=== PATIENT | male | born 1985 | race Caucasian/White ===

== ENCOUNTER 2023-05-25 11:12 | Inpatient (IN) | payer MEDICARE, SELFPAY ==
--- NOTE | 2023-05-25 11:18 | ED_ITS ---
HPI - General Adult General Chief complaint: Psychiatric Symptoms Stated complaint: Crisis Time Seen by Provider: 05/25/23 11:34 Source: patient, RN notes reviewed and old records reviewed Mode of arrival: ambulatory History of Present Illness HPI narrative: 38-year-old male with past medical history of schizophrenia presenting to the ED complaining of ETOH and cocaine abuse with increasing depression, and auditory/visual hallucinations. Reports noncompliance with his medications x few days. Admits has been on ETOH-cocaine longoria, unable to elicit quantity. Does report history of ETOH withdrawal with withdrawal seizures. admits to vague SI/depression, denies HI. Denies fever/chills, abdominal pain, nausea/vomiting Related Data Home Medications Medication Instructions Recorded Confirmed buprenorphine 2 mg-naloxone 0.5 mg 2 mg sublingual DAILY 05/25/23 05/25/23 sublingual film chlorpromazine 50 mg tablet 50 mg PO TID 05/25/23 05/25/23 clonazepam 1 mg tablet 1 mg PO TID 05/25/23 05/25/23 furosemide 20 mg tablet 20 mg PO DAILY 05/25/23 05/25/23 levothyroxine 50 mcg tablet 50 mcg PO DAILY 05/25/23 05/25/23 lithium carbonate 300 mg capsule 900 mg PO DAILY 05/25/23 05/25/23 metformin 500 mg tablet 500 mg PO DAILY 05/25/23 05/25/23 pantoprazole 40 mg tablet,delayed 40 mg PO DAILY 05/25/23 05/25/23 release quetiapine 300 mg tablet 300 mg PO DAILY 05/25/23 05/25/23 rivaroxaban 10 mg tablet (Xarelto) 10 mg PO DAILY 05/25/23 05/25/23 Allergies Allergy/AdvReac Type Severity Reaction Status Date / Time phenytoin [From DILANTIN] Allergy Unknown UNKNOWN Verified 05/25/23 11:18 venlafaxine [From EFFEXOR] Allergy Unknown UNKNOWN Verified 05/25/23 11:18 Dilantin Allergy Unknown Unknown Uncoded 05/25/23 11:18 Effexor Allergy Unknown Unknown Uncoded 05/25/23 11:18 MEDICAL TAPE Allergy Unknown UNKNOWN Uncoded 06/06/20 15:26 Review of Systems 2 Review of Systems: Constitutional: No Fever, No Chills, No Fatigue, No Malaise ENT/Mouth: No Ear Pain, No Nasal Congestion, No sore throat, No Rhinorrhea, No Swallowing Difficulty Eyes: No Eye Pain, No Swelling, No Redness, No Vision Changes Cardiovascular: No Chest Pain, No SOB, No Palpitations Respiratory: No Cough, No Sputum, No Dyspnea Gastrointestinal: No Nausea, No Vomiting, No Abdominal pain Musculoskeletal: No joint pain, No Myalgias, No Joint Swelling Skin: No Skin Lesions, No rash Neuro: No Weakness, No Dizziness, No Headache Psych: No Anxiety/Panic, No Depression, +vague SI, +AH/VH, + Social Issues Yes all other systems are reviewed and are negative Constitutional: Constitutional: Reports as per [facility] Past Medical History Attestation statement: The following information was validated with the patient. Source: old records reviewed Social History Social History Advance Directives: Yes Advance Directives Information Provided: Yes Advance Directives on File: No Physical Exam ED Vital Signs: Vital Signs - 24 hr 05/25/23 11:19 05/25/23 16:34 05/25/23 18:39 Temperature 97.9 F 97.1 F Pulse Rate 88 93 75 Respiratory Rate 18 18 Blood Pressure 165/102 H 176/89 H 163/99 H Pulse Oximetry 97 99 Oxygen Delivery Method Room Air Room Air 05/25/23 19:54 05/26/23 04:40 Temperature 97.7 F 98.6 F Pulse Rate 72 86 Respiratory Rate 18 17 Blood Pressure 149/90 H 143/87 H Pulse Oximetry 97 99 Oxygen Delivery Method Room Air Room Air BMI result Body Mass Index 35.9 Vital signs stable Const General: cooperative and no acute distress Orientation/consciousness: patient oriented x3 Limitations: no limitations [facility] Head: Yes normal to inspection and Yes atraumatic Ears: hearing grossly normal bilaterally General nose exam: Normal external nose present Face and sinus: Yes normal facial exam Eyes General: appearance normal, both eyes and all related structures EOM: EOMs intact bilaterally Neck Neck: Yes normal visual inspection and Yes no meningeal signs Resp Effort & Inspection: normal respiratory effort and no respiratory distress Auscultation: clear to auscultation bilaterally Cardio Rate: regular rate Heart sounds: S1 normal heart sound present and S2 normal heart sound present GI Inspection: Yes normal to inspection Palpation (GI): Soft to palpation, nontender, no guarding and not rigid General: Yes no CVA tenderness Back/Spine/Pelvis Back: no CVA tenderness Skin Rashes: no rashes Wounds: no wounds Neuro General: patient oriented x3, tone normal, no meningeal signs and CN's II-XI intact bilaterally Cranial nerves: Yes CN's II-XII intact bilaterally Gait exam (Neuro): Normal gait present Extrem General: Yes normal to inspection Psych Speech and movement: Pressured speech present Affect: Animated affect present Thought process: Perseverating thought process present Thought content: Hallucination(s) present and Depressive thoughts present Course Course Course Narrative: This is an RME: Additional HPI, ROS, PE not included below will be deferred to primary provider. Patient is a 38 year old male with a history of Schizophrenia and substance use presents with recovery friend who reports Grant has been struggling mentally and has relapsed, used alcohol today and cocaine 3 days ago. He recently went through relationship troubles but led him to use again. He was just in [place] 3 weeks ago. -patient agitated and requesting to leave, Section 12 sign and in patient's chart -1536-- UA negative for infection. U tox positive for cocaine, otherwise negative. Awaiting labs. Patient refusing labs. -1630--ED care transferred to [facility] pending labs & CARE [facility] 05/26/23-31--physician observation continued. Vital signs stable. Labs reviewed. Patient was evaluated by CARE team yesterday and meets criteria for hospitalization. Reevaluation(s) Reevaluation #1: Med reconciliation completed. CBC revealing a mild normocytic anemia, not needing any transfusion criteria. CMP is overall unremarkable, aside from mildly elevated alkaline phosphatase she has been seen on prior labs. Urinalysis without evidence of infection. Toxicology testing positive for cocaine, alcohol level of 83. Medically cleared at this time. Pending care team evaluation Time: 18:34 Medications Administered Generic Name Dose Route Start Last Admin Trade Name Tremaine PRN Reason Stop Dose Admin Buprenorphine/Naloxone 1 film 05/25/23 18:30 05/26/23 08:50 Buprenorphine/Naloxone 2/0.5mg Film SUBLINGUAL 1 film DAILY RAVEN Administration Chlorpromazine HCl 50 mg 05/25/23 21:00 05/26/23 08:49 Chlorpromazine Hcl 25 Mg Tablet PO 50 mg TID RAVEN Administration Clonazepam 1 mg 05/25/23 21:00 05/26/23 08:50 Clonazepam 1 Mg Tablet PO 1 mg TID RAVEN Administration Furosemide 20 mg 05/25/23 18:30 05/26/23 08:51 Furosemide 20 Mg Tablet PO 20 mg DAILY RAVEN Administration Protocol Levothyroxine Sodium 50 mcg 05/26/23 06:00 05/26/23 06:30 Levothyroxine Sodium 50 Mcg Tablet PO 50 mcg DAILY@0600 RAVEN Administration [place] Carbonate 900 mg 05/25/23 18:30 05/26/23 08:50 [place] Carbonate 300 Mg Capsule PO 900 mg DAILY RAVEN Administration Metformin HCl 500 mg 05/25/23 18:30 05/26/23 08:50 Metformin Hcl 500 Mg Tablet PO 500 mg DAILY RAVEN Administration Omeprazole 20 mg 05/26/23 06:30 05/26/23 06:30 Omeprazole 20 Mg Capsule. PO 20 mg DAILY@0630 RAVEN Administration Quetiapine Fumarate 300 mg 05/25/23 18:30 05/25/23 19:11 Quetiapine Fumarate 300 Mg Tablet PO 300 mg DAILY RAVEN Administration Discontinued Medications Generic Name Dose Route Start Last Admin Trade Name Freq PRN Reason Stop Dose Admin Lorazepam 2 mg 05/25/23 13:20 05/25/23 13:53 Lorazepam 1 Mg Tablet PO 05/25/23 13:21 2 mg ONCE ONE Administration Olanzapine 10 mg 05/25/23 13:39 05/25/23 15:09 Olanzapine Odt 10 Mg Tab.Rapdis TRANSLINGU 05/25/23 13:40 Not Given ONCE ONE Rivaroxaban 10 mg 05/25/23 18:30 05/25/23 19:11 Rivaroxaban 10 Mg Tablet PO 10 mg DAILY RAVEN Administration Medical Decision Making Medical Decision Making MDM Narrative: 38-year-old male with past medical history of schizophrenia presenting to the ED complaining of ETOH and cocaine abuse with increasing depression, and auditory/visual hallucinations. On exam hypertensive, pressured speech, perseverating, manic, reports hallucinations and depression without suicidal plan. Concern for medication noncompliance vs schizophrenia vs sampson vs psychosis. Concern for substance abuse. No evidence of EtOH withdrawal at this time Plan: Labs, tox screen, CARE consult Please refer to course for remaining clinical decision making, interpretation of labs/imaging results, and discussions with consultants and/or family members. Differential Diagnosis Differential Diagnoses: The differential diagnosis associated with the presentation includes As above Admission/Observation Consideration of admission/observation: Escalation of care including admission/observation considered Consult Healthcare Provider Management of the patient was discussed with: Behavioral Health Provider Lab Data MDM Lab Attestation statement: I reviewed the patient's lab results. As above. 05/25/23 16:29 05/25/23 16:29 Labs: Lab Results 05/25/23 05/25/23 05/25/23 Range/Units 12:06 12:06 16:29 WBC 10.9 H (4.8-10.8) X10*3/uL RBC 4.53 L (4.60-5.80) X10*6/uL Hgb 12.9 L (14.0-18.0) g/dl Hct 38.4 L (42.0-52.0) % MCV 84.8 (80.0-98.0) fL MCH 28.5 (27.0-33.0) pg MCHC 33.6 (31.0-36.0) g/dl RDW 13.2 (11.0-16.0) % Plt Count 344 (160-400) X10*3/uL MPV 9.7 (9.4-12.4) fL Immature Gran % (Auto) 0.4 (0.0-0.4) % Neut % (Auto) 72.0 (45-73) % Lymph % (Auto) 19.4 L (20-40) % [place] % (Auto) 4.5 (2-11) % Eos % (Auto) 3.1 (0-4) % Baso % (Auto) 0.6 (0-2) % Lymph # (Auto) 2.1 (1.2-4.9) X10*3/uL [place] # (Auto) 0.5 (0.1-1.2) X10*3/uL Eos # (Auto) 0.3 (0.0-0.4) X10*3/uL Baso # (Auto) 0.1 (0.0-0.2) X10*3/uL Abs Immat Gran (auto) 0.04 H (0.00-0.03) X10*3/uL Absolute Neuts (auto) 7.8 (2.0-8.3) x10*3/uL Absolute Nucleated RBC 0.000 (0.0-0.012) X10*3/uL Nucleated RBC % (auto) 0.0 (0.0-0.2) /100WBC Sodium (135-145) mmol/L Potassium (3.3-5.1) mmol/L Chloride (96-108) mmol/L Carbon Dioxide (22-29) mmol/L Anion Gap (12-20) BUN (9-16) mg/dL Creatinine (0.5-1.4) mg/dL Estim Creat Clear Calc Estimated GFR Random Glucose (60-115) mg/dL Calcium (8.4-10.2) mg/dL Magnesium (1.6-2.6) mg/dL Total Bilirubin (0.0-1.0) mg/dL AST (5-37) U/L ALT (0-40) U/L Alkaline Phosphatase (39-117) U/L Total Protein (6.5-8.0) g/dL Albumin (3.5-5.0) g/dL Urine Color Yellow Urine Appearance Clear Urine pH 6.0 (5.0-9.0) Ur Specific [place] <= 1.005 (1.005-1.025) Urine Protein Negative (Neg-Trace) mg/dL Urine Glucose (UA) Negative (Negative) mg/dL Urine Ketones Negative (Negative) mg/dL Urine Blood Negative (Negative) Urine Nitrite Negative (Negative) Ur Leukocyte Esterase Negative (Negative) Salicylates (15-30) mg/dL Urine Opiates Screen Not Detected (Not Detect) Urine Fentanyl Screen Not Detected (Not Detect) Acetaminophen (<30) mcg/mL Ur Barbiturates Screen Not Detected (Not Detect) Ur Phencyclidine Scrn Not Detected (Not Detect) Ur Amphetamines Screen Not Detected (Not Detect) U Benzodiazepines Scrn Not Detected (Not Detect) [place] (0.60-1.20) mmol/L Urine Cocaine Screen POSITIVE H (Not Detect) U Marijuana (THC) Screen Not Detected (Not Detect) Ethyl Alcohol mg/dL 05/25/23 05/25/23 05/25/23 Range/Units 16:29 16:29 16:29 WBC (4.8-10.8) X10*3/uL RBC (4.60-5.80) X10*6/uL Hgb (14.0-18.0) g/dl Hct (42.0-52.0) % MCV (80.0-98.0) fL MCH (27.0-33.0) pg MCHC (31.0-36.0) g/dl RDW (11.0-16.0) % Plt Count (160-400) X10*3/uL MPV (9.4-12.4) fL Immature Gran % (Auto) (0.0-0.4) % Neut % (Auto) (45-73) % Lymph % (Auto) (20-40) % [place] % (Auto) (2-11) % Eos % (Auto) (0-4) % Baso % (Auto) (0-2) % Lymph # (Auto) (1.2-4.9) X10*3/uL [place] # (Auto) (0.1-1.2) X10*3/uL Eos # (Auto) (0.0-0.4) X10*3/uL Baso # (Auto) (0.0-0.2) X10*3/uL Abs Immat Gran (auto) (0.00-0.03) X10*3/uL Absolute Neuts (auto) (2.0-8.3) x10*3/uL Absolute Nucleated RBC (0.0-0.012) X10*3/uL Nucleated RBC % (auto) (0.0-0.2) /100WBC Sodium 142 (135-145) mmol/L Potassium 4.3 (3.3-5.1) mmol/L Chloride 107 (96-108) mmol/L Carbon Dioxide 25 (22-29) mmol/L Anion Gap 14 (12-20) BUN 12 (9-16) mg/dL Creatinine 1.03 (0.5-1.4) mg/dL Estim Creat Clear Calc 117.9 Estimated GFR > 60 Random Glucose 113 (60-115) mg/dL Calcium 9.7 (8.4-10.2) mg/dL Magnesium 2.1 (1.6-2.6) mg/dL Total Bilirubin 0.6 (0.0-1.0) mg/dL AST 32 (5-37) U/L ALT 27 (0-40) U/L Alkaline Phosphatase 143 H (39-117) U/L Total Protein 7.5 (6.5-8.0) g/dL Albumin 4.0 (3.5-5.0) g/dL Urine Color Urine Appearance Urine pH (5.0-9.0) Ur Specific [place] (1.005-1.025) Urine Protein (Neg-Trace) mg/dL Urine Glucose (UA) (Negative) mg/dL Urine Ketones (Negative) mg/dL Urine Blood (Negative) Urine Nitrite (Negative) Ur Leukocyte Esterase (Negative) Salicylates < 5.0 L (15-30) mg/dL Urine Opiates Screen (Not Detect) Urine Fentanyl Screen (Not Detect) Acetaminophen < 17 (<30) mcg/mL Ur Barbiturates Screen (Not Detect) Ur Phencyclidine Scrn (Not Detect) Ur Amphetamines Screen (Not Detect) U Benzodiazepines Scrn (Not Detect) [place] 0.22 L (0.60-1.20) mmol/L Urine Cocaine Screen (Not Detect) U Marijuana (THC) Screen (Not Detect) Ethyl Alcohol 83 mg/dL Radiology Impression Discussion of test interpretation with radiology: I have reviewed the radiologist's reading. External Record Review External record reviewed: Inpatient record, Office record, Outpatient record, Prior outpatient labs, Prior outpatient radiology, Primary care record and Outside ED record Tests considered The following testing was considered but not selected: As above Chronic Conditions Patient?s care impacted by: Other (schizophrenia) Social Determinants Patient?s care significantly limited by Social Determinants of Health including: Inadequate housing, Low income, Alcoholism and drug addiction in family, Unemployment and Problems related to employment Discharge Plan Discharge Clinical Impression: Manic behavior, Chronic schizophrenia, Hallucinations Patient Disposition: Still a Patient Prescriptions: No Action metformin 500 mg tablet 500 mg PO DAILY quetiapine 300 mg tablet 300 mg PO DAILY clonazepam 1 mg tablet 1 mg PO TID lithium carbonate 300 mg capsule 900 mg PO DAILY levothyroxine 50 mcg tablet 50 mcg PO DAILY pantoprazole 40 mg tablet,delayed release (DR/EC) 40 mg PO DAILY furosemide 20 mg tablet 20 mg PO DAILY chlorpromazine 50 mg tablet 50 mg PO TID buprenorphine-naloxone 2-0.5 mg film 2 mg sublingual DAILY Xarelto 10 mg tablet 10 mg PO DAILY Interventions: Rogers-Suicide Risk Severity Scale Last Done: 05/26/23 05:02
[2023-05-25 11:19] VITALS: BP 165/102; PULSE 88; RESP 18; TEMP 36.6; O2SAT 97; BMI 35.9
--- NOTE | 2023-05-25 11:20 | MHC.CARE ---
CARE Team received a call from pt's mother, inquiring about the types of programs available through behavioral health. CARE Team provides this information on programs. Mother indicates that pt is not in touch with reality and describes his presentation as outrageous and obvious that he is in a psychiatric crisis. Mother reports that pt has a hx of addiction, but she reports the primary concern today is realted to his mental health. She reports that pt has been aggressive toward her. She is advocating for a crisis assessment. She shares that last week, she went before a attractions associate for [employer], but this was not granted as many of the safety concerns relate to pt's mental health. Mother reports that pt's presentation is far worse this week. Nichol (mother) can provide additional details regarding pt's presentation and can be reached at [phone]
--- NOTE | 2023-05-25 11:38 | PC.NURSE ---
machine overhauler completed w/ security. hyperverbal & pressured speech. denies SI/HI/AH/VH. Reported Recent relapse after 2 years sober.
[2023-05-25 12:59] LABS: Appearance Urine Clear; Color Urine Yellow; Glucose Urine UA Negative (Negative); Leukocyte Esterase Urine Negative (Negative); Nitrite Urine Negative (Negative); Specific Gravity - Urine <= 1.005 (1.005-1.025); Urine Blood Negative (Negative); Urine Ketones Negative (Negative); Urine Protein Negative (Neg-Trace)
[2023-05-25 13:06] LABS: Amphetamine Screen Urine Not Detected (Not Detect); Barbiturates, Urine Not Detected (Not Detect); Benzodiazepines Screen Urine Not Detected (Not Detect); Cannabinoid Screen Urine Not Detected (Not Detect); Cocaine Screen Urine POSITIVE (Not Detect); Fentanyl, urine Not Detected (Not Detect); Opiate Screen Urine Not Detected (Not Detect); Phencyclidine Screen Urine Not Detected (Not Detect)
--- NOTE | 2023-05-25 13:20 | PC.ADMIT ---
Pt refusing blood work. Becoming agitated when tech Lorri attempted. 2nd attempted by tech Hanna, pt still agitated and refusing. Charge nurse Kathia sanders and provider Donna sanders.
--- NOTE | 2023-05-25 13:23 | PC.NURSE ---
pt offered PO ativan per order and refused.
--- NOTE | 2023-05-25 13:46 | MHC.CARE ---
Pt was placed on section 12 due to agitation and threatening to kick down door in POD. Pt verbally argumentative, CARE team clinician met with patient and explained process of medical clearance and CARE teams process of assessment. Pt was informed he is currently on Section 12 and stated I want a corrugator ,pt was provided with copy of his rights and contact information for [employer].
[2023-05-25] MEDS: LORazepam 1 MG TABLET 2 MG PO (13:53)
--- NOTE | 2023-05-25 14:08 | PC.NURSE ---
Pt placed on sec 12, and is aware
--- NOTE | 2023-05-25 15:09 | PC.NURSE ---
pt refused Zyprexa, stated you just want to put me to sleep and shut me up .
[2023-05-25 16:34] VITALS: BP 176/89; PULSE 93; RESP 18; TEMP 36.2; O2SAT 99
[2023-05-25 16:34] LABS: MANUAL DIFF FLAG NO
[2023-05-25 16:53] LABS: Alanine Aminotransferase 27 U/L (0-40); Alkaline Phosphatase 143 U/L (39-117); Anion Gap 14 (12-20); Aspartate Amino Transferase 32 U/L (5-37); Bilirubin Total 0.6 mg/dL (0.0-1.0); Blood Urea Nitrogen 12 mg/dL (9-16); Calcium 9.7 mg/dL (8.4-10.2); Carbon Dioxide 25 mmol/L (22-29); Chloride 107 mmol/L (96-108); Creatinine Clr Calc Pharmacy 117.9; Estimated Glomerular Filt Rate > 60; Ethanol 83 mg/dL; Glucose Random 113 mg/dL (60-115); Magnesium 2.1 mg/dL (1.6-2.6); Potassium 4.3 mmol/L (3.3-5.1); Sodium 142 mmol/L (135-145); Total Protein 7.5 g/dL (6.5-8.0)
[2023-05-25 16:57] LABS: Basophils Absolute Auto 0.1 X10*3/uL (0.0-0.2); Basophils Percent Auto 0.6 % (0-2); Eosinophils Absolute Auto 0.3 X10*3/uL (0.0-0.4); Eosinophils Percent Auto 3.1 % (0-4); Hematocrit 38.4 % (42.0-52.0); Hemoglobin 12.9 g/dl (14.0-18.0); Imm Gran Abs Auto 0.04 X10*3/uL (0.00-0.03); Imm Gran Pct Auto 0.4 % (0.0-0.4); Lymphocytes Absolute Auto 2.1 X10*3/uL (1.2-4.9); Lymphocytes Percent Auto 19.4 % (20-40); Mean Corpuscular HGB Conc 33.6 g/dl (31.0-36.0); Mean Corpuscular Hemoglobin 28.5 pg (27.0-33.0); Mean Corpuscular Volume 84.8 fL (80.0-98.0); Mean Platelet Volume 9.7 fL (9.4-12.4); Monocytes Absolute Auto 0.5 X10*3/uL (0.1-1.2); Monocytes Percent Auto 4.5 % (2-11); Neutrophils Absolute Auto 7.8 x10*3/uL (2.0-8.3); Platelet Count 344 X10*3/uL (160-400); Red Blood Count 4.53 X10*6/uL (4.60-5.80); Red Cell Distribution Width 13.2 % (11.0-16.0); White Blood Count 10.9 X10*3/uL (4.8-10.8)
[2023-05-25 16:58] LABS: Acetaminophen LAB < 17 mcg/mL (<30); Salicylate < 5.0 mg/dL (15-30)
[2023-05-25] MEDS: metFORMIN HCl 500 MG TABLET PO (18:38)
[2023-05-25] MEDS: Buprenorphine/Naloxone 2/0.5mg FILM 1 FILM SUBLINGUAL (18:38)
[2023-05-25] MEDS: Furosemide 20 MG TABLET PO (18:38)
[2023-05-25] MEDS: Lithium Carbonate 300 MG CAPSULE 900 MG PO (18:38)
[2023-05-25 18:39] VITALS: BP 163/99; PULSE 75
[2023-05-25 19:08] LABS: Lithium 0.22 mmol/L (0.60-1.20)
[2023-05-25] MEDS: Rivaroxaban 10 MG TABLET PO (19:11)
[2023-05-25] MEDS: QUEtiapine Fumarate 300 MG TABLET PO (19:11)
--- NOTE | 2023-05-25 19:24 | PHA.MEDREC ---
Pharmacy Consult ? Medication Reconciliation Pharmacy has reviewed the medication reconciliation completed by Dianne. Megan Erickson, ShadD
[2023-05-25] MEDS: Omeprazole 20 MG CAPSULE.DR PO (19:49)
[2023-05-25] MEDS: chlorproMAZINE HCl 25 MG TABLET 50 MG PO (19:49)
[2023-05-25] MEDS: clonazePAM 1 MG TABLET PO (19:49)
[2023-05-25 19:54] VITALS: BP 149/90; PULSE 72; RESP 18; TEMP 36.5; O2SAT 97
--- NOTE | 2023-05-26 | ECG_ITS ---
Test Reason : + COCAINE Blood Pressure : / mmHG Vent. Rate : 069 BPM Atrial Rate : 069 BPM P-R Int : 160 ms QRS Dur : 076 ms QT Int : 400 ms P-R-T Axes : 021 026 023 degrees QTc Int : 428 ms Normal sinus rhythm with sinus arrhythmia Nonspecific ST abnormality Abnormal ECG When compared with ECG of 06-APR-2017 09:00, No significant change was found Referred By: Karolina Mendoza Electronically Signed By:KENTON MOORE
[2023-05-26 04:40] VITALS: BP 143/87; PULSE 86; RESP 17; TEMP 37; O2SAT 99
[2023-05-26] MEDS: Omeprazole 20 MG CAPSULE.DR PO (06:30)
[2023-05-26] MEDS: Levothyroxine Sodium 50 MCG TABLET PO (06:30)
--- NOTE | 2023-05-26 06:38 | PC.NURSE ---
Patient slept through the night, no distress observed/reported, disposition per care team is section 12 inpatient Bed search, behavior non concerning, Asymptomatic of withdrawal, CIWA at 0638 was 2, medication complient, labs completed/resulted, will continue to monitor.
--- NOTE | 2023-05-26 07:35 | PC.NURSE ---
patient appears to remain at rest at present, respirations are even and unlabored patient appears in no distress.
[2023-05-26] MEDS: chlorproMAZINE HCl 25 MG TABLET 50 MG PO ×3 (08:49→20:43)
[2023-05-26] MEDS: clonazePAM 1 MG TABLET PO ×3 (08:50→20:44)
[2023-05-26] MEDS: Buprenorphine/Naloxone 2/0.5mg FILM 1 FILM SUBLINGUAL (08:50)
[2023-05-26] MEDS: Lithium Carbonate 300 MG CAPSULE 900 MG PO (08:50)
[2023-05-26] MEDS: metFORMIN HCl 500 MG TABLET PO (08:50)
[2023-05-26] MEDS: Furosemide 20 MG TABLET PO (08:51)
[2023-05-26 12:45] VITALS: BP 123/72; PULSE 85; RESP 15; TEMP 36.8; O2SAT 97
[2023-05-26] MEDS: QUEtiapine Fumarate 300 MG TABLET PO (12:49)
[2023-05-26] MEDS: Ondansetron ODT 4 MG TAB.RAPDIS TRANSLINGU (12:49)
[2023-05-26 13:09] LABS: COVID-19 Test Negative (Negative); IDNOW Serial# 9DB6401D
--- NOTE | 2023-05-26 15:08 | PC.NURSE ---
Assumed care of patient at 1500, patient medicated per MAR, offers no complaints to this RN at this time
--- OUTSIDE RECORDS SUMMARY | 2023-05-26 16:16 | XMS_ITS | Continuity of Care Document ---
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 Name Role Phone Eugene Aquino MD Primary Care Physician Encounter [facility] Date(s): 10/03/19 - 10/13/19 [facility] Adult [address] [place] [address]- [facility] Attending Physician: Admtr, [id number] Admitting Physician: AdmtrDavid Referring Physician: Admtr, [id number] Allergies, Adverse Reactions, Alerts Substance Reaction Severity Status Dilantin Persistent Moderate Active Effexor Persistent Moderate Active Immunizations Given and Recorded Vaccine Date Status Refusal Reason tetanus/diphtheria/pertussis, acel(Tdap) 1 12/15/18 Given Not Given Vaccine Date Status Refusal Reason Influenza Virus Vaccine (oldterm) 09/28/19 Not Giv en Patient Refuses pneumococcal 23-valent vaccine 03/09/17 Not Given Patient Refuses pneumococcal 23-valent vaccine 2 01/31/17 Not Give n Patient Refuses 1Result Comment: [id number] 2Result Note: [facility] no Medications Abilify 10 mg oral tablet 10 mg, 1, tablet, By Mouth, Daily, Refills 0, Maintenance, 05/26/19 10:04:39 EDT Start Date: 05/26/19 Status: Ordered cloNIDine 0.2 mg oral tablet 0.2 mg, 1, tablet, By Mouth, 2 times a day, Refills 0, Maintenance, 05/26/19 10:10:20 EDT Start Date: 05/26/19 Status: Ordered lithium 600 mg oral capsule 1 capsule = 600 mg, By Mouth, 2 times a day, # 180 capsule, 0 Refills, Maintenance, 05/26/19 10:04:13 EDT, Capsule Start Date: 05/26/19 Status: Ordered Methadone = 47 mg, By Mouth, Daily, [place], 0 Refills, Maintenance, 09/12/19 15:39:00 EST, Partial fill upon patient request Start Date: 09/12/19 Status: Ordered mirtazapine 30 mg oral tablet 1 tablet = 30 mg, By Mouth, Daily at bedtime, # 30 tablet, 0 Refills, Maintenance, 05/26/19 10:13:07 EDT, Tablet Start Date: 05/26/19 Status: Ordered SEROquel 100 mg oral tablet See Instructions, NEEDED, Refills 0, Maintenance, 05/26/19 10:05:15 EDT, Instructions Replace Required Details Start Date: 05/26/19 Status: Ordered SEROquel 200 mg oral tablet 200 mg, 1, tablet, By Mouth, Daily, Refills 0, Maintenance, 05/26/19 10:04:57 EDT Start Date: 05/26/19 Status: Ordered Ventolin HFA 108 mcg/inh inhalation aerosol with adapter See Instructions, PRN for wheezing, 2 puffs Inhalation Every 4 hours-6hours, # 18 Gm, 0 Refills, Maintenance, 09/27/19 13:43:00 EST, Aerosol, [id number], 2 puffs Inhalation Every 4 hours-6hours, 181, cm, 09/12/19 15:37:00 EST, Height, 100, kg,... 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 Sex
--- OUTSIDE RECORDS SUMMARY | 2023-05-26 16:16 | XMS_ITS | Continuity of Care Document ---
Author Name Unknown Organization [facility] Grant Bravo lt Address [address] [place] [address]- Care Team Providers Care Neurology Director Name Role Phone Eugene Aquino MD Primary Care Physician [place] [facility] [place]): 01/03/20 - 01/10/20 [facility] Adult [address] [place] [address]- [facility] Encounter Diagnosis Bilateral leg edema(Discharge Diagnosis) - 01/03/20 Attending Physician: Eugene Aquino MD Allergies, Adverse Reactions, Alerts Substance Reaction Severity [...] Not Give n Patient Refuses 1Result Comment: [id number] 2Result Note: [facility] hel no Medications AirDuo RespiClick 232 mcg-14 mcg/inh inhalation powder 1, inhalation, Inhalation, 2 times a day, rinse mouth and throat after use, # 1 each, Refills 11, Tot. Refills 11, Maintenance, 12/01/19 14:31:00 EDT, Powder, Route to Pharmacy Electronically, [id number], [facility]/pharmacy #[id number],... Start Date: 12/01/19 Status: Ordered cloNIDine 0.2 mg oral tablet 0.2 mg, 1, tablet, By Mouth, 2 times a day, Refills 0, Maintenance, 05/26/19 10:10:20 EDT Start Date: 05/26/19 Status: Ordered Compression Stockings See Instructions, # 4 each, Maintenance, knee length 20-30 mm Hg DX: Venous insufficiency edema, 12/22/19 12:55:00 EDT, Compound Start Date: 12/22/19 Status: Ordered furosemide 20 mg oral tablet 20 mg, 1, tablet, By Mouth, 2 times a day, take doses 6 hours apart, # 60 tablet, Refills 1, Tot. Refills 1, Maintenance, 01/08/20 12:10:00 EDT, Route to Pharmacy Electronically, [facility]/pharmacy #[id number], 180, cm, 11/29/19 16:16:00 EDT, Height, 136.2, kg, 0... Start Date: 01/08/20 Status: Ordered Methadone = 47 mg, By Mouth, Daily, [place], 0 Refills, Maintenance, 09/12/19 15:39:00 EST, Partial fill upon patient request Start Date: 09/12/19 Status: Ordered mirtazapine 30 mg oral tablet 1 tablet = 30 mg, By Mouth, Daily at bedtime, # 30 tablet, 0 Refills, Maintenance, 05/26/19 10:13:07 EDT, Tablet Start Date: 05/26/19 Status: Ordered Risperidone Bedtime, 0 Refills, Maintenance, 11/17/19 14:10:00 EST Start Date: 11/17/19 Status: Ordered SEROquel 100 mg oral tablet See Instructions, NEEDED, Refills 0, Maintenance, 05/26/19 10:05:15 EDT, Instructions Replace Required Details Start Date: 05/26/19 Status: Ordered Symbicort 160mcg/4.5mcg Inhaler 1, puffs, Inhalation, 2 times a day, # 60 each, Refills 11, Tot. Refills 11, Maintenance, 11/29/19 12:36:00 EDT, Aerosol, Route to Pharmacy Electronically, [id number], [facility]/pharmacy #[id number], 181, cm, 11/17/19 14:07:00 EST, Heigh... Start Date: 11/29/19 Status: Ordered Ventolin HFA 108 mcg/inh inhalation aerosol with adapter See Instructions, PRN for wheezing, 2 puffs Inhalation Every 4 hours-6hours, # 18 Gm, 5 Refills, Maintenance, 11/13/19 15:16:00 EST, Aerosol, [id number], 2 puffs Inhalation Every 4 hours-6hours, 181, cm, 09/28/19 10:11:00 EST, Height, 100, kg,... 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 Sex
--- OUTSIDE RECORDS SUMMARY | 2023-05-26 16:16 | XMS_ITS | Continuity of Care Document ---
Author Name Unknown Organization [facility] Grant Bravo lt Address [address] [place] [address]- Care Team Providers Care Photographic Colorist Name Role Phone Eugene Aquino MD Primary Care Physician [place] [facility] [place] - 01/17/20 [facility] Adult [address] [place] [address]- [facility] Attending Physician: Eugene Aquino MD Allergies, Adverse [...] Not Give n Patient Refuses 1Result Comment: [id number] 2Result Note: states [place] no Medications AirDuo RespiClick 232 mcg-14 mcg/inh inhalation powder 1, inhalation, Inhalation, 2 times a day, rinse mouth and throat after use, # 1 each, Refills 11, Tot. Refills 11, Maintenance, 12/01/19 14:31:00 EDT, Powder, Route to Pharmacy Electronically, [id number], [facility]/pharmacy #[id number],... Start Date: 12/01/19 Status: Ordered cloNIDine 0.2 [...] 01/08/20 12:10:00 EDT, Route to Pharmacy Electronically, [facility]/pharmacy #[id number], 180, cm, 11/29/19 16:16:00 EDT, Height, 136.2, kg, 0... Start Date: 01/08/20 Status: Ordered Methadone = 47 mg, By Mouth, Daily, [place], 0 Refills, Maintenance, 09/12/19 15:39:00 EST, Partial [...] 12:36:00 EDT, Aerosol, Route to Pharmacy Electronically, [id number], [facility]/pharmacy #[id number], 181, cm, 11/17/19 14:07:00 EST, Heigh... [...]
--- OUTSIDE RECORDS SUMMARY | 2023-05-26 16:16 | XMS_ITS | Continuity of Care Document ---
Author Name Unknown Organization [facility] Grant Bravo lt Address [address] [place] [address]- Care Team Providers Care Clip Wrapper Name Role Phone Eugene Aquino MD Primary Care Physician [place] [facility] [place] 09/19/19 - 10/22/19 [facility] Adult [address] [place] [address]- [facility] Attending Physician: Eugene Aquino MD Allergies, Adverse [...] Not Give n Patient Refuses 1Result Comment: [phone] 2Result Note: [facility] hel no Medications Abilify 10 mg oral tablet [...] Methadone = 47 mg, By Mouth, Daily, [place], 0 Refills, Maintenance, 09/12/19 15:39:00 EST, Partial [...]
--- OUTSIDE RECORDS SUMMARY | 2023-05-26 16:16 | XMS_ITS | Continuity of Care Document ---
Author Name Unknown Organization [facility] Grant Bravo lt Address [address] [place] [address]- Care Team Providers Care Lay Up Operator Name Role Phone Eugene Aquino MD Primary Care Physician En[place] [facility] [place] Date(s): 09/11/19 - 10/14/19 [facility] Adult [address] [place] [address]- [facility] Attending Physician: Eugene Aquino MD Allergies, Adverse [...] Not Give n Patient Refuses 1Result Comment: [id number] 2Result Note: [facility] hel no Medications Abilify 10 mg [...] Methadone = 47 mg, By Mouth, Daily, [place], 0 Refills, Maintenance, 09/12/19 15:39:00 EST, Partial [...]
--- OUTSIDE RECORDS SUMMARY | 2023-05-26 16:16 | XMS_ITS | Continuity of Care Document ---
Author Name Unknown Organization [facility] Address [address] [address]- Care Team Providers Care Wrist Closer Name Role Phone Kenia EVANS, Eugene Villafuerte Primary Care Physician [phone] [place] [facility] [place] Date(s): 04/02/20 - 05/02/20 [facility] [address] [address]- [place] Attending Physician: David Martínez Admitting Physician: David Martínez Referring Physician: AdmDavid blanco Allergies, Adverse Reactions, Alerts Substance Reaction Severity [...] Not Give n Patient Refuses 1Result Comment: [id number] 2Result Note: states hell no Medications AirDuo RespiClick 232 mcg-14 mcg/inh inhalation powder 1, inhalation, Inhalation, 2 times a day, rinse mouth and throat after use, # 1 each, Refills 11, Tot. Refills 11, Maintenance, 12/01/19 14:31:00 EDT, Powder, Route to Pharmacy Electronically, [id number], [facility]/pharmacy #[id number],... Start Date: 12/01/19 Status: Ordered amlodipine-benazepril 5 mg-10 mg oral capsule 1 capsule, By Mouth, Daily, # 30 capsule, 1 Refills, Maintenance, 04/01/20 16:45:00 EDT, Capsule, [facility]/pharmacy #[id number], 1 capsule By Mouth Daily, 180, cm, 04/01/20 15:06:00 EDT, Height, 147.8, kg, 02/27/20 16:52:00 EDT, Dry Weight Start Date: 04/01/20 Status: Ordered Compression Stockings See Instructions, # 4 each, Maintenance, knee length 20-30 mm Hg DX: Venous insufficiency edema, 12/22/19 12:55:00 EDT, Compound Start Date: 12/22/19 Status: Ordered furosemide 20 mg oral tablet 40 mg, 2, tablet, By Mouth, Daily, take doses 6 hours apart, # 45 tablet, Refills 1, Tot. Refills 1, Maintenance, 02/27/20 17:16:00 EDT, [id number], 180, cm,02/27/20 16:52:00 EDT, Height, 147.8, kg, 02/27/20... Start Date: 02/27/20 Status: Ordered Methadone = 20 mg, By Mouth, Daily, [place], 0 Refills, Maintenance, 09/12/19 15:39:00 EST, Partial [...] 12:36:00 EDT, Aerosol, Route to Pharmacy Electronically, [id number], [facility]/pharmacy #[id number], 181, cm, 11/17/19 14:07:00 EST, Heigh... Start Date: 11/29/19 Status: Ordered Ventolin HFA 108 mcg/inh inhalation aerosol with adapter See Instructions, PRN for wheezing, 2 puffs Inhalation Every 4 hours-6hours, # 18 Gm, 5 Refills, Maintenance, 11/13/19 15:16:00 EST, Aerosol, [facility]/pharmacy #[id number], 2 puffs Inhalation Every 4 hours-6hours, 181, cm, 09/28/19 10:11:00 EST, Height, 100, kg,... 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
--- OUTSIDE RECORDS SUMMARY | 2023-05-26 16:16 | XMS_ITS | Continuity of Care Document ---
Author Name Unknown Organization [facility] Travis Burns Bravo lt Address [address] [place] [address]- Care Team Providers Care Master Control Technician Name Role Phone Eugene Aquino MD Primary Care Physician En[place] [facility] [place] Date(s): 12/22/19 - 12/29/19 [facility] Adult [address] [place] [address]- [facility] Encounter Diagnosis Bilateral leg edema(Discharge Diagnosis) - 12/22/19 Attending Physician: Eugene Aquino MD Allergies, Adverse [...] Not Give n Patient Refuses 1Result Comment: [id number] 2Result Note: [facility] hel no Medications AirDuo RespiClick 232 mcg-14 mcg/inh inhalation powder 1, inhalation, Inhalation, 2 times a day, rinse mouth and throat after use, # 1 each, Refills 11, Tot. Refills 11, Maintenance, 12/01/19 14:31:00 EDT, Powder, Route to Pharmacy Electronically, [id number], [facility]/pharmacy #[id number],... Start Date: 12/01/19 Status: Ordered cloNIDine 0.2 [...] 6 hours apart, # 60 tablet, Refills 0, Tot. Refills 0, Maintenance, 12/18/19 14:53:00 EDT, Route to Pharmacy Electronically, [facility]/pharmacy #[id number], 180, cm, 11/29/19 16:16:00 EDT, Height, 136.2, kg, 0... Start Date: 12/18/19 Status: Ordered Methadone = 47 mg, By Mouth, Daily, [place], 0 Refills, Maintenance, 09/12/19 15:39:00 EST, Partial [...] 12:36:00 EDT, Aerosol, Route to Pharmacy Electronically, [id number], [facility]/pharmacy #[id number], 181, cm, 11/17/19 14:07:00 EST, [...] Service Informant Bilateral leg edema Discharge Diagnosis 12/22/19 Social History Social History Type Response Tobacco Use: Vape. Sex
--- OUTSIDE RECORDS SUMMARY | 2023-05-26 16:16 | XMS_ITS | Continuity of Care Document ---
Author Name Unknown Organization [facility] Bravo Address [address] [place] [address]- Care Team Providers Care Postal Service Sectional Center Manager Name Role Phone Kenia EVANS, Eugene Villafuerte Primary Care Physician [phone] Encounter [facility] Date(s): 05/31/20 - 06/30/20 [facility] Adult [address] [place] [address]- [facility] Allergies, Adverse Reactions, Alerts Substance Reaction Severity [...] Not Give n Patient Refuses 1Result Comment: [id number] 2Result Note: [place] no Medications AirDuo RespiClick 232 mcg-14 mcg/inh inhalation powder 1, inhalation, Inhalation, 2 times a day, rinse mouth and throat after use, # 1 each, Refills 11, Tot. Refills 11, Maintenance, 12/01/19 14:31:00 EDT, Powder, Route to Pharmacy Electronically, [id number], [facility]/pharmacy #[id number],... Start Date: 12/01/19 Status: Ordered amlodipine-benazepril 5 mg-10 mg oral capsule 1 capsule, By Mouth, Daily, # 30 capsule, 2 Refills, Maintenance, 06/04/20 14:52:00 EDT, Capsule, [facility]/pharmacy #[id number], 1 capsule By Mouth Daily, 180, cm, 04/01/20 15:06:00 EDT, Height, 147.8, kg, 02/27/20 16:52:00 EDT, Dry Weight Start Date: 06/04/20 Status: Ordered Compression Stockings See Instructions, # 4 each, Maintenance, knee length 20-30 mm Hg DX: Venous insufficiency edema, 12/22/19 12:55:00 EDT, Compound Start Date: 12/22/19 Status: Ordered furosemide 20 mg oral tablet 40 mg, 2, tablet, By Mouth, Daily, take doses 6 hours apart, # 45 tablet, Refills 1, Tot. Refills 1, Maintenance, 02/27/20 17:16:00 EDT, Route to Pharmacy Electronically, [facility]/pharmacy #[id number], 180, cm,02/27/20 16:52:00 EDT, Height, 147.8, kg, 02/27/20... Start Date: 02/27/20 Status: Ordered Methadone = 20 mg, By Mouth, Daily, [place], 0 Refills, Maintenance, 09/12/19 15:39:00 EST, Partial [...] 12:36:00 EDT, Aerosol, Route to Pharmacy Electronically, [id number], [id number], 181, cm, 11/17/19 14:07:00 EST, Heigh... [...]
--- OUTSIDE RECORDS SUMMARY | 2023-05-26 16:16 | XMS_ITS | Continuity of Care Document ---
Author Name Unknown Organization [facility] Bravo lt Address [address] [place] [address]- Care Team Providers Care Software Development Analyst Name Role Phone Eugene Aquino MD Primary Care Physician [phone] Encounter [facility] Date(s): 09/28/19 - 11/02/19 [facility] Adult [address] [place] [address]- [facility] Attending Physician: Eugene Aquino MD Allergies, [...] Not Give n Patient Refuses 1Result Comment: [id number] 2Result Note: [facility] hel no Medications Abilify 10 mg [...] Methadone = 47 mg, By Mouth, Daily, [place], 0 Refills, Maintenance, 09/12/19 15:39:00 EST, Partial [...]
--- OUTSIDE RECORDS SUMMARY | 2023-05-26 16:17 | XMS_ITS | Continuity of Care Document ---
Author Name Unknown Organization [facility] Bravo Address [address] [place] [address]- Care Team Providers Care Horseradish Maker Name Role Phone Kenia EVANS, Eugene Villafuerte Primary Care Physician [phone] En[place] [facility] [place] Date(s): 03/15/20 - 03/22/20 [facility] Adult [address] [place] [address]- [facility] Attending Physician: Tricia FONTANEZ, Neyda Gross Allergies, Adverse Reactions, Alerts Substance Reaction Severity [...] Not Give n Patient Refuses 1Result Comment: [id number] 2Result Note: states hel no Medications AirDuo RespiClick 232 mcg-14 mcg/inh inhalation powder 1, inhalation, Inhalation, 2 times a day, rinse mouth and throat after use, # 1 each, Refills 11, Tot. Refills 11, Maintenance, 12/01/19 14:31:00 EDT, Powder, Route to Pharmacy Electronically, [id number], [facility]/pharmacy #[id number],... Start Date: 12/01/19 Status: Ordered Compression Stockings See Instructions, # 4 each, Maintenance, knee length 20-30 mm Hg DX: Venous insufficiency edema, 12/22/19 12:55:00 EDT, Compound Start Date: 12/22/19 Status: Ordered furosemide 20 mg oral tablet 40 mg, 2, tablet, By Mouth, Daily, take doses 6 hours apart, # 45 tablet, Refills 1, Tot. Refills 1, Maintenance, 02/27/20 17:16:00 EDT, Route to Pharmacy Electronically, [facility]/pharmacy #[id number], 180, cm,02/27/20 16:52:00 EDT, Height, 147.8, kg, 02/27/20... Start Date: 02/27/20 Status: Ordered Methadone = 20 mg, By Mouth, Daily, [place], 0 Refills, Maintenance, 09/12/19 15:39:00 EST, Partial [...] 12:36:00 EDT, Aerosol, Route to Pharmacy Electronically, [id number], [facility]/pharmacy #[id number], 181, cm, 11/17/19 14:07:00 EST, Heigh... [...]
--- OUTSIDE RECORDS SUMMARY | 2023-05-26 16:17 | XMS_ITS | Continuity of Care Document ---
Author Name Unknown Organization [facility] Address [address] [place] [address]- Care Team Providers Care Storage Facility Housekeeper Name Role Phone Eugene Aquino MD Primary Care Physician [phone] [place] [facility] [place](s[place] 02/27/20 - 03/05/20 [facility] [address] [place] [address]- [facility] Encounter Diagnosis Leg swelling(Discharge Diagnosis) - 02/27/20 Attending Physician: Lupe EVANS, Guru Oates Referring Physician: Eugene Aquino MD Allergies, Adverse Reactions, [...] Not Give n Patient Refuses 1Result Comment: [id number] 2Result Note: states [place] no Medications AirDuo RespiClick 232 mcg-14 mcg/inh inhalation powder 1, inhalation, Inhalation, 2 times a day, rinse mouth and throat after use, # 1 each, Refills 11, Tot. Refills 11, Maintenance, 12/01/19 14:31:00 EDT, Powder, Route to Pharmacy Electronically, [id number], [facility]/pharmacy #[id number],... Start Date: 12/01/19 Status: Ordered Compression Stockings See Instructions, # 4 each, Maintenance, knee length 20-30 mm Hg DX: Venous insufficiency edema, 12/22/19 12:55:00 EDT, Compound Start Date: 12/22/19 Status: Ordered furosemide 20 mg oral tablet 60 mg, 3, tablet, By Mouth, Daily, take doses 6 hours apart, # 45 tablet, Refills 1, Tot. Refills 1, Maintenance, 02/27/20 17:16:00 EDT, Route to Pharmacy Electronically, [facility]/pharmacy #[id number], 180, cm,02/27/20 16:52:00 EDT, Height, 147.8, kg, 02/27/20... Start Date: 02/27/20 Status: Ordered Methadone = 20 mg, By Mouth, Daily, [place], 0 Refills, Maintenance, 09/12/19 15:39:00 EST, Partial [...] 12:36:00 EDT, Aerosol, Route to Pharmacy Electronically, [id number], [facility]/pharmacy #[id number], 181, cm, [...] Dates Health Status Cl inical Service Informant Leg swelling Discharge Diagnosis 02/27/20 Vital Signs Most recent to oldest [Reference Range]: 1 Height 180 cm (02/27/20 4:52 PM) Weight 147.8 kg (02/27/20 4:52 PM) Oxygen Saturation [94-100 %] 99 % (02/27/20 4:52 PM) Pulse Rate [55-90 bpm] 85 bpm (02/27/20 4:52 PM) Body Mass Index [18.5-24.99] 45.62 *>HHI* (02/27/20 4:52 PM) Blood Pressure [90-138/55-84 mm Hg] 138/ 80mm Hg (02/27/20 4:52 PM) Respiratory Rate [16-30 br/min] 20 br/mi n (02/27/20 4:52 PM) Temperature [96.8-100.4 DegF] 97 DegF (02/27/20 4:52 PM) Mode of Delivery (Oxygen) Room air (02/27/20 4:52 PM) Blood pressure sites Arm, left (02/27/20 4:52 PM) Temperature Route Temporal (02/27/20 4:52 PM) Dry Weight 147.8 kg (02/27/20 4:52 PM) Weight Obtained Via Standing scale (02/27/20 4:52 PM) Dry Weight Obtained Via Standing scale (02/27/20 4:52 PM) Social History Social History Type Response Smoking Status 5-9 cigarettes (betw een 1/4 to 1/2 pack)/day in last 30 days entered on: 02/27/20 Sex
--- OUTSIDE RECORDS SUMMARY | 2023-05-26 16:17 | XMS_ITS | Continuity of Care Document ---
Author Name Unknown Organization [facility] Address [address] [facility] [place] [address]- Care Team Providers Care Production Proofreader Name Role Phone Kenia EVANS, Eugene Villafuerte Primary Care Physician Encounter 02/26/20 - 03/04/20 [facility] [address], [address] [place] [address]- [phone] Attending Physician: Neyda Clarke NP Admitting Physician: Neyda Clarke NP Referring Physician: Neyda Clarke NP Allergies, Adverse Reactions, Alerts Substance Reaction Severity [...] Not Give n Patient Refuses 1Result Comment: [id number] 2Result Note: states hell no Medications AirDuo RespiClick 232 mcg-14 mcg/inh inhalation powder 1, inhalation, Inhalation, 2 times a day, rinse mouth and throat after use, # 1 each, Refills 11, Tot. Refills 11, Maintenance, 12/01/19 14:31:00 EDT, Powder, Route to Pharmacy Electronically, [id number], [facility]/pharmacy #[id number],... Start Date: 12/01/19 Status: Ordered Compression [...] 02/27/20 17:16:00 EDT, Route to Pharmacy Electronically, [facility]/pharmacy #[id number], 180, cm,02/27/20 16:52:00 EDT, Height, 147.8, kg, 02/27/20... Start Date: 02/27/20 Status: Ordered Methadone = 20 mg, By Mouth, Daily, [place], 0 Refills, Maintenance, 09/12/19 15:39:00 EST, Partial [...] 12:36:00 EDT, Aerosol, Route to Pharmacy Electronically, [id number], [facility]/pharmacy #[id number], 181, cm, 11/17/19 14:07:00 EST, Heigh... [...]
--- OUTSIDE RECORDS SUMMARY | 2023-05-26 16:17 | XMS_ITS | Continuity of Care Document ---
Author Name Unknown Organization [facility] Address [address] [place] [address]- Care Team Providers Care Film Crew Member Name Role Phone Kenia EVANS, Eugene Villafuerte Primary Care Physician [phone] [place] [facility] [place]/19[place]20 - 03/26/20 [facility] [address] [place] [address]- [facility] Attending Physician: Ludwig Almeida MD Admitting Physician: Ludwig Almeida MD Referring Physician: Ludwig Almeida MD Allergies, Adverse Reactions, Alerts Substance Reaction [...] Not Give n Patient Refuses 1Result Comment: [id number] 2Result Note: states hell no Medications AirDuo RespiClick 232 mcg-14 mcg/inh inhalation powder 1, inhalation, Inhalation, 2 times a day, rinse mouth and throat after use, # 1 each, Refills 11, Tot. Refills 11, Maintenance, 12/01/19 14:31:00 EDT, Powder, Route to Pharmacy Electronically, [id number], [facility]/pharmacy #[id number],... Start Date: 12/01/19 Status: Ordered Compression [...] 02/27/20 17:16:00 EDT, Route to Pharmacy Electronically, [facility]/pharmacy #[id number], 180, cm,02/27/20 16:52:00 EDT, Height, 147.8, kg, 02/27/20... Start Date: 02/27/20 Status: Ordered Methadone = 20 mg, By Mouth, Daily, [place], 0 Refills, Maintenance, 09/12/19 15:39:00 EST, Partial [...] 12:36:00 EDT, Aerosol, Route to Pharmacy Electronically, [id number], [facility]/pharmacy #[id number], 181, cm, 11/17/19 14:07:00 EST, Heigh... [...] mood disorder with ps ychotic features(Confirmed) Active Vital Signs Most recent to oldest [Reference Range]: 1 Height 180 cm (03/19/20 8:03 AM) Weight 136.2 kg (03/19/20 8:03 AM) Oxygen Saturation [94-100 %] 96 % (03/19/20 8:03 AM) Pulse Rate [55-90 bpm] 81 bpm (03/19/20 8:03 AM) Body Mass Index [18.5-24.99] 42.04 *>HHI* (03/19/20 8:03 AM) Blood Pressure [90-138/55-84 mm Hg] 150/ 90mm Hg *H* (03/19/20 8:03 AM) Mode of Delivery (Oxygen) Room air (03/19/20 8:03 AM) Blood pressure sites Arm, left (03/19/20 8:03 AM) Weight Obtained Via Patient/family state d (03/19/20 8:03 AM) Social History Social History Type Response Smoking Status 5-9 cigarettes (betw een 1/4 to 1/2 pack)/day in last 30 days entered on: 02/27/20 Sex
--- OUTSIDE RECORDS SUMMARY | 2023-05-26 16:17 | XMS_ITS | Continuity of Care Document ---
Author Name Unknown Organization [facility]ravo lt Address [address] [place] [address]- Care Team Providers Care Low Raw Sugar Cutter Name Role Phone Eugene Aquino MD Primary Care Physician Encounter [facility] Date(s): 12/18/19 - 12/25/19 [facility] Adult [address] [place] [address]- [facility] Encounter Diagnosis Bilateral leg edema(Discharge Diagnosis) - 12/19/19 Attending Physician: Eugene Aquino MD Allergies, Adverse [...] Not Give n Patient Refuses 1Result Comment: [id number] 2Result Note: [facility] hel no Medications AirDuo RespiClick 232 mcg-14 mcg/inh inhalation powder 1, inhalation, Inhalation, 2 times a day, rinse mouth and throat after use, # 1 each, Refills 11, Tot. Refills 11, Maintenance, 12/01/19 14:31:00 EDT, Powder, Route to Pharmacy Electronically, [id number], [facility]/pharmacy #[id number],... Start Date: 12/01/19 Status: Ordered cloNIDine 0.2 [...] 12/18/19 14:53:00 EDT, Route to Pharmacy Electronically, [facility]/pharmacy #[id number], 180, cm, 11/29/19 16:16:00 EDT, Height, 136.2, kg, 0... Start Date: 12/18/19 Status: Ordered Methadone = 47 mg, By Mouth, Daily, [place], 0 Refills, Maintenance, 09/12/19 15:39:00 EST, Partial [...] 12:36:00 EDT, Aerosol, Route to Pharmacy Electronically, [id number], [facility]/pharmacy #[id number], 181, cm, 11/17/19 14:07:00 [...] Service Informant Bilateral leg edema Discharge Diagnosis 12/19/19 Social History Social History Type Response Tobacco Use: Vape. Sex
--- OUTSIDE RECORDS SUMMARY | 2023-05-26 16:17 | XMS_ITS | Continuity of Care Document ---
Author Name Unknown Organization [facility] Address [address] [place] [address]- Care Team Providers Care Airflight Attendants Supervisor Name Role Phone Eugene Aquino MD Primary Care Physician [phone] Encounter [facility] Date(s): 01/09/20 - 03/21/20 [facility] [address] [place] [address]- [facility] Attending Physician: Ludwig Almeida MD Admitting Physician: Ludwig Almeida MD Referring Physician: Eugene Aquino MD Allergies, Adverse [...] Not Give n Patient Refuses 1Result Comment: [id number] 2Result Note: states [place] no Medications AirDuo RespiClick 232 mcg-14 mcg/inh inhalation powder 1, inhalation, Inhalation, 2 times a day, rinse mouth and throat after use, # 1 each, Refills 11, Tot. Refills 11, Maintenance, 12/01/19 14:31:00 EDT, Powder, Route to Pharmacy Electronically, [id number], [facility]/pharmacy #[id number],... Start Date: 12/01/19 Status: Ordered Compression [...] 02/27/20 17:16:00 EDT, Route to Pharmacy Electronically, [facility]/pharmacy #[id number], 180, cm,02/27/20 16:52:00 EDT, Height, 147.8, kg, 02/27/20... Start Date: 02/27/20 Status: Ordered Methadone = 20 mg, By Mouth, Daily, [place], 0 Refills, Maintenance, 09/12/19 15:39:00 EST, Partial [...] 12:36:00 EDT, Aerosol, Route to Pharmacy Electronically, [id number], [facility]/pharmacy #[id number], 181, cm, 11/17/19 [...]
--- OUTSIDE RECORDS SUMMARY | 2023-05-26 16:17 | XMS_ITS | Continuity of Care Document ---
Author Name Unknown Organization [facility] Address [address] [place] [address]- Care Team Providers Care Machine Bender Name Role Phone Eugene Aquino MD Primary Care Physician Encounter [place] Date(s): 02/27/20 - 03/28/20 [facility] [address] [place] [address]- [facility] Attending Physician: David Martínez Admitting Physician: AdmDavid blanco Referring Physician: Admtr ArDesire Allergies, Adverse Reactions, Alerts Substance Reaction Severity [...] Not Give n Patient Refuses 1Result Comment: [id number] 2Result Note: states hell no Medications AirDuo RespiClick 232 mcg-14 mcg/inh inhalation powder 1, inhalation, Inhalation, 2 times a day, rinse mouth and throat after use, # 1 each, Refills 11, Tot. Refills 11, Maintenance, 12/01/19 14:31:00 EDT, Powder, Route to Pharmacy Electronically, [id number], [facility]/pharmacy #[id number],... Start Date: 12/01/19 Status: Ordered Compression Stockings [...] 02/27/20 17:16:00 EDT, Route to Pharmacy Electronically, [facility]/pharmacy #[id number], 180, cm,02/27/20 16:52:00 EDT, Height, 147.8, kg, 02/27/20... Start Date: 02/27/20 Status: Ordered Methadone = 20 mg, By Mouth, Daily, [place], 0 Refills, Maintenance, 09/12/19 15:39:00 EST, Partial [...] 12:36:00 EDT, Aerosol, Route to Pharmacy Electronically, [id number], [facility]/pharmacy #[id number], 181, cm, 11/17/19 14:07:00 EST, [...]
--- OUTSIDE RECORDS SUMMARY | 2023-05-26 16:17 | XMS_ITS | Continuity of Care Document ---
Author Name Unknown Organization [facility] Bravo lt Address [address] [place] [address]- Care Team Providers Care Upper Trimmer Name Role Phone Eugene Aquino MD Primary Care Physician Encounter [facility] Date(s): 03/28/20 - 04/27/20 [facility] Adult [address] [place] [address]- [facility] Allergies, Adverse Reactions, Alerts Substance Reaction [...] Not Give n Patient Refuses 1Result Comment: [id number] 2Result Note: states [place] no Medications AirDuo RespiClick 232 mcg-14 mcg/inh inhalation powder 1, inhalation, Inhalation, 2 times a day, rinse mouth and throat after use, # 1 each, Refills 11, Tot. Refills 11, Maintenance, 12/01/19 14:31:00 EDT, Powder, Route to Pharmacy Electronically, [id number], [facility]/pharmacy #[id number],... Start Date: 12/01/19 Status: Ordered amlodipine-benazepril 5 mg-10 mg oral capsule 1 capsule, By Mouth, Daily, # 30 capsule, 1 Refills, Maintenance, 04/01/20 16:45:00 EDT, Capsule, [facility]/pharmacy #[id number], 1 capsule By [...] 02/27/20 17:16:00 EDT, Route to Pharmacy Electronically, [facility]/pharmacy #[id number], 180, cm,02/27/20 16:52:00 EDT, Height, 147.8, kg, 02/27/20... Start Date: 02/27/20 Status: Ordered Methadone = 20 mg, By Mouth, Daily, [place], 0 Refills, Maintenance, 09/12/19 15:39:00 EST, Partial [...] 12:36:00 EDT, Aerosol, Route to Pharmacy Electronically, [id number], [facility]acy #[id number], 181, cm, 11/17/19 14:07:00 EST, [...]
--- OUTSIDE RECORDS SUMMARY | 2023-05-26 16:17 | XMS_ITS | Continuity of Care Document ---
Author Name Unknown Organization [facility] Address [address] [place] [address]- Care Team Providers Care Crystal Evaluator Name Role Phone Kenia EVANS, Eugene Villafuerte Primary Care Physician Encounter [facility] Date(s): 02/26/20 - 03/04/20 [facility] Adult [address] [place] [address]- [facility] Encounter Diagnosis Bilateral leg edema(Discharge Diagnosis) - 02/26/20 Morbid obesity(Discharge Diagnosis) - 02/26/20 Attending Physician: Tricia FONTANEZ, Neyda Gross Allergies, [...] Not Give n Patient Refuses 1Result Comment: [id number] 2Result Note: states hell no Medications AirDuo RespiClick 232 mcg-14 mcg/inh inhalation powder 1, inhalation, Inhalation, 2 times a day, rinse mouth and throat after use, # 1 each, Refills 11, Tot. Refills 11, Maintenance, 12/01/19 14:31:00 EDT, Powder, Route to Pharmacy Electronically, [id number], [facility]/pharmacy #[id number],... Start Date: 12/01/19 Status: Ordered [...] 02/27/20 17:16:00 EDT, Route to Pharmacy Electronically, [facility]/pharmacy #[id number], 180, cm,02/27/20 16:52:00 EDT, Height, 147.8, kg, 02/27/20... Start Date: 02/27/20 Status: Ordered Methadone = 20 mg, By Mouth, Daily, [place], 0 Refills, Maintenance, 09/12/19 15:39:00 EST, Partial [...] 12:36:00 EDT, Aerosol, Route to Pharmacy Electronically, [id number], [facility]/pharmacy #[id number], 181, cm, 11/17/19 14:07:00 EST, [...] Service Informant Bilateral leg edema Discharge Diagnosis 02/26/20 Morbid obesity Discharge Diagnosis 02/26/20 Social History Social History Type Response Smoking Status 5-9 cigarettes (betw een 1/4 to 1/2 pack)/day in last 30 days entered on: 02/27/20 Sex
--- OUTSIDE RECORDS SUMMARY | 2023-05-26 16:17 | XMS_ITS | Continuity of Care Document ---
Author Name Unknown Organization [facility] Address [address] [place] [address]- Care Team Providers Care Metal Or Wood Blocker Name Role Phone Eugene Aquino MD Primary Care Physician Encounter [facility] Date(s): 06/20/20 - 07/20/20 [facility] Adult [address] [place] [address]- [facility] Allergies, Adverse Reactions, Alerts Substance Reaction Severity [...] Not Give n Patient Refuses 1Result Comment: [id number] 2Result Note: states hell no Medications AirDuo RespiClick 232 mcg-14 mcg/inh inhalation powder 1, inhalation, Inhalation, 2 times a day, rinse mouth and throat after use, # 1 each, Refills 11, Tot. Refills 11, Maintenance, 12/01/19 14:31:00 EDT, Powder, Route to Pharmacy Electronically, [id number], [facility]/pharmacy #[id number],... Start Date: 12/01/19 Status: Ordered amlodipine-benazepril 5 mg-10 mg oral capsule 1 capsule, By Mouth, Daily, # 30 capsule, 2 Refills, Maintenance, 06/04/20 14:52:00 EDT, Capsule, [facility]/pharmacy #[id number], 1 capsule By [...] 02/27/20 17:16:00 EDT, Route to Pharmacy Electronically, [facility]/pharmacy #[id number], 180, cm,02/27/20 16:52:00 EDT, Height, 147.8, kg, 02/27/20... Start Date: 02/27/20 Status: Ordered Methadone = 20 mg, By Mouth, Daily, [place], 0 Refills, Maintenance, 09/12/19 15:39:00 EST, Partial [...] 12:36:00 EDT, Aerosol, Route to Pharmacy Electronically, [id number], [id number], 181, cm, 11/17/19 14:07:00 EST, [...]
--- OUTSIDE RECORDS SUMMARY | 2023-05-26 16:17 | XMS_ITS | Continuity of Care Document ---
Author Name Unknown Organization [facility] Address [address] [place] [address]- Care Team Providers Care Power Switchboard Operator Name Role Phone Kenia EVANS, Eugene Villafuerte Primary Care Physician Encounter [facility] Date(s): 04/01/20 - 04/08/20 [facility] Adult [address] [place] [address]- [facility] Encounter Diagnosis Bilateral leg edema(Discharge Diagnosis) - 03/26/20 Morbid obesity(Discharge Diagnosis) - 03/26/20 HTN (hypertension)(Discharge Diagnosis) - 03/26/20 Attending Physician: Tricia FONTANEZ, Neyda Gross Allergies, [...] Not Give n Patient Refuses 1Result Comment: [id number] 2Result Note: states hell no Medications AirDuo RespiClick 232 mcg-14 mcg/inh inhalation powder 1, inhalation, Inhalation, 2 times a day, rinse mouth and throat after use, # 1 each, Refills 11, Tot. Refills 11, Maintenance, 12/01/19 14:31:00 EDT, Powder, Route to Pharmacy Electronically, [id number], [facility]/pharmacy #[id number],... Start Date: 12/01/19 Status: Ordered amlodipine-benazepril 5 mg-10 mg oral capsule 1 capsule, By Mouth, Daily, # 30 capsule, 1 Refills, Maintenance, 04/01/20 16:45:00 EDT, Capsule, [facility]/pharmacy #[id number], 1 capsule By Mouth [...] 17:16:00 EDT, Route to Pharmacy Electronically, [facility]/pharmacy #207, 180, cm,02/27/20 16:52:00 EDT, Height, 147.8, kg, 02/27/20... Start Date: 02/27/20 Status: Ordered Methadone = 20 mg, By Mouth, Daily, [place], 0 Refills, Maintenance, 09/12/19 15:39:00 EST, Partial [...] 12:36:00 EDT, Aerosol, Route to Pharmacy Electronically, [id number], [facility]/pharmacy #[id number], 181, cm, 11/17/19 14:07:00 EST, Heigh... Start Date: 11/29/19 Status: Ordered Ventolin HFA 108 mcg/inh inhalation aerosol with adapter See Instructions, PRN for wheezing, 2 puffs Inhalation Every 4 hours-6hours, # 18 Gm, 5 Refills, Maintenance, 11/13/19 15:16:00 EST, Aerosol, [facility]/pharmacy #[id number], 2 puffs Inhalation Every [...] Service Informant Bilateral leg edema Discharge Diagnosis 03/26/20 Morbid obesity Discharge Diagnosis 03/26/20 HTN (hypertension) Discharge Diagnosis 03/26/20 Vital Signs Most recent to oldest [Reference Range]: 1 Height 180 cm (04/01/20 3:06 PM) Social History Social History Type Response Smoking Status 5-9 cigarettes (betw een 1/4 to 1/2 pack)/day in last 30 days entered on: 02/27/20 Sex
--- OUTSIDE RECORDS SUMMARY | 2023-05-26 16:17 | XMS_ITS | Continuity of Care Document ---
Author Name Unknown Organization [facility] Address [address] [place] [address]- Care Team Providers Care Technologist Infectious Disease Name Role Phone Eugene Aquino MD Primary Care Physician Encounter [facility] Date(s): 12/20/19 - 12/27/19 [facility] Adult [address] [place] [address]- [facility] Encounter Diagnosis Leg edema(Discharge Diagnosis) - 12/20/19 Attending Physician: Eugene Aquino MD Allergies, Adverse [...] Not Give n Patient Refuses 1Result Comment: [id number] 2Result Note: states hel no Medications AirDuo RespiClick 232 mcg-14 mcg/inh inhalation powder 1, inhalation, Inhalation, 2 times a day, rinse mouth and throat after use, # 1 each, Refills 11, Tot. Refills 11, Maintenance, 12/01/19 14:31:00 EDT, Powder, Route to Pharmacy Electronically, [id number], [facility]/pharmacy #[id number],... Start Date: 12/01/19 Status: Ordered cloNIDine 0.2 [...] 12/18/19 14:53:00 EDT, Route to Pharmacy Electronically, [facility]/pharmacy #[id number], 180, cm, 11/29/19 16:16:00 EDT, Height, 136.2, kg, 0... Start Date: 12/18/19 Status: Ordered Methadone = 47 mg, By Mouth, Daily, [place], 0 Refills, Maintenance, 09/12/19 15:39:00 EST, Partial [...] 12:36:00 EDT, Aerosol, Route to Pharmacy Electronically, [id number], [facility]/pharmacy #[id number], 181, cm, 11/17/19 14:07:00 EST, Heigh... [...] Diagnosis Diagnosis Type Effective Dates Health Status Clini kimberli Service Informant Leg edema Discharge Diagnosis 12/20/19 Social History Social History Type Response Tobacco Use: Vape. Sex
--- OUTSIDE RECORDS SUMMARY | 2023-05-26 16:17 | XMS_ITS | Continuity of Care Document ---
Author Name Unknown Organization [facility] Address [address] [place] [address]- Care Team Providers Care Rental Coordinator Name Role Phone Kenia EVANS, Eugene Villafuerte Primary Care Physician Encounter [facility] Date(s): 02/27/20 - 03/05/20 [facility] Adult [address] [place] [address]- [facility] Encounter Diagnosis Bilateral leg edema(Discharge Diagnosis) - 02/27/20 Attending Physician: Evangelista Byers MD Allergies, Adverse Reactions, Alerts Substance Reaction [...] Not Give n Patient Refuses 1Result Comment: [id number] 2Result Note: states hell no Medications AirDuo RespiClick 232 mcg-14 mcg/inh inhalation powder 1, inhalation, Inhalation, 2 times a day, rinse mouth and throat after use, # 1 each, Refills 11, Tot. Refills 11, Maintenance, 12/01/19 14:31:00 EDT, Powder, Route to Pharmacy Electronically, [id number], [facility]/pharmacy #[id number],... Start Date: 12/01/19 Status: Ordered Compression Stockings [...] Methadone = 20 mg, By Mouth, Daily, [place], 0 Refills, Maintenance, 09/12/19 15:39:00 EST, Partial [...] 12:36:00 EDT, Aerosol, Route to Pharmacy Electronically, [id number], [facility]/pharmacy #[id number], 181, cm, 11/17/19 [...] Service Informant Bilateral leg edema Discharge Diagnosis 02/27/20 Social History Social History Type Response Smoking Status 5-9 cigarettes (betw een 1/4 to 1/2 pack)/day in last 30 days entered on: 02/27/20 Sex
--- OUTSIDE RECORDS SUMMARY | 2023-05-26 16:17 | XMS_ITS | Continuity of Care Document ---
Author Name Unknown Organization [facility] B[facility] Address [address] [place] [address]- Care Team Providers Care Diesel Locomotive Firer/Fireman Name Role Phone Eugene Aquino MD Primary Care Physician [phone] Encounter [facility] Date(s): 04/18/20 - 05/18/20 [facility] Adult [address] [place] [address]- [facility] Allergies, Adverse Reactions, Alerts Substance Reaction [...] Not Give n Patient Refuses 1Result Comment: [id number] 2Result Note: states hell no Medications AirDuo RespiClick 232 mcg-14 mcg/inh inhalation powder 1, inhalation, Inhalation, 2 times a day, rinse mouth and throat after use, # 1 each, Refills 11, Tot. Refills 11, Maintenance, 12/01/19 14:31:00 EDT, Powder, Route to Pharmacy Electronically, [id number], [facility]/pharmacy #[id number],... Start Date: 12/01/19 Status: Ordered amlodipine-benazepril 5 mg-10 mg oral capsule 1 capsule, By Mouth, Daily, # 30 capsule, 1 Refills, Maintenance, 04/01/20 16:45:00 EDT, Capsule, [facility]/pharmacy #[id number], 1 capsule By Mouth [...] 02/27/20 17:16:00 EDT, Route to Pharmacy Electronically, [facility]/pharmacy #[id number], 180, cm,02/27/20 16:52:00 EDT, Height, 147.8, kg, 02/27/20... Start Date: 02/27/20 Status: Ordered Methadone = 20 mg, By Mouth, Daily, [place], 0 Refills, Maintenance, 09/12/19 15:39:00 EST, Partial [...] 12:36:00 EDT, Aerosol, Route to Pharmacy Electronically, [id number], [id number], 181, cm, 11/17/19 14:07:00 EST, [...]
--- OUTSIDE RECORDS SUMMARY | 2023-05-26 16:17 | XMS_ITS | Continuity of Care Document ---
Author Name Unknown Organization [facility] Address [address] [place] [address]- Care Team Providers Care Adjunct Lecturer Name Role Phone Kenia EVANS, Eugene Villafuerte Primary Care Physician [phone] Encounter [place] Date(s): 03/19/20 - 04/18/20 [facility] [address] [place] [address]- [facility] Attending Physician: David Martínez Admitting Physician: David [...] Not Give n Patient Refuses 1Result Comment: [id number] 2Result Note: states hell no Medications AirDuo RespiClick 232 mcg-14 mcg/inh inhalation powder 1, inhalation, Inhalation, 2 times a day, rinse mouth and throat after use, # 1 each, Refills 11, Tot. Refills 11, Maintenance, 12/01/19 14:31:00 EDT, Powder, Route to Pharmacy Electronically, [id number], [facility]/pharmacy #[id number],... Start Date: 12/01/19 Status: Ordered amlodipine-benazepril 5 mg-10 mg oral capsule 1 capsule, By Mouth, Daily, # 30 capsule, 1 Refills, Maintenance, 04/01/20 16:45:00 EDT, Capsule, [facility]/pharmacy #[id number], 1 capsule By Mouth [...] 02/27/20 17:16:00 EDT, Route to Pharmacy Electronically, [facility]/pharmacy #[id number], 180, cm,02/27/20 16:52:00 EDT, Height, 147.8, kg, 02/27/20... Start Date: 02/27/20 Status: Ordered Methadone = 20 mg, By Mouth, Daily, [place], 0 Refills, Maintenance, 09/12/19 15:39:00 EST, Partial [...] 12:36:00 EDT, Aerosol, Route to Pharmacy Electronically, [id number], [facility]/pharmacy #[id number], 181, cm, 11/17/19 14:07:00 EST, Heigh... Start Date: 11/29/19 Status: Ordered Ventolin HFA 108 mcg/inh inhalation aerosol with adapter See Instructions, PRN for wheezing, 2 puffs Inhalation Every 4 hours-6hours, # 18 Gm, 5 Refills, Maintenance, 11/13/19 15:16:00 EST, Aerosol, [facility]/pharmacy #[id number], 2 puffs Inhalation Every 4 hours-6hours, [...]
--- OUTSIDE RECORDS SUMMARY | 2023-05-26 16:17 | XMS_ITS | Continuity of Care Document ---
Author Name Unknown Organization [facility] Address [address] [place] [address]- Care Team Providers Care Mergers And Acquisitions Associate Name Role Phone Eugene Aquino MD Primary Care Physician En[place] [facility] Date(s): 01/03/20 - 01/13/20 [facility] Adult [address] [place] [address]- [facility] Attending Physician: Admtr, Ar8 Admitting Physician: Admtr, Ar8 Referring Physician: Admtr, Ar8 Allergies, Adverse Reactions, [...] Not Give n Patient Refuses 1Result Comment: [id number] 2Result Note: states hell no Medications AirDuo RespiClick 232 mcg-14 mcg/inh inhalation powder 1, inhalation, Inhalation, 2 times a day, rinse mouth and throat after use, # 1 each, Refills 11, Tot. Refills 11, Maintenance, 12/01/19 14:31:00 EDT, Powder, Route to Pharmacy Electronically, [id number], [facility]/pharmacy #[id number],... Start Date: 12/01/19 Status: Ordered cloNIDine 0.2 [...] 01/08/20 12:10:00 EDT, Route to Pharmacy Electronically, [facility]/pharmacy #[id number], 180, cm, 11/29/19 16:16:00 EDT, Height, 136.2, kg, 0... Start Date: 01/08/20 Status: Ordered Methadone = 47 mg, By Mouth, Daily, [place], 0 Refills, Maintenance, 09/12/19 15:39:00 EST, Partial [...] 12:36:00 EDT, Aerosol, Route to Pharmacy Electronically, [id number], [facility]/pharmacy #[id number], 181, cm, 11/17/19 14:07:00 [...]
--- OUTSIDE RECORDS SUMMARY | 2023-05-26 16:17 | XMS_ITS | Continuity of Care Document ---
Author Name Unknown Organization [facility] Grant Bravo lt Address [address] [place] [address]- Care Team Providers Care Supply Cataloguer Name Role Phone Eugene Aquino MD Primary Care Physician [place] [facility] [place](s): 11/17/19 - 11/24/19 [facility] Adult [address] [place] [address]- [facility] Attending Physician: Eugene Aquino MD [...] Not Give n Patient Refuses 1Result Comment: [id number] 2Result Note: states hel no Medications Abilify 10 mg oral tablet 10 mg, 1, tablet, By Mouth, Daily, Refills 0, Maintenance, 05/26/19 10:04:39 EDT Start Date: 05/26/19 Status: Ordered Breo Ellipta 200 mcg-25 mcg/inh inhalation powder 1 puffs, Inhalation, Daily, # 30 each, 11 Refills, Maintenance, 11/17/19 14:15:00 EST, Powder, [id number], 1 puffs Inhalation Daily, 181, cm, 11/17/19 14:07:00 EST, Height, 100, kg, 09/12/19 15:37:00 EST, Dry Weight Start Date: 11/17/19 Status: Ordered cloNIDine 0.2 mg oral tablet [...] Methadone = 47 mg, By Mouth, Daily, [place], 0 Refills, Maintenance, 09/12/19 15:39:00 EST, Partial fill upon patient request Start Date: 09/12/19 Status: Ordered mirtazapine 30 mg oral tablet 1 tablet = 30 mg, By Mouth, Daily at bedtime, # 30 tablet, 0 Refills, Maintenance, 05/26/19 10:13:07 EDT, Tablet Start Date: 05/26/19 Status: Ordered predniSONE 20 mg oral tablet See Instructions, 3 tablet By Mouth Daily for 7 days then 2 tablets daily for 7 days then 1 tablet for 7 days then stop, # 42 tablet, 0 Refills, Maintenance, 11/17/19 14:16:00 EST, Tablet, [facility]/pharmacy #[id number], 181, cm, 11/17/19 14:07:00 EST, Height, 10... Start Date: 11/17/19 Status: Ordered Risperidone Bedtime, 0 Refills, Maintenance, [...] Refills, Maintenance, 11/13/19 15:16:00 EST, Aerosol, [facility]/pharmacy #[id number], 2 puffs Inhalation Every 4 hours-6hours, [...] recent to oldest [Reference Range]: 1 Height 181 cm (11/17/19 2:06 PM) Weight 133.6 kg (11/17/19 2:06 PM) Oxygen Saturation [94-100 %] 98 % (11/17/19 2:06 PM) Pulse Rate [55-90 bpm] 70 bpm (11/17/19 2:06 PM) Body Mass Index [18.5-24.99] 40.78 *>HHI* (11/17/19 2:06 PM) Blood Pressure [90-138/55-84 mm Hg] 122/ 72mm Hg (11/17/19 2:06 PM) Temperature [96.8-100.4 DegF] 98.1 DegF (11/17/19 2:06 PM) Mode of Delivery (Oxygen) Room air (11/17/19 2:06 PM) Blood pressure sites Arm, left (11/17/19 2:06 PM) Temperature Route Oral (11/17/19 2:06 PM) Weight Obtained Via Standing scale (11/17/19 2:06 PM) Social History Social History Type Response Tobacco Use: Vape. Sex
--- OUTSIDE RECORDS SUMMARY | 2023-05-26 16:17 | XMS_ITS | Continuity of Care Document ---
Author Name Unknown Organization [facility] Bravo lt Address [address] [place] [address]- Care Team Providers Care Home Health Nurse Licensed Practical Name Role Phone Eugene Aquino MD Primary Care Physician Encounter [facility] [place] Date(s): 04/01/20 - 05/01/20 [facility] Adult [address] [place] [address]- [facility] Attending Physician: David Martínez Admitting Physician: [...] Not Give n Patient Refuses 1Result Comment: [id number] 2Result Note: states hell no Medications AirDuo RespiClick 232 mcg-14 mcg/inh inhalation powder 1, inhalation, Inhalation, 2 times a day, rinse mouth and throat after use, # 1 each, Refills 11, Tot. Refills 11, Maintenance, 12/01/19 14:31:00 EDT, Powder, Route to Pharmacy Electronically, [id number], [facility]/pharmacy #[id number],... Start Date: 12/01/19 Status: Ordered amlodipine-benazepril 5 mg-10 mg oral capsule 1 capsule, By Mouth, Daily, # 30 capsule, 1 Refills, Maintenance, 04/01/20 16:45:00 EDT, Capsule, [facility]/pharmacy #[id number], 1 capsule By Mouth [...] 02/27/20 17:16:00 EDT, Route to Pharmacy Electronically, [facility]/pharmacy #[id number], 180, cm,02/27/20 16:52:00 EDT, Height, 147.8, kg, 02/27/20... Start Date: 02/27/20 Status: Ordered Methadone = 20 mg, By Mouth, Daily, [place], 0 Refills, Maintenance, 09/12/19 15:39:00 EST, Partial [...] 12:36:00 EDT, Aerosol, Route to Pharmacy Electronically, [id number], [facility]/pharmacy #[id number], 181, cm, 11/17/19 14:07:00 EST, Heigh... Start Date: 11/29/19 Status: Ordered Ventolin HFA 108 mcg/inh inhalation aerosol with adapter See Instructions, PRN for wheezing, 2 puffs Inhalation Every 4 hours-6hours, # 18 Gm, 5 Refills, Maintenance, 11/13/19 15:16:00 EST, Aerosol, [facility]/pharmacy #[id number], 2 puffs Inhalation Every [...]
--- OUTSIDE RECORDS SUMMARY | 2023-05-26 16:17 | XMS_ITS | Continuity of Care Document ---
Author Name Unknown Organization [facility] Address [address] [address]- Care Team Providers Care Party Host/Hostess Name Role Phone Kenia EVANS, Eugene Villafuerte Primary Care Physician [phone] Encounter [facility] [place] Date(s): 04/02/20 - 04/09/20 [facility] [address] [address]- [place] Attending Physician: Ludwig Almeida MD Admitting Physician: [...] Not Give n Patient Refuses 1Result Comment: [id number] 2Result Note: states hell no Medications AirDuo RespiClick 232 mcg-14 mcg/inh inhalation powder 1, inhalation, Inhalation, 2 times a day, rinse mouth and throat after use, # 1 each, Refills 11, Tot. Refills 11, Maintenance, 12/01/19 14:31:00 EDT, Powder, Route to Pharmacy Electronically, [id number], [facility]/pharmacy #[id number],... Start Date: 12/01/19 Status: Ordered amlodipine-benazepril 5 mg-10 mg oral capsule 1 capsule, By Mouth, Daily, # 30 capsule, 1 Refills, Maintenance, 04/01/20 16:45:00 EDT, Capsule, [facility]/pharmacy #[id number], 1 capsule By Mouth Daily, 180, [...] 02/27/20 17:16:00 EDT, [id number], 180, cm,02/27/20 16:52:00 EDT, Height, 147.8, kg, 02/27/20... Start Date: 02/27/20 Status: Ordered Methadone = 20 mg, By Mouth, Daily, [place], 0 Refills, Maintenance, 09/12/19 15:39:00 EST, Partial [...] 12:36:00 EDT, Aerosol, Route to Pharmacy Electronically, [id number], [id number], 181, cm, 11/17/19 14:07:00 EST, Heigh... Start Date: 11/29/19 Status: Ordered Ventolin HFA 108 mcg/inh inhalation aerosol with adapter See Instructions, PRN for wheezing, 2 puffs Inhalation Every 4 hours-6hours, # 18 Gm, 5 Refills, Maintenance, 11/13/19 15:16:00 EST, Aerosol, [facility]/pharmacy #[id number], 2 puffs Inhalation Every 4 hours-6hours, [...]
--- OUTSIDE RECORDS SUMMARY | 2023-05-26 16:17 | XMS_ITS | Continuity of Care Document ---
Author Name Unknown Organization [facility] Bravo lt Address [address] [place] [address]- Care Team Providers Care Metal Inspector Name Role Phone Eugene Aquino MD Primary Care Physician [phone] [place] [facility] [place](s): 02/23/20 - 03/01/20 [facility] Adult [address] [place] [address] Encounter Diagnosis Epilepsy - generlized seizures, last at age 4(Discharge Diagnosis) - 02/23/20 Severe mood disorder with psychotic features(Discharge Diagnosis) - 02/23/20 Bilateral leg edema(Discharge Diagnosis) - 02/23/20 Attending Physician: Neyda Clarke NP Referring Physician: Eugene Aquino MD Allergies, Adverse [...] Not Give n Patient Refuses 1Result Comment: [id number] 2Result Note: states hell no Medications AirDuo RespiClick 232 mcg-14 mcg/inh inhalation powder 1, inhalation, Inhalation, 2 times a day, rinse mouth and throat after use, # 1 each, Refills 11, Tot. Refills 11, Maintenance, 12/01/19 14:31:00 EDT, Powder, Route to Pharmacy Electronically, [id number], [facility]/pharmacy #[id number],... Start Date: 12/01/19 Status: [...] 02/27/20 17:16:00 EDT, Route to Pharmacy Electronically, [facility]/pharmacy #207, 180, cm,02/27/20 16:52:00 EDT, Height, 147.8, kg, 02/27/20... Start Date: 02/27/20 Status: Ordered Methadone = 20 mg, By Mouth, Daily, [place], 0 Refills, Maintenance, 09/12/19 15:39:00 EST, Partial [...] 12:36:00 EDT, Aerosol, Route to Pharmacy Electronically, [id number], [facility]/pharmacy #[id number], 181, cm, 11/17/19 14:07:00 EST, [place]... Start Date: 11/29/19 Status: Ordered Ventolin HFA [...] Diagnosis Diagnosis Type Effective Dates Health Status Clinical Service Informant Epilepsy - generlized seizures, last at age 4 Discharge Diagnosis 02/23/20 Severe mood disorder with psychotic features Discharge Diagnosis 02/23/20 Bilateral leg edema Discharge Diagnosis 02/23/20 Vital Signs Most recent to oldest [Reference Range]: 1 Height 180 cm (02/23/20 2:07 PM) Social History Social History Type Response Smoking Status 5-9 cigarettes (betw een 1/4 to 1/2 pack)/day in last 30 days entered on: 02/27/20 Sex
--- OUTSIDE RECORDS SUMMARY | 2023-05-26 16:17 | XMS_ITS | Continuity of Care Document ---
Author Name Unknown Organization [facility] Grant Bravo lt Address [address] [place] [address]- Care Team Providers Care Academic Department Chair Name Role Phone Eugene Aquino MD Primary Care Physician [place] [facility] [place]s): 09/28/19 - 10/05/19 [facility] Adult [address] [place] [address]- [place] Encounter Diagnosis Bronchospasm(Discharge Diagnosis) - 09/28/19 Attending Physician: Eugene Aquino MD Allergies, Adverse [...] Not Give n Patient Refuses 1Result Comment: [id number] 2Result Note: [facility] no Medications Abilify 10 mg oral tablet [...] Methadone = 47 mg, By Mouth, Daily, [place], 0 Refills, Maintenance, 09/12/19 15:39:00 EST, Partial [...] Dates Health Status Cl inical Service Informant Bronchospasm Discharge Diagnosis 09/28/19 Vital Signs Most recent to oldest [Reference Range]: 1 Height 181 cm (09/28/19 10:11 AM) Weight 130.3 kg (09/28/19 10:11 AM) Oxygen Saturation [94-100 %] 98 % (09/28/19 10:11 AM) Pulse Rate [55-90 bpm] 88 bpm (09/28/19 10:11 AM) Body Mass Index [18.5-24.99] 39.77 *>HHI* (09/28/19 10:11 AM) Blood Pressure [90-138/55-84 mm Hg] 146/ 80mm Hg *H* (09/28/19 10:11 AM) Temperature [96.8-100.4 DegF] 97.6 DegF (09/28/19 10:11 AM) Mode of Delivery (Oxygen) Room air (09/28/19 10:11 AM) Blood pressure sites Arm, left (09/28/19 10:11 AM) Temperature Route Oral (09/28/19 10:11 AM) Weight Obtained Via Standing scale (09/28/19 10:11 AM) Social History Social History Type Response Tobacco Use: Vape. Sex
--- OUTSIDE RECORDS SUMMARY | 2023-05-26 16:17 | XMS_ITS | Continuity of Care Document ---
Author Name Unknown Organization [facility] ter Address [address] [place] [address]- Care Team Providers Care Manager Of Loss Prevention Operations Name Role Phone Eugene Aquino MD Primary Care Physician Encounter [facility] [place] Date(s): 12/26/19 - 01/26/[address] [address]- [facility] Attending Physician: Eugene Aquino MD Admitting Physician: Eugene Aquino MD Referring Physician: Eugene Aquino MD Allergies, [...] Not Give n Patient Refuses 1Result Comment: [id number] 2Result Note: [facility] hel no Medications AirDuo RespiClick 232 mcg-14 mcg/inh inhalation powder 1, inhalation, Inhalation, 2 times a day, rinse mouth and throat after use, # 1 each, Refills 11, Tot. Refills 11, Maintenance, 12/01/19 14:31:00 EDT, Powder, Route to Pharmacy Electronically, [id number], [facility]/pharmacy #[id number],... Start Date: 12/01/19 Status: Ordered cloNIDine 0.2 [...] 01/08/20 12:10:00 EDT, Route to Pharmacy Electronically, [facility]/pharmacy #[id number], 180, cm, 11/29/19 16:16:00 EDT, Height, 136.2, kg, 0... Start Date: 01/08/20 Status: Ordered Methadone = 47 mg, By Mouth, Daily, [place], 0 Refills, Maintenance, 09/12/19 15:39:00 EST, Partial [...] 12:36:00 EDT, Aerosol, Route to Pharmacy Electronically, [id number], [facility]/pharmacy #[id number], 181, cm, 11/17/19 14:07:00 EST, Heigh... [...]
--- OUTSIDE RECORDS SUMMARY | 2023-05-26 16:17 | XMS_ITS | Continuity of Care Document ---
Author Name Unknown Organization [facility] Bravo lt Address [address] [place] [address]- Care Team Providers Care Research And Development Researcher Name Role Phone Eugene Aquino MD Primary Care Physician En[place] [facility] [place] Date(s): 11/29/19 - 12/09/19 [facility] Adult [address] [place] [address]- [facility] Attending Physician: Admtr, Ar8 Admitting Physician: Admtr Ar8 Referring Physician: Admtr, Ar8 Allergies, Adverse [...] Not Give n Patient Refuses 1Result Comment: [id number] 2Result Note: states hel no Medications Abilify 10 mg oral tablet 10 mg, 1, tablet, By Mouth, Daily, Refills 0, Maintenance, 05/26/19 10:04:39 EDT Start Date: 05/26/19 Status: Ordered AirDuo RespiClick 232 mcg-14 mcg/inh inhalation powder 1, inhalation, Inhalation, 2 times a day, rinse mouth and throat after use, # 1 each, Refills 11, Tot. Refills 11, Maintenance, 12/01/19 14:31:00 EDT, Powder, Route to Pharmacy Electronically, [id number], [facility]/pharmacy #[id number],... Start Date: 12/01/19 Status: Ordered cloNIDine 0.2 mg oral tablet 0.2 mg, 1, tablet, By Mouth, 2 times a day, Refills 0, Maintenance, 05/26/19 10:10:20 EDT Start Date: 05/26/19 Status: Ordered Methadone = 47 mg, By Mouth, Daily, [place], 0 Refills, Maintenance, 09/12/19 15:39:00 EST, Partial [...] Refills, Maintenance, 11/17/19 14:16:00 EST, Tablet, [facility]/pharmacy #[id number], 181, cm, 11/17/19 14:07:00 EST, Height, [...] 10:04:57 EDT Start Date: 05/26/19 Status: Ordered Symbicort 160mcg/4.5mcg Inhaler 1, puffs, Inhalation, 2 times a day, # 60 each, Refills 11, Tot. Refills 11, Maintenance, 11/29/19 12:36:00 EDT, Aerosol, Route to Pharmacy Electronically, [id number], [id number], 181, cm, 11/17/19 14:07:00 EST, [...]
[2023-05-26 16:55] VITALS: BP 144/86; PULSE 105; RESP 18; TEMP 36.3; O2SAT 97
[2023-05-26] MEDS: Rivaroxaban 10 MG TABLET PO (17:42)
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
[2023-05-26 19:21] VITALS: BMI 34.0
[2023-05-26] MEDS: Acetaminophen 325 MG TABLET 650 MG PO (20:44)
[2023-05-27] MEDS: traZODone HCL 50 MG TABLET PO (00:31)
[2023-05-27] MEDS: hydrOXYzine HCL 25 MG TABLET PO (00:31)
[2023-05-27 06:00] VITALS: BP 152/88; PULSE 107; RESP 18; TEMP 36.8; O2SAT 98
[2023-05-27] MEDS: Levothyroxine Sodium 50 MCG TABLET PO (06:39)
[2023-05-27] MEDS: Omeprazole 20 MG CAPSULE.DR PO (06:53)
[2023-05-27 07:00] VITALS: BMI 35.9
[2023-05-27] MEDS: Buprenorphine/Naloxone 2/0.5mg FILM 1 FILM SUBLINGUAL (08:11)
[2023-05-27] MEDS: chlorproMAZINE HCl 25 MG TABLET 50 MG PO ×3 (08:11→20:42)
[2023-05-27] MEDS: Lithium Carbonate 300 MG CAPSULE 900 MG PO (08:11)
[2023-05-27] MEDS: QUEtiapine Fumarate 300 MG TABLET PO (08:12)
[2023-05-27] MEDS: Furosemide 20 MG TABLET PO (08:12)
[2023-05-27] MEDS: Acetaminophen 325 MG TABLET 650 MG PO ×2 (08:12→14:52)
[2023-05-27] MEDS: clonazePAM 1 MG TABLET PO ×3 (08:12→20:42)
[2023-05-27] MEDS: metFORMIN HCl 500 MG TABLET PO (08:12)
[2023-05-27 11:00] VITALS: BP 122/82
[2023-05-27] MEDS: cloNIDine HCL 0.1 MG TABLET PO ×2 (11:03→14:53)
[2023-05-27 13:29] LABS: Alanine Aminotransferase 19 U/L (0-40); Albumin Level 3.6 g/dL (3.5-5.0); Alkaline Phosphatase 136 U/L (39-117); Anion Gap 10 (12-20); Aspartate Amino Transferase 17 U/L (5-37); Bilirubin Total 0.4 mg/dL (0.0-1.0); Blood Urea Nitrogen 15 mg/dL (9-16); Calcium 9.2 mg/dL (8.4-10.2); Carbon Dioxide 26 mmol/L (22-29); Chloride 106 mmol/L (96-108); Cholesterol 168 mg/dL (<200); Creatinine Clr Calc Pharmacy 117.8; Estimated Glomerular Filt Rate > 60; Glucose Random 125 mg/dL (60-115); HDL Cholesterol 50 mg/dL (>40); LDL Cholesterol Calculated 90 mg/dL (<100); Potassium 4.2 mmol/L (3.3-5.1); Sodium 138 mmol/L (135-145); Total Protein 6.7 g/dL (6.5-8.0); Triglycerides 142 mg/dL (<150)
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
[2023-05-27 13:45] LABS: Free T4 (Free Thyroxine) 0.84 ng/dL (0.71-1.85); Thyroid Stimulating Hormone 1.27 uIU/mL (0.32-4.0)
[2023-05-27 13:58] LABS: Folate 7.2 ng/mL (> or = 4.0); Vitamin B12 263 pg/mL (200-900)
[2023-05-27 14:37] LABS: Estimated Average Glucose 100 mg/dL; Hemoglobin A1c % 5.1 % (<6.0)
[2023-05-27] MEDS: Rivaroxaban 10 MG TABLET PO (16:09)
[2023-05-27] MEDS: Nicotine Polacrilex 2 MG GUM 4 MG BUCCAL (16:09)
[2023-05-27 19:50] VITALS: BP 126/76; PULSE 88; RESP 16; TEMP 36.2; O2SAT 97
[2023-05-27] MEDS: Lithium Carbonate ER 300 MG TABLET.ER 600 MG PO (20:41)
[2023-05-27] MEDS: cloNIDine HCL 0.2 MG TABLET PO (20:42)
[2023-05-28] MEDS: hydrOXYzine HCL 25 MG TABLET PO (01:36)
[2023-05-28] MEDS: traZODone HCL 50 MG TABLET PO ×2 (01:36→20:11)
[2023-05-28] MEDS: Levothyroxine Sodium 50 MCG TABLET PO (06:24)
[2023-05-28] MEDS: Omeprazole 20 MG CAPSULE.DR PO (07:04)
[2023-05-28 08:14] VITALS: BP 123/70; PULSE 73; RESP 16; TEMP 36.1; O2SAT 99
[2023-05-28] MEDS: metFORMIN HCl 500 MG TABLET PO (08:20)
[2023-05-28] MEDS: Lithium Carbonate 300 MG CAPSULE PO (08:20)
[2023-05-28] MEDS: QUEtiapine Fumarate 300 MG TABLET PO (08:20)
[2023-05-28] MEDS: Furosemide 20 MG TABLET PO (08:20)
[2023-05-28] MEDS: clonazePAM 1 MG TABLET PO ×3 (08:21→20:10)
[2023-05-28] MEDS: chlorproMAZINE HCl 25 MG TABLET 50 MG PO ×3 (08:21→20:11)
[2023-05-28] MEDS: cloNIDine HCL 0.1 MG TABLET PO ×2 (08:21→14:19)
[2023-05-28] MEDS: Buprenorphine/Naloxone 2/0.5mg FILM 1 FILM SUBLINGUAL (08:30)
[2023-05-28] MEDS: Acetaminophen 325 MG TABLET 650 MG PO (09:54)
[2023-05-28 14:16] VITALS: BP 127/77; PULSE 92; RESP 18; O2SAT 99
--- NOTE | 2023-05-28 14:39 | P.PNPSI_ITS ---
Subjective Subjective Date of Service: 05/28/23 Reason For Visit: Crisis Interim History: pinpoint pupils, appears slightly sedated. c/o nightmares, glad to be back on meds and feeling a bit better than yesterday. agreeable to increase HS clonidine to 0.3 mg for sedation/autonomic hyperarousal. per staff, not scoring on CIWA. [place] [id number], got atarax. Mental Status Exam Mental Status Exam Narrative: calm, cooperative. dressed in [facility]. disheveled. no PMA/PMR. speech nml rate, amount, loudness, tone, latency. mood better. no SI/SIBI/HI/AVH expressed. Diagnostics Vital Signs (24Hr): Vital Signs - 24 hr 05/27/23 19:50 05/28/23 08:14 05/28/23 14:16 Temperature 97.2 F 97 F Pulse Rate 88 73 92 Respiratory Rate 16 16 18 Blood Pressure 126/76 123/70 127/77 Pulse Oximetry 97 99 99 Oxygen Delivery Method Room Air Room Air Room Air BMI result Body Mass Index 35.9 Labs 05/25/23 16:29 05/27/23 12:42 Labs: Laboratory Results - last 48 hr 05/27/23 05/27/23 05/27/23 12:42 12:42 12:42 Sodium 138 Potassium 4.2 Chloride 106 Carbon Dioxide 26 Anion Gap 10 L BUN 15 Creatinine 1.03 Estim Creat Clear Calc 117.8 Estimated GFR > 60 Random Glucose 125 H Estimat Average Glucose 100 Hemoglobin A1c % 5.1 Calcium 9.2 Total Bilirubin 0.4 AST 17 ALT 19 Alkaline Phosphatase 136 H Total Protein 6.7 Albumin 3.6 Triglycerides Cancelled 142 Cholesterol Cancelled 168 LDL Cholesterol, Calc Cancelled HDL Cholesterol Vitamin B12 Folate TSH Free T4 05/27/23 05/27/23 05/27/23 12:42 12:42 12:42 Sodium Potassium Chloride Carbon Dioxide Anion Gap BUN Creatinine Estim Creat Clear Calc Estimated GFR Random Glucose Estimat Average Glucose Hemoglobin A1c % Calcium Total Bilirubin AST ALT Alkaline Phosphatase Total Protein Albumin Triglycerides Cholesterol LDL Cholesterol, Calc 90 HDL Cholesterol Cancelled 50 Vitamin B12 263 Folate 7.2 TSH Cancelled 1.27 Free T4 Cancelled 05/27/23 12:42 Sodium Potassium Chloride Carbon Dioxide Anion Gap BUN Creatinine Estim Creat Clear Calc Estimated GFR Random Glucose Estimat Average Glucose Hemoglobin A1c % Calcium Total Bilirubin AST ALT Alkaline Phosphatase Total Protein Albumin Triglycerides Cholesterol LDL Cholesterol, Calc HDL Cholesterol Vitamin B12 Folate TSH Free T4 0.84 Medications Medications Current Medications Acetaminophen (Acetaminophen 325 Mg Tablet) 650 mg PO Q6H PRN PRN Reason: Headache/Pain Mild Scale (1-3) Last Admin: 05/28/23 09:54 Dose: 650 mg Al Hydroxide/Mg Hydroxide (Magnesium Hydrox/Alum Hydrox 30 Ml Oral.Susp) 30 ml PO Q6H PRN PRN Reason: Heartburn/Nausea Albuterol Sulfate (Albuterol Sulfate 90 Mcg 8 Gm Inhaler) 2 puff INHALE Q4H PRN PRN Reason: Wheezing Buprenorphine/Naloxone (Buprenorphine/Naloxone 2/0.5mg Film) 1 film SUBLINGUAL DAILY [facility] Last Admin: 05/28/23 08:30 Dose: 1 film Chlorpromazine HCl (Chlorpromazine Hcl 25 Mg Tablet) 50 mg PO TID [facility] Last Admin: 05/28/23 14:19 Dose: 50 mg Clonazepam (Clonazepam 1 Mg Tablet) 1 mg PO TID [facility] Last Admin: 05/28/23 14:19 Dose: 1 mg Clonidine HCl (Clonidine Hcl 0.1 Mg Tablet) 0.1 mg PO BID@0900,1500 [facility]; Protocol Last Admin: 05/28/23 14:19 Dose: 0.1 mg Clonidine HCl (Clonidine Hcl 0.1 Mg Tablet) 0.3 mg PO BEDTIME [facility]; Protocol Furosemide (Furosemide 20 Mg Tablet) 20 mg PO DAILY [facility]; Protocol Last Admin: 05/28/23 08:20 Dose: 20 mg Hydroxyzine HCl (Hydroxyzine Hcl 25 Mg Tablet) 25 mg PO Q6H PRN PRN Reason: Anxiety Last Admin: 05/28/23 01:36 Dose: 25 mg Levothyroxine Sodium (Levothyroxine Sodium 50 Mcg Tablet) 50 mcg PO DAILY@0600 [facility] Last Admin: 05/28/23 06:24 Dose: 50 mcg [place] Carbonate ([place] Carbonate 300 Mg Capsule) 300 mg PO DAILY [facility] Last Admin: 05/28/23 08:20 Dose: 300 mg [place] Carbonate ([place] Carbonate Er 300 Mg Tablet.Er) 600 mg PO BEDTIME [facility] Last Admin: 05/27/23 20:41 Dose: 600 mg Magnesium Hydroxide (Milk Of Magnesia 30 Ml Oral.Susp) 30 ml PO DAILY PRN PRN Reason: Constipation Metformin HCl (Metformin Hcl 500 Mg Tablet) 500 mg PO DAILY [facility] Last Admin: 05/28/23 08:20 Dose: 500 mg Nicotine Polacrilex (Nicotine Polacrilex 2 Mg Gum) 4 mg BUCCAL Q2H PRN PRN Reason: Nicotine Cravings Last Admin: 05/27/23 16:09 Dose: 4 mg Omeprazole (Omeprazole 20 Mg Capsule.Dr) 20 mg PO DAILY@0630 [facility] Last Admin: 05/28/23 07:04 Dose: 20 mg Ondansetron HCl (Ondansetron Odt 4 Mg Tab.Rapdis) 4 mg TRANSLINGU Q8H PRN PRN Reason: Nausea Quetiapine Fumarate (Quetiapine Fumarate 300 Mg Tablet) 300 mg PO DAILY [facility] Last Admin: 05/28/23 08:20 Dose: 300 mg Rivaroxaban (Rivaroxaban 10 Mg Tablet) 10 mg PO DAILY@1700 [facility] Last Admin: 05/27/23 16:09 Dose: 10 mg Trazodone HCl (Trazodone Hcl 50 Mg Tablet) 50 mg PO BEDTIME MRX1 PRN PRN Reason: Insomnia Last Admin: 05/28/23 01:36 Dose: 50 mg Allergies Allergies Allergy/AdvReac Type Severity Reaction Status Date / Time phenytoin [From DILANTIN] Allergy Unknown UNKNOWN Verified 05/25/23 11:18 venlafaxine [From EFFEXOR] Allergy Unknown UNKNOWN Verified 05/25/23 11:18 Dilantin Allergy Unknown Unknown Uncoded 05/25/23 11:18 Effexor Allergy Unknown Unknown Uncoded 05/25/23 11:18 MEDICAL TAPE Allergy Unknown UNKNOWN Uncoded 06/06/20 15:26 Assessment & Plan Assessment & Plan (1) Bipolar I disorder with mixed features: Status: Acute Code(s): F31.9 - Bipolar disorder, unspecified (2) PTSD (post-traumatic stress disorder): Status: Acute Code(s): F43.10 - Post-traumatic stress disorder, unspecified (3) Cocaine use disorder: Status: Acute Code(s): F14.10 - Cocaine abuse, uncomplicated (4) Alcohol use disorder: Status: Acute Code(s): F10.90 - Alcohol use, unspecified, uncomplicated (5) History of seizure: Status: Acute Code(s): Z87.898 - Personal history of other specified conditions (6) Diabetes mellitus: Status: Acute Code(s): E11.9 - Type 2 diabetes mellitus without complications Plan 05/27: restart home medications. add clonidine 0.1/0.1/0.2 for BP and nightmares and insomnia in PTSD. 05/28: c/o nightmares and insomnia. increase HS clonidine dosing to 0.3 mg. otherwise continue current mgmt. Reason for continued inpatient stay Substantial Risk for: inability to function and rapid decompensation Time Spent With Patient Time: Total time managing care of this patient today ____ minutes.
[2023-05-28] MEDS: Rivaroxaban 10 MG TABLET PO (18:12)
[2023-05-28 19:45] VITALS: BP 126/72; PULSE 94; RESP 18; TEMP 36.6; O2SAT 99
[2023-05-28] MEDS: cloNIDine HCL 0.1 MG TABLET 0.3 MG PO (20:10)
[2023-05-28] MEDS: Lithium Carbonate ER 300 MG TABLET.ER 600 MG PO (20:11)
[2023-05-29] MEDS: hydrOXYzine HCL 25 MG TABLET PO (00:53)
[2023-05-29] MEDS: traZODone HCL 50 MG TABLET PO (00:53)
[2023-05-29] MEDS: Magnesium Hydrox/Alum Hydrox 30 ML ORAL.SUSP PO ×2 (03:43→15:52)
[2023-05-29] MEDS: Levothyroxine Sodium 50 MCG TABLET PO (06:10)
[2023-05-29] MEDS: Omeprazole 20 MG CAPSULE.DR PO (06:38)
[2023-05-29] MEDS: Albuterol Sulfate 90 MCG 8 GM INHALER 2 PUFF INHALE (06:40)
[2023-05-29 07:50] VITALS: BP 119/72; PULSE 72; TEMP 36.2; O2SAT 99
[2023-05-29] MEDS: metFORMIN HCl 500 MG TABLET PO (08:00)
[2023-05-29] MEDS: clonazePAM 1 MG TABLET PO ×3 (08:00→20:17)
[2023-05-29] MEDS: Furosemide 20 MG TABLET PO (08:00)
[2023-05-29] MEDS: chlorproMAZINE HCl 25 MG TABLET 50 MG PO ×3 (08:00→20:16)
[2023-05-29] MEDS: QUEtiapine Fumarate 300 MG TABLET PO (08:00)
[2023-05-29] MEDS: Lithium Carbonate 300 MG CAPSULE PO (08:01)
[2023-05-29] MEDS: cloNIDine HCL 0.1 MG TABLET PO ×2 (08:01→14:08)
[2023-05-29] MEDS: Acetaminophen 325 MG TABLET 650 MG PO (08:03)
[2023-05-29] MEDS: Buprenorphine/Naloxone 2/0.5mg FILM 1 FILM SUBLINGUAL (08:31)
[2023-05-29 14:05] VITALS: BP 128/82; PULSE 79; RESP 17
[2023-05-29] MEDS: Nicotine Polacrilex 2 MG GUM 4 MG BUCCAL (15:24)
--- NOTE | 2023-05-29 16:18 | P.PNPSI_ITS ---
Subjective Subjective Date of Service: 05/29/23 Reason For Visit: Crisis Subjective Notes: Conditional Voluntary Medical Problems Affecting Mental Status: No Interim History: met with patient. Discussed with Nursing. Med adherent. Hallucinations getting less. With medical writer reports mood is improving. Hopeful for stabilizing back on medications and reengaging with support services and getting back to sobriety. Has a history of 2 years sobriety up until recent relapse. Application for [email or web address] in place. Reports still feeling depressed and still has hallucinations but they are decreasing. Sleep remains very broken. We discussed increasing or adding Seroquel at bedtime. Medication Compliance: Yes Side effects from medications: No Attending Groups: Yes Review of Systems Acute medical concerns: No Review of Systems Review of Systems Unremarkable Mental Status Exam Mental Status Exam Narrative: pleasant. Engaged. Fairly presented. Depressed. No SI. No HI. No agitation. No paranoia. Hallucinations lessening. Insight and judgment fair Diagnostics Vital Signs (24Hr): Vital Signs - 24 hr 05/28/23 19:45 05/29/23 07:50 05/29/23 14:05 Temperature 97.8 F 97.2 F Pulse Rate 94 72 79 Respiratory Rate 18 17 Blood Pressure 126/72 119/72 128/82 Pulse Oximetry 99 99 Oxygen Delivery Method Room Air Room Air BMI result Body Mass Index 35.9 Labs 05/25/23 16:29 05/27/23 12:42 Medications Medications Current Medications Acetaminophen (Acetaminophen 325 Mg Tablet) 650 mg PO Q6H PRN PRN Reason: Headache/Pain Mild Scale (1-3) Last Admin: 05/29/23 08:03 Dose: 650 mg Al Hydroxide/Mg Hydroxide (Magnesium Hydrox/Alum Hydrox 30 Ml Oral.Susp) 30 ml PO Q6H PRN PRN Reason: Heartburn/Nausea Last Admin: 05/29/23 15:52 Dose: 30 ml Albuterol Sulfate (Albuterol Sulfate 90 Mcg 8 Gm Inhaler) 2 puff INHALE Q4H PRN PRN Reason: Wheezing Last Admin: 05/29/23 06:40 Dose: 2 puff Buprenorphine/Naloxone (Buprenorphine/Naloxone 2/0.5mg Film) 1 film SUBLINGUAL DAILY [facility] Last Admin: 05/29/23 08:31 Dose: 1 film Chlorpromazine HCl (Chlorpromazine Hcl 25 Mg Tablet) 50 mg PO TID [facility] Last Admin: 05/29/23 14:08 Dose: 50 mg Clonazepam (Clonazepam 1 Mg Tablet) 1 mg PO TID [facility] Last Admin: 05/29/23 14:08 Dose: 1 mg Clonidine HCl (Clonidine Hcl 0.1 Mg Tablet) 0.1 mg PO BID@0900,1500 [facility]; Protocol Last Admin: 05/29/23 14:08 Dose: 0.1 mg Clonidine HCl (Clonidine Hcl 0.2 Mg Tablet) 0.2 mg PO BEDTIME [facility]; Protocol Furosemide (Furosemide 20 Mg Tablet) 20 mg PO DAILY [facility]; Protocol Last Admin: 05/29/23 08:00 Dose: 20 mg Hydroxyzine HCl (Hydroxyzine Hcl 25 Mg Tablet) 25 mg PO Q6H PRN PRN Reason: Anxiety Last Admin: 05/29/23 00:53 Dose: 25 mg Levothyroxine Sodium (Levothyroxine Sodium 50 Mcg Tablet) 50 mcg PO DAILY@0600 [facility] Last Admin: 05/29/23 06:10 Dose: 50 mcg [place] Carbonate ([place] Carbonate 300 Mg Capsule) 300 mg PO DAILY [facility] Last Admin: 05/29/23 08:01 Dose: 300 mg [place] Carbonate ([place] Carbonate Er 300 Mg Tablet.Er) 600 mg PO BEDTIME [facility] Last Admin: 05/28/23 20:11 Dose: 600 mg Magnesium Hydroxide (Milk Of Magnesia 30 Ml Oral.Susp) 30 ml PO DAILY PRN PRN Reason: Constipation Metformin HCl (Metformin Hcl 500 Mg Tablet) 500 mg PO DAILY [facility] Last Admin: 05/29/23 08:00 Dose: 500 mg Nicotine Polacrilex (Nicotine Polacrilex 2 Mg Gum) 4 mg BUCCAL Q2H PRN PRN Reason: Nicotine Cravings Last Admin: 05/29/23 15:24 Dose: 4 mg Omeprazole (Omeprazole 20 Mg Capsule.Dr) 20 mg PO DAILY@0630 [facility] Last Admin: 05/29/23 06:38 Dose: 20 mg Ondansetron HCl (Ondansetron Odt 4 Mg Tab.Rapdis) 4 mg TRANSLINGU Q8H PRN PRN Reason: Nausea Quetiapine Fumarate (Quetiapine Fumarate 300 Mg Tablet) 300 mg PO DAILY [facility] Last Admin: 05/29/23 08:00 Dose: 300 mg Quetiapine Fumarate (Quetiapine Fumarate 100 Mg Tablet) 100 mg PO BEDTIME [facility] Rivaroxaban (Rivaroxaban 10 Mg Tablet) 10 mg PO DAILY@1700 [facility] Last Admin: 05/28/23 18:12 Dose: 10 mg Trazodone HCl (Trazodone Hcl 50 Mg Tablet) 50 mg PO BEDTIME MRX1 PRN PRN Reason: Insomnia Last Admin: 05/29/23 00:53 Dose: 50 mg Allergies Allergies Allergy/AdvReac Type Severity Reaction Status Date / Time phenytoin [From DILANTIN] Allergy Unknown UNKNOWN Verified 05/25/23 11:18 venlafaxine [From EFFEXOR] Allergy Unknown UNKNOWN Verified 05/25/23 11:18 Dilantin Allergy Unknown Unknown Uncoded 05/25/23 11:18 Effexor Allergy Unknown Unknown Uncoded 05/25/23 11:18 MEDICAL TAPE Allergy Unknown UNKNOWN Uncoded 06/06/20 15:26 Assessment & Plan Assessment & Plan (1) Bipolar I disorder with mixed features: Status: Acute Code(s): F31.9 - Bipolar disorder, unspecified (2) PTSD (post-traumatic stress disorder): Status: Acute Code(s): F43.10 - Post-traumatic stress disorder, unspecified (3) Cocaine use disorder: Status: Acute Code(s): F14.10 - Cocaine abuse, uncomplicated (4) Alcohol use disorder: Status: Acute Code(s): F10.90 - Alcohol use, unspecified, uncomplicated (5) History of seizure: Status: Acute Code(s): Z87.898 - Personal history of other specified conditions (6) Diabetes mellitus: Status: Acute Code(s): E11.9 - Type 2 diabetes mellitus without complications Plan 05/27: restart home medications. add clonidine 0.1/0.1/0.2 for BP and nightmares and insomnia in PTSD. 05/28: c/o nightmares and insomnia. increase HS clonidine dosing to 0.3 mg. otherwise continue current mgmt. 05/29/2023: Add Seroquel 100 mg at bedtime Reason for continued inpatient stay Substantial Risk for: rapid decompensation Time Spent With Patient Time: Total time managing care of this patient today ____ minutes.
[2023-05-29] MEDS: Rivaroxaban 10 MG TABLET PO (16:55)
[2023-05-29 20:15] VITALS: BP 124/68; PULSE 91; RESP 18; TEMP 36.6; O2SAT 97
[2023-05-29] MEDS: QUEtiapine Fumarate 100 MG TABLET PO (20:16)
[2023-05-29] MEDS: Lithium Carbonate ER 300 MG TABLET.ER 600 MG PO (20:17)
[2023-05-29] MEDS: cloNIDine HCL 0.2 MG TABLET PO (20:17)
[2023-05-30] MEDS: traZODone HCL 50 MG TABLET PO (00:26)
[2023-05-30] MEDS: hydrOXYzine HCL 25 MG TABLET PO (00:26)
[2023-05-30] MEDS: Levothyroxine Sodium 50 MCG TABLET PO (06:10)
[2023-05-30 08:30] VITALS: BP 158/70; PULSE 73; RESP 17; TEMP 36.4; O2SAT 99
[2023-05-30] MEDS: Buprenorphine/Naloxone 2/0.5mg FILM 1 FILM SUBLINGUAL (08:41)
[2023-05-30] MEDS: clonazePAM 1 MG TABLET PO ×3 (08:41→20:15)
[2023-05-30] MEDS: chlorproMAZINE HCl 25 MG TABLET 50 MG PO ×3 (08:42→20:10)
[2023-05-30] MEDS: Furosemide 20 MG TABLET PO (08:42)
[2023-05-30] MEDS: Lithium Carbonate 300 MG CAPSULE PO (08:42)
[2023-05-30] MEDS: QUEtiapine Fumarate 300 MG TABLET PO (08:42)
[2023-05-30] MEDS: metFORMIN HCl 500 MG TABLET PO (08:43)
[2023-05-30] MEDS: cloNIDine HCL 0.1 MG TABLET PO ×2 (08:43→14:11)
[2023-05-30] MEDS: Omeprazole 20 MG CAPSULE.DR PO (08:43)
[2023-05-30] MEDS: Magnesium Hydrox/Alum Hydrox 30 ML ORAL.SUSP PO ×2 (10:55→18:10)
[2023-05-30 14:09] VITALS: BP 140/68; PULSE 86; RESP 18; TEMP 36.5; O2SAT 100
[2023-05-30] MEDS: Nicotine Polacrilex 2 MG GUM 4 MG BUCCAL (15:39)
--- NOTE | 2023-05-30 16:17 | HO.PSYCHPN ---
Subjective Subjective Date of Service: 05/30/23 Reason For Visit: Crisis Interim History: Mood is improving and hallucinations less. Sleep remains very broken and irritable with others today. We discussed increasing Seroquel at bedtime and also adding prazosin and DC clonidine at bedtime. Will also order lithium level. Review of Systems Review of Systems Unremarkable Mental Status Exam Mental Status Exam Narrative: pleasant. Engaged. Fairly presented. Depressed. No SI. No HI. No agitation. No paranoia. Hallucinations lessening. Insight and judgment fair Diagnostics Vital Signs (24Hr): Vital Signs - 24 hr 05/29/23 20:15 05/30/23 08:30 05/30/23 14:09 Temperature 97.8 F 97.5 F 97.7 F Pulse Rate 91 73 86 Respiratory Rate 18 17 18 Blood Pressure 124/68 158/70 H 140/68 H Pulse Oximetry 97 99 100 Oxygen Delivery Method Room Air Room Air Room Air BMI result Body Mass Index 35.9 Labs 05/25/23 16:29 05/27/23 12:42 Medications Medications Current Medications Acetaminophen (Acetaminophen 325 Mg Tablet) 650 mg PO Q6H PRN PRN Reason: Headache/Pain Mild Scale (1-3) Last Admin: 05/29/23 08:03 Dose: 650 mg Al Hydroxide/Mg Hydroxide (Magnesium Hydrox/Alum Hydrox 30 Ml Oral.Susp) 30 ml PO Q6H PRN PRN Reason: Heartburn/Nausea Last Admin: 05/30/23 10:55 Dose: 30 ml Albuterol Sulfate (Albuterol Sulfate 90 Mcg 8 Gm Inhaler) 2 puff INHALE Q4H PRN PRN Reason: Wheezing Last Admin: 05/29/23 06:40 Dose: 2 puff Buprenorphine/Naloxone (Buprenorphine/Naloxone 2/0.5mg Film) 1 film SUBLINGUAL DAILY [facility] Last Admin: 05/30/23 08:41 Dose: 1 film Chlorpromazine HCl (Chlorpromazine Hcl 25 Mg Tablet) 50 mg PO TID [facility] Last Admin: 05/30/23 14:11 Dose: 50 mg Clonazepam (Clonazepam 1 Mg Tablet) 1 mg PO TID [facility] Last Admin: 05/30/23 14:11 Dose: 1 mg Clonidine HCl (Clonidine Hcl 0.1 Mg Tablet) 0.1 mg PO BID@0900,1500 [facility]; Protocol Last Admin: 05/30/23 14:11 Dose: 0.1 mg Furosemide (Furosemide 20 Mg Tablet) 20 mg PO DAILY [facility]; Protocol Last Admin: 05/30/23 08:42 Dose: 20 mg Hydroxyzine HCl (Hydroxyzine Hcl 25 Mg Tablet) 25 mg PO Q6H PRN PRN Reason: Anxiety Last Admin: 05/30/23 00:26 Dose: 25 mg Levothyroxine Sodium (Levothyroxine Sodium 50 Mcg Tablet) 50 mcg PO DAILY@0600 [facility] Last Admin: 05/30/23 06:10 Dose: 50 mcg [place] Carbonate ([place] Carbonate 300 Mg Capsule) 300 mg PO DAILY [facility] Last Admin: 05/30/23 08:42 Dose: 300 mg [place] Carbonate ([place] Carbonate Er 300 Mg Tablet.Er) 600 mg PO BEDTIME [facility] Last Admin: 05/29/23 20:17 Dose: 600 mg Magnesium Hydroxide (Milk Of Magnesia 30 Ml Oral.Susp) 30 ml PO DAILY PRN PRN Reason: Constipation Metformin HCl (Metformin Hcl 500 Mg Tablet) 500 mg PO DAILY [facility] Last Admin: 05/30/23 08:43 Dose: 500 mg Nicotine Polacrilex (Nicotine Polacrilex 2 Mg Gum) 4 mg BUCCAL Q2H PRN PRN Reason: Nicotine Cravings Last Admin: 05/30/23 15:39 Dose: 4 mg Omeprazole (Omeprazole 20 Mg Capsule.Dr) 20 mg PO DAILY@0630 [facility] Last Admin: 05/30/23 08:43 Dose: 20 mg Ondansetron HCl (Ondansetron Odt 4 Mg Tab.Rapdis) 4 mg TRANSLINGU Q8H PRN PRN Reason: Nausea Prazosin HCl (Prazosin Hcl 1 Mg Capsule) 2 mg PO BEDTIME [facility]; Protocol Quetiapine Fumarate (Quetiapine Fumarate 300 Mg Tablet) 300 mg PO DAILY [facility] Last Admin: 05/30/23 08:42 Dose: 300 mg Quetiapine Fumarate (Quetiapine Fumarate 200 Mg Tablet) 200 mg PO BEDTIME [facility] Rivaroxaban (Rivaroxaban 10 Mg Tablet) 10 mg PO DAILY@1700 [facility] Last Admin: 05/29/23 16:55 Dose: 10 mg Trazodone HCl (Trazodone Hcl 50 Mg Tablet) 50 mg PO BEDTIME MRX1 PRN PRN Reason: Insomnia Last Admin: 05/30/23 00:26 Dose: 50 mg Allergies Allergies Allergy/AdvReac Type Severity Reaction Status Date / Time phenytoin [From DILANTIN] Allergy Unknown UNKNOWN Verified 05/25/23 11:18 venlafaxine [From EFFEXOR] Allergy Unknown UNKNOWN Verified 05/25/23 11:18 Dilantin Allergy Unknown Unknown Uncoded 05/25/23 11:18 Effexor Allergy Unknown Unknown Uncoded 05/25/23 11:18 MEDICAL TAPE Allergy Unknown UNKNOWN Uncoded 06/06/20 15:26 Assessment & Plan Assessment & Plan (1) Bipolar I disorder with mixed features: Status: Acute Code(s): F31.9 - Bipolar disorder, unspecified (2) PTSD (post-traumatic stress disorder): Status: Acute Code(s): F43.10 - Post-traumatic stress disorder, unspecified (3) Cocaine use disorder: Status: Acute Code(s): F14.10 - Cocaine abuse, uncomplicated (4) Alcohol use disorder: Status: Acute Code(s): F10.90 - Alcohol use, unspecified, uncomplicated (5) History of seizure: Status: Acute Code(s): Z87.898 - Personal history of other specified conditions (6) Diabetes mellitus: Status: Acute Code(s): E11.9 - Type 2 diabetes mellitus without complications Plan 05/27: restart home medications. add clonidine 0.1/0.1/0.2 for BP and nightmares and insomnia in PTSD. 05/28: c/o nightmares and insomnia. increase HS clonidine dosing to 0.3 mg. otherwise continue current mgmt. 05/29/2023: Add Seroquel 100 mg at bedtime 05/30: increase Seroquel at bedtime to 200mg, also add prazosin and DC clonidine at bedtime. Will also order lithium level. Reason for continued inpatient stay Substantial Risk for: harm to self Time Spent With Patient Time: Total time managing care of this patient today ____ minutes.
[2023-05-30] MEDS: Rivaroxaban 10 MG TABLET PO (17:27)
[2023-05-30] MEDS: Ondansetron ODT 4 MG TAB.RAPDIS TRANSLINGU (18:38)
[2023-05-30 19:50] VITALS: BP 115/89; PULSE 95; RESP 18; TEMP 36.8; O2SAT 98
[2023-05-30] MEDS: Prazosin HCL 1 MG CAPSULE 2 MG PO (20:13)
[2023-05-30] MEDS: Lithium Carbonate ER 300 MG TABLET.ER 600 MG PO (20:14)
[2023-05-30] MEDS: QUEtiapine Fumarate 200 MG TABLET PO (20:15)
[2023-05-31] MEDS: Magnesium Hydrox/Alum Hydrox 30 ML ORAL.SUSP PO ×2 (00:25→13:32)
[2023-05-31] MEDS: hydrOXYzine HCL 25 MG TABLET PO (00:25)
[2023-05-31 06:00] VITALS: BP 121/78; PULSE 79; RESP 16; TEMP 36.2; O2SAT 98
[2023-05-31] MEDS: Omeprazole 20 MG CAPSULE.DR PO (06:14)
[2023-05-31] MEDS: Levothyroxine Sodium 50 MCG TABLET PO (06:14)
[2023-05-31 08:20] VITALS: BP 121/78; PULSE 79; RESP 16; TEMP 36.2; O2SAT 98
[2023-05-31] MEDS: Acetaminophen 325 MG TABLET 650 MG PO (08:42)
[2023-05-31] MEDS: Furosemide 20 MG TABLET PO (08:43)
[2023-05-31] MEDS: Buprenorphine/Naloxone 2/0.5mg FILM 1 FILM SUBLINGUAL (08:43)
[2023-05-31] MEDS: metFORMIN HCl 500 MG TABLET PO (08:43)
[2023-05-31] MEDS: Lithium Carbonate 300 MG CAPSULE PO (08:44)
[2023-05-31] MEDS: cloNIDine HCL 0.1 MG TABLET PO ×2 (08:44→14:39)
[2023-05-31] MEDS: QUEtiapine Fumarate 300 MG TABLET PO ×2 (08:45→20:44)
[2023-05-31] MEDS: chlorproMAZINE HCl 25 MG TABLET 50 MG PO ×3 (08:45→20:44)
[2023-05-31] MEDS: Ondansetron ODT 4 MG TAB.RAPDIS TRANSLINGU ×2 (08:45→17:29)
[2023-05-31 08:57] LABS: Lithium 0.48 mmol/L (0.60-1.20)
[2023-05-31 14:36] VITALS: BP 134/67; PULSE 79
--- NOTE | 2023-05-31 14:41 | HO.PSYCHPN ---
Subjective Subjective Date of Service: 05/31/23 Reason For Visit: Crisis Interim History: pt reports he is feeling gradually better. optimistic, looking into CSSs and sober houses. asks that seroquel at HS be increased to 300 mg from 200 mg, stating that this had been the plan with Dr. Dozier. per staff, hopeful for housing. wants CSS. anx/dep. nightmares. slept better last NOC. Mental Status Exam Mental Status Exam Narrative: calm, cooperative. dressed in street clothes. adequately groomed. no PMA/PMR. speech nml rate, amount, loudness, tone, latency. mood better. no SI/SIBI/HI/AVH expressed. Diagnostics Vital Signs (24Hr): Vital Signs - 24 hr 05/30/23 19:50 05/31/23 06:00 05/31/23 08:20 Temperature 98.2 F 97.2 F 97.2 F Pulse Rate 95 79 79 Respiratory Rate 18 16 16 Blood Pressure 115/89 121/78 121/78 Pulse Oximetry 98 98 98 Oxygen Delivery Method Room Air Room Air Room Air 05/31/23 14:36 Temperature Pulse Rate 79 Respiratory Rate Blood Pressure 134/67 Pulse Oximetry Oxygen Delivery Method BMI result Body Mass Index 35.9 Labs 05/25/23 16:29 05/27/23 12:42 Labs: Laboratory Results - last 48 hr 05/31/23 07:27 [place] 0.48 L Medications Medications Current Medications Acetaminophen (Acetaminophen 325 Mg Tablet) 650 mg PO Q6H PRN PRN Reason: Headache/Pain Mild Scale (1-3) Last Admin: 05/31/23 08:42 Dose: 650 mg Al Hydroxide/Mg Hydroxide (Magnesium Hydrox/Alum Hydrox 30 Ml Oral.Susp) 30 ml PO Q6H PRN PRN Reason: Heartburn/Nausea Last Admin: 05/31/23 13:32 Dose: 30 ml Albuterol Sulfate (Albuterol Sulfate 90 Mcg 8 Gm Inhaler) 2 puff INHALE Q4H PRN PRN Reason: Wheezing Last Admin: 05/29/23 06:40 Dose: 2 puff Buprenorphine/Naloxone (Buprenorphine/Naloxone 2/0.5mg Film) 1 film SUBLINGUAL DAILY [facility] Last Admin: 05/31/23 08:43 Dose: 1 film Chlorpromazine HCl (Chlorpromazine Hcl 25 Mg Tablet) 50 mg PO TID COUNTS INCLUDE 234 BEDS AT THE [facility] Last Admin: 05/31/23 14:40 Dose: 50 mg Clonidine HCl (Clonidine Hcl 0.1 Mg Tablet) 0.1 mg PO BID@0900,1500 COUNTS INCLUDE 234 BEDS AT THE [facility]; Protocol Last Admin: 05/31/23 14:39 Dose: 0.1 mg Furosemide (Furosemide 20 Mg Tablet) 20 mg PO DAILY COUNTS INCLUDE 234 BEDS AT THE [facility]; Protocol Last Admin: 05/31/23 08:43 Dose: 20 mg Hydroxyzine HCl (Hydroxyzine Hcl 25 Mg Tablet) 25 mg PO Q6H PRN PRN Reason: Anxiety Last Admin: 05/31/23 00:25 Dose: 25 mg Levothyroxine Sodium (Levothyroxine Sodium 50 Mcg Tablet) 50 mcg PO DAILY@0600 COUNTS INCLUDE 234 BEDS AT THE [facility] Last Admin: 05/31/23 06:14 Dose: 50 mcg [place] Carbonate ([place] Carbonate 300 Mg Capsule) 300 mg PO DAILY COUNTS INCLUDE 234 BEDS AT THE [facility] Last Admin: 05/31/23 08:44 Dose: 300 mg [place] Carbonate ([place] Carbonate Er 300 Mg Tablet.Er) 600 mg PO BEDTIME COUNTS INCLUDE 234 BEDS AT THE [facility] Last Admin: 05/30/23 20:14 Dose: 600 mg Magnesium Hydroxide (Milk Of Magnesia 30 Ml Oral.Susp) 30 ml PO DAILY PRN PRN Reason: Constipation Metformin HCl (Metformin Hcl 500 Mg Tablet) 500 mg PO DAILY COUNTS INCLUDE 234 BEDS AT THE [facility] Last Admin: 05/31/23 08:43 Dose: 500 mg Nicotine Polacrilex (Nicotine Polacrilex 2 Mg Gum) 4 mg BUCCAL Q2H PRN PRN Reason: Nicotine Cravings Last Admin: 05/30/23 15:39 Dose: 4 mg Omeprazole (Omeprazole 20 Mg Capsule.Dr) 20 mg PO DAILY@0630 COUNTS INCLUDE 234 BEDS AT THE [facility] Last Admin: 05/31/23 06:14 Dose: 20 mg Ondansetron HCl (Ondansetron Odt 4 Mg Tab.Rapdis) 4 mg TRANSLINGU Q8H PRN PRN Reason: Nausea Last Admin: 05/31/23 08:45 Dose: 4 mg Ondansetron HCl (Ondansetron Odt 4 Mg Tab.Rapdis) 4 mg TRANSLINGU Q8H PRN PRN Reason: Nausea Prazosin HCl (Prazosin Hcl 1 Mg Capsule) 2 mg PO BEDTIME COUNTS INCLUDE 234 BEDS AT THE [facility]; Protocol Last Admin: 05/30/23 20:13 Dose: 2 mg Quetiapine Fumarate (Quetiapine Fumarate 300 Mg Tablet) 300 mg PO DAILY COUNTS INCLUDE 234 BEDS AT THE [facility] Last Admin: 05/31/23 08:45 Dose: 300 mg Quetiapine Fumarate (Quetiapine Fumarate 300 Mg Tablet) 300 mg PO BEDTIME COUNTS INCLUDE 234 BEDS AT THE [facility] Rivaroxaban (Rivaroxaban 10 Mg Tablet) 10 mg PO DAILY@1700 COUNTS INCLUDE 234 BEDS AT THE [facility] Last Admin: 05/30/23 17:27 Dose: 10 mg Trazodone HCl (Trazodone Hcl 50 Mg Tablet) 50 mg PO BEDTIME MRX1 PRN PRN Reason: Insomnia Last Admin: 05/30/23 00:26 Dose: 50 mg Allergies Allergies Allergy/AdvReac Type Severity Reaction Status Date / Time phenytoin [From DILANTIN] Allergy Unknown UNKNOWN Verified 05/25/23 11:18 venlafaxine [From EFFEXOR] Allergy Unknown UNKNOWN Verified 05/25/23 11:18 Dilantin Allergy Unknown Unknown Uncoded 05/25/23 11:18 Effexor Allergy Unknown Unknown Uncoded 05/25/23 11:18 MEDICAL TAPE Allergy Unknown UNKNOWN Uncoded 06/06/20 15:26 Assessment & Plan Assessment & Plan (1) Bipolar I disorder with mixed features: Status: Acute Code(s): F31.9 - Bipolar disorder, unspecified (2) PTSD (post-traumatic stress disorder): Status: Acute Code(s): F43.10 - Post-traumatic stress disorder, unspecified (3) Cocaine use disorder: Status: Acute Code(s): F14.10 - Cocaine abuse, uncomplicated (4) Alcohol use disorder: Status: Acute Code(s): F10.90 - Alcohol use, unspecified, uncomplicated (5) History of seizure: Status: Acute Code(s): Z87.898 - Personal history of other specified conditions (6) Diabetes mellitus: Qualifiers: Diabetes mellitus type: type 2 Diabetes mellitus complication status: without complication Status: Acute Code(s): E11.9 - Type 2 diabetes mellitus without complications Plan 05/27: restart home medications. add clonidine 0.1/0.1/0.2 for BP and nightmares and insomnia in PTSD. 05/28: c/o nightmares and insomnia. increase HS clonidine dosing to 0.3 mg. otherwise continue current mgmt. 05/29/2023: Add Seroquel 100 mg at bedtime 05/30: increase Seroquel at bedtime to 200mg, also add prazosin and DC clonidine at bedtime. Will also order lithium level. 05/31: slept better, no nightmares. increase seroquel at HS to 300 mg. declines to DC thorazine. looking into CSS/sober houses. Reason for continued inpatient stay Substantial Risk for: inability to function and rapid decompensation Time Spent With Patient Time: Total time managing care of this patient today _25___ minutes.
[2023-05-31] MEDS: clonazePAM 1 MG TABLET PO ×2 (14:53→20:44)
[2023-05-31] MEDS: Rivaroxaban 10 MG TABLET PO (16:47)
[2023-05-31 20:36] VITALS: BP 137/76; PULSE 86; RESP 18; TEMP 36.2; O2SAT 97
[2023-05-31] MEDS: Prazosin HCL 1 MG CAPSULE 2 MG PO (20:44)
[2023-05-31] MEDS: Lithium Carbonate ER 300 MG TABLET.ER 600 MG PO (20:44)
[2023-06-01] MEDS: hydrOXYzine HCL 25 MG TABLET PO
[2023-06-01] MEDS: traZODone HCL 50 MG TABLET PO (02:16)
--- NOTE | 2023-06-01 02:17 | PC.NURSE ---
Grant informed this documentation writer that he is continuing to have vivid disturbing dreams I just woke up crying. I had a nightmare that these people had stolen my dog and then they killed it in front of me. What the fuck, at first I didn't know it was a dream. It was terrible. I couldn't understand what was happening and I didn't know what i could have done to deserve that. It was fucking horrible . patient reassured that it was just a bad dream. patient given PRN Trazodone and encouraged to inform his provider that he continues to have vivid disturbing dreams
[2023-06-01] MEDS: Magnesium Hydrox/Alum Hydrox 30 ML ORAL.SUSP PO ×2 (03:17→11:00)
[2023-06-01 06:00] VITALS: BP 121/78; PULSE 78; RESP 18
[2023-06-01] MEDS: Levothyroxine Sodium 50 MCG TABLET PO (07:39)
[2023-06-01] MEDS: chlorproMAZINE HCl 25 MG TABLET 50 MG PO ×3 (08:18→20:54)
[2023-06-01] MEDS: metFORMIN HCl 500 MG TABLET PO (08:18)
[2023-06-01] MEDS: Furosemide 20 MG TABLET PO (08:18)
[2023-06-01] MEDS: Omeprazole 20 MG CAPSULE.DR PO (08:18)
[2023-06-01] MEDS: cloNIDine HCL 0.1 MG TABLET PO ×2 (08:18→14:07)
[2023-06-01] MEDS: clonazePAM 1 MG TABLET PO ×3 (08:18→20:54)
[2023-06-01] MEDS: Lithium Carbonate 300 MG CAPSULE PO (08:18)
[2023-06-01] MEDS: Buprenorphine/Naloxone 2/0.5mg FILM 1 FILM SUBLINGUAL (08:19)
[2023-06-01] MEDS: QUEtiapine Fumarate 300 MG TABLET PO ×2 (08:19→20:54)
[2023-06-01] MEDS: Simethicone 80 MG TAB.CHEW PO ×2 (11:27→17:51)
[2023-06-01] MEDS: Dicyclomine HCl 10 MG CAPSULE PO ×2 (11:27→19:04)
[2023-06-01] MEDS: Lithium Carbonate ER 300 MG TABLET.ER PO (12:10)
[2023-06-01] MEDS: Nicotine Polacrilex 2 MG GUM 4 MG BUCCAL (13:39)
[2023-06-01 14:06] VITALS: BP 137/77; PULSE 82
--- NOTE | 2023-06-01 15:00 | HO.PSYCHPN ---
Subjective Subjective Date of Service: 06/01/23 Reason For Visit: Crisis Interim History: labs reviewed, lithium level 0.48. pt feels a higher level would be more beneficial to him and requests to increase dosing to 1200 mg daily, which he has been on in the past. pt also reports nightmares, although slept reasonably well otherwise. agreeable to increase prazosin to 3 mg at HS. per staff, pleasant. mod anx/dep. no SI/HI/AVH. social. good appetite. intense nightmare last NOC. Mental Status Exam Mental Status Exam Narrative: calm, cooperative. dressed in street clothes. adequately groomed. no PMA/PMR. speech nml rate, amount, loudness, tone, latency. no SI/SIBI/HI/AVH expressed. Diagnostics Vital Signs (24Hr): Vital Signs - 24 hr 05/31/23 20:36 06/01/23 06:00 06/01/23 14:06 Temperature 97.2 F Pulse Rate 86 78 82 Respiratory Rate 18 18 Blood Pressure 137/76 121/78 137/77 Pulse Oximetry 97 Oxygen Delivery Method Room Air BMI result Body Mass Index 35.9 Labs 05/25/23 16:29 05/27/23 12:42 Labs: Laboratory Results - last 48 hr 05/31/23 07:27 [place] 0.48 L Medications Medications Current Medications Acetaminophen (Acetaminophen 325 Mg Tablet) 650 mg PO Q6H PRN PRN Reason: Headache/Pain Mild Scale (1-3) Last Admin: 05/31/23 08:42 Dose: 650 mg Al Hydroxide/Mg Hydroxide (Magnesium Hydrox/Alum Hydrox 30 Ml Oral.Susp) 30 ml PO Q6H PRN PRN Reason: Heartburn/Nausea Last Admin: 06/01/23 11:00 Dose: 30 ml Albuterol Sulfate (Albuterol Sulfate 90 Mcg 8 Gm Inhaler) 2 puff INHALE Q4H PRN PRN Reason: Wheezing Last Admin: 05/29/23 06:40 Dose: 2 puff Buprenorphine/Naloxone (Buprenorphine/Naloxone 2/0.5mg Film) 1 film SUBLINGUAL DAILY [facility] Last Admin: 06/01/23 08:19 Dose: 1 film Chlorpromazine HCl (Chlorpromazine Hcl 25 Mg Tablet) 50 mg PO TID [facility] Last Admin: 06/01/23 14:07 Dose: 50 mg Clonazepam (Clonazepam 1 Mg Tablet) 1 mg PO TID [facility] Last Admin: 06/01/23 14:07 Dose: 1 mg Clonidine HCl (Clonidine Hcl 0.1 Mg Tablet) 0.1 mg PO BID@0900,1500 [facility]; Protocol Last Admin: 06/01/23 14:07 Dose: 0.1 mg Dicyclomine HCl (Dicyclomine Hcl 10 Mg Capsule) 10 mg PO QIDACHS PRN PRN Reason: stomach cramping Last Admin: 06/01/23 11:27 Dose: 10 mg Furosemide (Furosemide 20 Mg Tablet) 20 mg PO DAILY [facility]; Protocol Last Admin: 06/01/23 08:18 Dose: 20 mg Hydroxyzine HCl (Hydroxyzine Hcl 25 Mg Tablet) 25 mg PO Q6H PRN PRN Reason: Anxiety Last Admin: 06/01/23 00:00 Dose: 25 mg Levothyroxine Sodium (Levothyroxine Sodium 50 Mcg Tablet) 50 mcg PO DAILY@0600 [facility] Last Admin: 06/01/23 07:39 Dose: 50 mcg [place] Carbonate ([place] Carbonate Er 300 Mg Tablet.Er) 600 mg PO BEDTIME [facility] Last Admin: 05/31/23 20:44 Dose: 600 mg [place] Carbonate ([place] Carbonate 300 Mg Capsule) 600 mg PO DAILY [facility] Magnesium Hydroxide (Milk Of Magnesia 30 Ml Oral.Susp) 30 ml PO DAILY PRN PRN Reason: Constipation Metformin HCl (Metformin Hcl 500 Mg Tablet) 500 mg PO DAILY [facility] Last Admin: 06/01/23 08:18 Dose: 500 mg Nicotine Polacrilex (Nicotine Polacrilex 2 Mg Gum) 4 mg BUCCAL Q2H PRN PRN Reason: Nicotine Cravings Last Admin: 06/01/23 13:39 Dose: 4 mg Omeprazole (Omeprazole 20 Mg Capsule.Dr) 20 mg PO DAILY@0630 [facility] Last Admin: 06/01/23 08:18 Dose: 20 mg Ondansetron HCl (Ondansetron Odt 4 Mg Tab.Rapdis) 4 mg TRANSLINGU Q8H PRN PRN Reason: Nausea Last Admin: 05/31/23 17:29 Dose: 4 mg Ondansetron HCl (Ondansetron Odt 4 Mg Tab.Rapdis) 4 mg TRANSLINGU Q8H PRN PRN Reason: Nausea Prazosin HCl (Prazosin Hcl 1 Mg Capsule) 3 mg PO BEDTIME [facility]; Protocol Quetiapine Fumarate (Quetiapine Fumarate 300 Mg Tablet) 300 mg PO DAILY [facility] Last Admin: 06/01/23 08:19 Dose: 300 mg Quetiapine Fumarate (Quetiapine Fumarate 300 Mg Tablet) 300 mg PO BEDTIME [facility] Last Admin: 05/31/23 20:44 Dose: 300 mg Rivaroxaban (Rivaroxaban 10 Mg Tablet) 10 mg PO DAILY@1700 [facility] Last Admin: 05/31/23 16:47 Dose: 10 mg Simethicone (Simethicone 80 Mg Tab.Chew) 80 mg PO QIDWMHS PRN PRN Reason: stomach pain Last Admin: 06/01/23 11:27 Dose: 80 mg Trazodone HCl (Trazodone Hcl 50 Mg Tablet) 50 mg PO BEDTIME MRX1 PRN PRN Reason: Insomnia Last Admin: 06/01/23 02:16 Dose: 50 mg Allergies Allergies Allergy/AdvReac Type Severity Reaction Status Date / Time phenytoin [From DILANTIN] Allergy Unknown UNKNOWN Verified 05/25/23 11:18 venlafaxine [From EFFEXOR] Allergy Unknown UNKNOWN Verified 05/25/23 11:18 Dilantin Allergy Unknown Unknown Uncoded 05/25/23 11:18 Effexor Allergy Unknown Unknown Uncoded 05/25/23 11:18 MEDICAL TAPE Allergy Unknown UNKNOWN Uncoded 06/06/20 15:26 Assessment & Plan Assessment & Plan (1) Bipolar I disorder with mixed features: Status: Acute Code(s): F31.9 - Bipolar disorder, unspecified (2) PTSD (post-traumatic stress disorder): Status: Acute Code(s): F43.10 - Post-traumatic stress disorder, unspecified (3) Cocaine use disorder: Status: Acute Code(s): F14.10 - Cocaine abuse, uncomplicated (4) Alcohol use disorder: Status: Acute Code(s): F10.90 - Alcohol use, unspecified, uncomplicated (5) History of seizure: Status: Acute Code(s): Z87.898 - Personal history of other specified conditions (6) Diabetes mellitus: Qualifiers: Diabetes mellitus type: type 2 Diabetes mellitus complication status: without complication Status: Acute Code(s): E11.9 - Type 2 diabetes mellitus without complications Plan 05/27: restart home medications. add clonidine 0.1/0.1/0.2 for BP and nightmares and insomnia in PTSD. 05/28: c/o nightmares and insomnia. increase HS clonidine dosing to 0.3 mg. otherwise continue current mgmt. 05/29/2023: Add Seroquel 100 mg at bedtime 05/30: increase Seroquel at bedtime to 200mg, also add prazosin and DC clonidine at bedtime. Will also order lithium level. 05/31: slept better, no nightmares. increase seroquel at HS to 300 mg. declines to DC thorazine. looking into CSS/sober houses. 06/01: lithium level 0.48. increase lithium dosing to 1200 mg daily. nightmare last night but otherwise slept well. looking into CSS. Reason for continued inpatient stay Substantial Risk for: inability to function and rapid decompensation Time Spent With Patient Time: Total time managing care of this patient today _25___ minutes.
[2023-06-01] MEDS: Rivaroxaban 10 MG TABLET PO (16:51)
[2023-06-01 20:45] VITALS: BP 130/74; PULSE 88; RESP 18; TEMP 36.6; O2SAT 98
[2023-06-01] MEDS: Lithium Carbonate ER 300 MG TABLET.ER 600 MG PO (20:54)
[2023-06-01] MEDS: Prazosin HCL 1 MG CAPSULE 3 MG PO (20:54)
[2023-06-02] MEDS: traZODone HCL 50 MG TABLET PO ×2 (00:36→21:18)
[2023-06-02] MEDS: hydrOXYzine HCL 25 MG TABLET PO ×3 (00:36→20:29)
[2023-06-02] MEDS: Levothyroxine Sodium 50 MCG TABLET PO (05:40)
[2023-06-02] MEDS: Albuterol Sulfate 90 MCG 8 GM INHALER 2 PUFF INHALE (06:12)
[2023-06-02] MEDS: Omeprazole 20 MG CAPSULE.DR PO (06:50)
[2023-06-02 08:09] VITALS: BP 124/76; PULSE 78; RESP 16; TEMP 36.3; O2SAT 99
[2023-06-02] MEDS: chlorproMAZINE HCl 25 MG TABLET 50 MG PO ×3 (08:29→20:28)
[2023-06-02] MEDS: metFORMIN HCl 500 MG TABLET PO (08:30)
[2023-06-02] MEDS: QUEtiapine Fumarate 300 MG TABLET PO ×2 (08:30→20:28)
[2023-06-02] MEDS: Lithium Carbonate 300 MG CAPSULE 600 MG PO (08:30)
[2023-06-02] MEDS: clonazePAM 1 MG TABLET PO ×3 (08:31→20:29)
[2023-06-02] MEDS: Furosemide 20 MG TABLET PO (08:31)
[2023-06-02] MEDS: cloNIDine HCL 0.1 MG TABLET PO ×2 (08:31→14:53)
[2023-06-02] MEDS: Buprenorphine/Naloxone 2/0.5mg FILM 1 FILM SUBLINGUAL (08:32)
[2023-06-02] MEDS: Ondansetron ODT 4 MG TAB.RAPDIS TRANSLINGU (08:49)
[2023-06-02] MEDS: Nicotine Polacrilex 2 MG GUM 4 MG BUCCAL ×2 (10:44→18:31)
[2023-06-02] MEDS: Simethicone 80 MG TAB.CHEW PO (10:59)
--- NOTE | 2023-06-02 13:27 | P.PNPSI_ITS ---
Subjective Subjective Date of Service: 06/02/23 Reason For Visit: Crisis Interim History: calm, cooperative. very poor sleep last night, doesn't know why. perhaps the worst since his admission. denies restless legs, states he falls asleep OK but then is up every 45 minutes. agrees to increase prazosin again. per staff, pleasant, moderate anxiety. TV, some groups. poor sleep. high anxiety and depression. nightmares last NOC. broken sleep. Mental Status Exam Mental Status Exam Narrative: calm, cooperative. dressed in street clothes. adequately groomed. no PMA/PMR. speech nml rate, amount, loudness, tone, latency. no SI/SIBI/HI/AVH expressed. Diagnostics Vital Signs (24Hr): Vital Signs - 24 hr 06/01/23 14:06 06/01/23 20:45 06/02/23 08:09 Temperature 97.9 F 97.3 F Pulse Rate 82 88 78 Respiratory Rate 18 16 Blood Pressure 137/77 130/74 124/76 Pulse Oximetry 98 99 Oxygen Delivery Method Room Air Room Air BMI result Body Mass Index 35.9 Labs 05/25/23 16:29 05/27/23 12:42 Medications Medications Current Medications Acetaminophen (Acetaminophen 325 Mg Tablet) 650 mg PO Q6H PRN PRN Reason: Headache/Pain Mild Scale (1-3) Last Admin: 05/31/23 08:42 Dose: 650 mg Al Hydroxide/Mg Hydroxide (Magnesium Hydrox/Alum Hydrox 30 Ml Oral.Susp) 30 ml PO Q6H PRN PRN Reason: Heartburn/Nausea Last Admin: 06/01/23 11:00 Dose: 30 ml Albuterol Sulfate (Albuterol Sulfate 90 Mcg 8 Gm Inhaler) 2 puff INHALE Q4H PRN PRN Reason: Wheezing Last Admin: 06/02/23 06:12 Dose: 2 puff Buprenorphine/Naloxone (Buprenorphine/Naloxone 2/0.5mg Film) 1 film SUBLINGUAL DAILY [facility] Last Admin: 06/02/23 08:32 Dose: 1 film Chlorpromazine HCl (Chlorpromazine Hcl 25 Mg Tablet) 50 mg PO TID [facility] Last Admin: 06/02/23 08:29 Dose: 50 mg Clonazepam (Clonazepam 1 Mg Tablet) 1 mg PO TID [facility] Last Admin: 06/02/23 08:31 Dose: 1 mg Clonidine HCl (Clonidine Hcl 0.1 Mg Tablet) 0.1 mg PO BID@0900,1500 [facility]; Protocol Last Admin: 06/02/23 08:31 Dose: 0.1 mg Dicyclomine HCl (Dicyclomine Hcl 10 Mg Capsule) 10 mg PO QIDACHS PRN PRN Reason: stomach cramping Last Admin: 06/01/23 19:04 Dose: 10 mg Furosemide (Furosemide 20 Mg Tablet) 20 mg PO DAILY [facility]; Protocol Last Admin: 06/02/23 08:31 Dose: 20 mg Hydroxyzine HCl (Hydroxyzine Hcl 25 Mg Tablet) 25 mg PO Q6H PRN PRN Reason: Anxiety Last Admin: 06/02/23 05:40 Dose: 25 mg Levothyroxine Sodium (Levothyroxine Sodium 50 Mcg Tablet) 50 mcg PO DAILY@0600 [facility] Last Admin: 06/02/23 05:40 Dose: 50 mcg [place] Carbonate ([place] Carbonate Er 300 Mg Tablet.Er) 600 mg PO BEDTIME [facility] Last Admin: 06/01/23 20:54 Dose: 600 mg [place] Carbonate ([place] Carbonate 300 Mg Capsule) 600 mg PO DAILY [facility] Last Admin: 06/02/23 08:30 Dose: 600 mg Magnesium Hydroxide (Milk Of Magnesia 30 Ml Oral.Susp) 30 ml PO DAILY PRN PRN Reason: Constipation Metformin HCl (Metformin Hcl 500 Mg Tablet) 500 mg PO DAILY [facility] Last Admin: 06/02/23 08:30 Dose: 500 mg Nicotine Polacrilex (Nicotine Polacrilex 2 Mg Gum) 4 mg BUCCAL Q2H PRN PRN Reason: Nicotine Cravings Last Admin: 06/02/23 10:44 Dose: 4 mg Omeprazole (Omeprazole 20 Mg Capsule.Dr) 20 mg PO DAILY@0630 [facility] Last Admin: 06/02/23 06:50 Dose: 20 mg Ondansetron HCl (Ondansetron Odt 4 Mg Tab.Rapdis) 4 mg TRANSLINGU Q8H PRN PRN Reason: Nausea Last Admin: 06/02/23 08:49 Dose: 4 mg Ondansetron HCl (Ondansetron Odt 4 Mg Tab.Rapdis) 4 mg TRANSLINGU Q8H PRN PRN Reason: Nausea Prazosin HCl (Prazosin Hcl 1 Mg Capsule) 4 mg PO BEDTIME [facility]; Protocol Quetiapine Fumarate (Quetiapine Fumarate 300 Mg Tablet) 300 mg PO DAILY [facility] Last Admin: 06/02/23 08:30 Dose: 300 mg Quetiapine Fumarate (Quetiapine Fumarate 300 Mg Tablet) 300 mg PO BEDTIME [facility] Last Admin: 06/01/23 20:54 Dose: 300 mg Rivaroxaban (Rivaroxaban 10 Mg Tablet) 10 mg PO DAILY@1700 [facility] Last Admin: 06/01/23 16:51 Dose: 10 mg Simethicone (Simethicone 80 Mg Tab.Chew) 80 mg PO QIDWMHS PRN PRN Reason: stomach pain Last Admin: 06/02/23 10:59 Dose: 80 mg Trazodone HCl (Trazodone Hcl 50 Mg Tablet) 50 mg PO BEDTIME MRX1 PRN PRN Reason: Insomnia Last Admin: 06/02/23 00:36 Dose: 50 mg Allergies Allergies Allergy/AdvReac Type Severity Reaction Status Date / Time phenytoin [From DILANTIN] Allergy Unknown UNKNOWN Verified 05/25/23 11:18 venlafaxine [From EFFEXOR] Allergy Unknown UNKNOWN Verified 05/25/23 11:18 Dilantin Allergy Unknown Unknown Uncoded 05/25/23 11:18 Effexor Allergy Unknown Unknown Uncoded 05/25/23 11:18 MEDICAL TAPE Allergy Unknown UNKNOWN Uncoded 06/06/20 15:26 Assessment & Plan Assessment & Plan (1) Bipolar I disorder with mixed features: Status: Acute Code(s): F31.9 - Bipolar disorder, unspecified (2) PTSD (post-traumatic stress disorder): Status: Acute Code(s): F43.10 - Post-traumatic stress disorder, unspecified (3) Cocaine use disorder: Status: Acute Code(s): F14.10 - Cocaine abuse, uncomplicated (4) Alcohol use disorder: Status: Acute Code(s): F10.90 - Alcohol use, unspecified, uncomplicated (5) History of seizure: Status: Acute Code(s): Z87.898 - Personal history of other specified conditions (6) Diabetes mellitus: Qualifiers: Diabetes mellitus type: type 2 Diabetes mellitus complication status: w ithout complication Status: Acute Code(s): E11.9 - Type 2 diabetes mellitus without complications Plan 05/27: restart home medications. add clonidine 0.1/0.1/0.2 for BP and nightmares and insomnia in PTSD. 05/28: c/o nightmares and insomnia. increase HS clonidine dosing to 0.3 mg. otherwise continue current mgmt. 05/29/2023: Add Seroquel 100 mg at bedtime 05/30: increase Seroquel at bedtime to 200mg, also add prazosin and DC clonidine at bedtime. Will also order lithium level. 05/31: slept better, no nightmares. increase seroquel at HS to 300 mg. declines to DC thorazine. looking into CSS/sober houses. 06/01: lithium level 0.48. increase lithium dosing to 1200 mg daily. nightmare last night but otherwise slept well. looking into CSS. 06/02: very poor sleep, with nightmares. increase prazosin to 4 mg tonight, otherwise continue current mgmt. Reason for continued inpatient stay Substantial Risk for: inability to function and rapid decompensation Time Spent With Patient Time: Total time managing care of this patient today _25___ minutes.
[2023-06-02 14:50] VITALS: BP 124/70; PULSE 97
[2023-06-02] MEDS: Rivaroxaban 10 MG TABLET PO (17:26)
[2023-06-02 19:55] VITALS: BP 126/73; PULSE 88; RESP 18; TEMP 36.3; O2SAT 98
[2023-06-02] MEDS: Lithium Carbonate ER 300 MG TABLET.ER 600 MG PO (20:28)
[2023-06-02] MEDS: Prazosin HCL 1 MG CAPSULE 4 MG PO (20:30)
[2023-06-03] MEDS: hydrOXYzine HCL 25 MG TABLET PO ×2 (00:21→20:30)
[2023-06-03] MEDS: Levothyroxine Sodium 50 MCG TABLET PO (06:21)
[2023-06-03] MEDS: Omeprazole 20 MG CAPSULE.DR PO (06:45)
[2023-06-03 07:00] VITALS: BMI 38.3
[2023-06-03 08:01] VITALS: BP 114/71; PULSE 83; RESP 16; TEMP 36.3; O2SAT 99
[2023-06-03] MEDS: chlorproMAZINE HCl 25 MG TABLET 50 MG PO ×3 (08:11→20:30)
[2023-06-03] MEDS: Lithium Carbonate 300 MG CAPSULE 600 MG PO (08:11)
[2023-06-03] MEDS: Furosemide 20 MG TABLET PO (08:11)
[2023-06-03] MEDS: QUEtiapine Fumarate 300 MG TABLET PO ×2 (08:12→20:30)
[2023-06-03] MEDS: clonazePAM 1 MG TABLET PO ×3 (08:12→20:31)
[2023-06-03] MEDS: metFORMIN HCl 500 MG TABLET PO (08:12)
[2023-06-03] MEDS: cloNIDine HCL 0.1 MG TABLET PO ×2 (08:13→14:10)
[2023-06-03] MEDS: Buprenorphine/Naloxone 2/0.5mg FILM 1 FILM SUBLINGUAL (08:35)
[2023-06-03 09:32] LABS: Creatinine Clr Calc Pharmacy 101.9; Estimated Glomerular Filt Rate > 60
[2023-06-03] MEDS: Acetaminophen 325 MG TABLET 650 MG PO (10:55)
[2023-06-03] MEDS: Nicotine Polacrilex 2 MG GUM 4 MG BUCCAL ×2 (10:55→13:49)
--- NOTE | 2023-06-03 12:45 | P.PNPSI_ITS ---
Subjective Subjective Date of Service: 06/03/23 Reason For Visit: Crisis Interim History: calm, cooperative. slept well last night, no nightmares. happy with current regimen. will check labs wednesday. per staff, slept well last NOC. friendly, social, attending groups. dep 7, anx 5. Mental Status Exam Mental Status Exam Narrative: calm, cooperative. dressed in street clothes. adequately groomed. no PMA/PMR. speech nml rate, amount, loudness, tone, latency. no SI/SIBI/HI/AVH expressed. Diagnostics Vital Signs (24Hr): Vital Signs - 24 hr 06/02/23 14:50 06/02/23 19:55 06/03/23 08:01 Temperature 97.3 F 97.3 F Pulse Rate 97 88 83 Respiratory Rate 18 16 Blood Pressure 124/70 126/73 114/71 Pulse Oximetry 98 99 Oxygen Delivery Method Room Air Room Air BMI result Body Mass Index 38.3 Labs 05/25/23 16:29 06/03/23 08:26 Labs: Laboratory Results - last 48 hr 06/03/23 08:26 Creatinine 1.19 Estim Creat Clear Calc 101.9 Estimated GFR > 60 Medications Medications Current Medications Acetaminophen (Acetaminophen 325 Mg Tablet) 650 mg PO Q6H PRN PRN Reason: Headache/Pain Mild Scale (1-3) Last Admin: 06/03/23 10:55 Dose: 650 mg Al Hydroxide/Mg Hydroxide (Magnesium Hydrox/Alum Hydrox 30 Ml Oral.Susp) 30 ml PO Q6H PRN PRN Reason: Heartburn/Nausea Last Admin: 06/01/23 11:00 Dose: 30 ml Albuterol Sulfate (Albuterol Sulfate 90 Mcg 8 Gm Inhaler) 2 puff INHALE Q4H PRN PRN Reason: Wheezing Last Admin: 06/02/23 06:12 Dose: 2 puff Buprenorphine/Naloxone (Buprenorphine/Naloxone 2/0.5mg Film) 1 film SUBLINGUAL DAILY [facility] Last Admin: 06/03/23 08:35 Dose: 1 film Chlorpromazine HCl (Chlorpromazine Hcl 25 Mg Tablet) 50 mg PO TID [facility] Last Admin: 06/03/23 08:11 Dose: 50 mg Clonazepam (Clonazepam 1 Mg Tablet) 1 mg PO TID [facility] Last Admin: 06/03/23 08:12 Dose: 1 mg Clonidine HCl (Clonidine Hcl 0.1 Mg Tablet) 0.1 mg PO BID@0900,1500 [facility]; Protocol Last Admin: 06/03/23 08:13 Dose: 0.1 mg Dicyclomine HCl (Dicyclomine Hcl 10 Mg Capsule) 10 mg PO QIDACHS PRN PRN Reason: stomach cramping Last Admin: 06/01/23 19:04 Dose: 10 mg Furosemide (Furosemide 20 Mg Tablet) 20 mg PO DAILY [facility]; Protocol Last Admin: 06/03/23 08:11 Dose: 20 mg Hydroxyzine HCl (Hydroxyzine Hcl 25 Mg Tablet) 25 mg PO Q6H PRN PRN Reason: Anxiety Last Admin: 06/03/23 00:21 Dose: 25 mg Levothyroxine Sodium (Levothyroxine Sodium 50 Mcg Tablet) 50 mcg PO DAILY@0600 [facility] Last Admin: 06/03/23 06:21 Dose: 50 mcg [place] Carbonate ([place] Carbonate Er 300 Mg Tablet.Er) 600 mg PO BEDTIME [facility] Last Admin: 06/02/23 20:28 Dose: 600 mg [place] Carbonate ([place] Carbonate 300 Mg Capsule) 600 mg PO DAILY [facility] Last Admin: 06/03/23 08:11 Dose: 600 mg Magnesium Hydroxide (Milk Of Magnesia 30 Ml Oral.Susp) 30 ml PO DAILY PRN PRN Reason: Constipation Metformin HCl (Metformin Hcl 500 Mg Tablet) 500 mg PO DAILY [facility] Last Admin: 06/03/23 08:12 Dose: 500 mg Nicotine Polacrilex (Nicotine Polacrilex 2 Mg Gum) 4 mg BUCCAL Q2H PRN PRN Reason: Nicotine Cravings Last Admin: 06/03/23 10:55 Dose: 4 mg Omeprazole (Omeprazole 20 Mg Capsule.Dr) 20 mg PO DAILY@0630 [facility] Last Admin: 06/03/23 06:45 Dose: 20 mg Ondansetron HCl (Ondansetron Odt 4 Mg Tab.Rapdis) 4 mg TRANSLINGU Q8H PRN PRN Reason: Nausea Last Admin: 06/02/23 08:49 Dose: 4 mg Ondansetron HCl (Ondansetron Odt 4 Mg Tab.Rapdis) 4 mg TRANSLINGU Q8H PRN PRN Reason: Nausea Prazosin HCl (Prazosin Hcl 1 Mg Capsule) 4 mg PO BEDTIME [facility]; Protocol Last Admin: 06/02/23 20:30 Dose: 4 mg Quetiapine Fumarate (Quetiapine Fumarate 300 Mg Tablet) 300 mg PO DAILY [facility] Last Admin: 06/03/23 08:12 Dose: 300 mg Quetiapine Fumarate (Quetiapine Fumarate 300 Mg Tablet) 300 mg PO BEDTIME [facility] Last Admin: 06/02/23 20:28 Dose: 300 mg Rivaroxaban (Rivaroxaban 10 Mg Tablet) 10 mg PO DAILY@1700 [facility] Last Admin: 06/02/23 17:26 Dose: 10 mg Simethicone (Simethicone 80 Mg Tab.Chew) 80 mg PO QIDWMHS PRN PRN Reason: stomach pain Last Admin: 06/02/23 10:59 Dose: 80 mg Trazodone HCl (Trazodone Hcl 50 Mg Tablet) 50 mg PO BEDTIME MRX1 PRN PRN Reason: Insomnia Last Admin: 06/02/23 21:18 Dose: 50 mg Allergies Allergies Allergy/AdvReac Type Severity Reaction Status Date / Time phenytoin [From DILANTIN] Allergy Unknown UNKNOWN Verified 05/25/23 11:18 venlafaxine [From EFFEXOR] Allergy Unknown UNKNOWN Verified 05/25/23 11:18 Dilantin Allergy Unknown Unknown Uncoded 05/25/23 11:18 Effexor Allergy Unknown Unknown Uncoded 05/25/23 11:18 MEDICAL TAPE Allergy Unknown UNKNOWN Uncoded 06/06/20 15:26 Assessment & Plan Assessment & Plan (1) Bipolar I disorder with mixed features: Status: Acute Code(s): F31.9 - Bipolar disorder, unspecified (2) PTSD (post-traumatic stress disorder): Status: Acute Code(s): F43.10 - Post-traumatic stress disorder, unspecified (3) Cocaine use disorder: Status: Acute Code(s): F14.10 - Cocaine abuse, uncomplicated (4) Alcohol use disorder: Status: Acute Code(s): F10.90 - Alcohol use, unspecified, uncomplicated (5) History of seizure: Status: Acute Code(s): Z87.898 - Personal history of other specified conditions (6) Diabetes mellitus: Qualifiers: Diabetes mellitus type: type 2 Diabetes mellitus complication status: w ithout complication Status: Acute Code(s): E11.9 - Type 2 diabetes mellitus without complications Plan 05/27: restart home medications. add clonidine 0.1/0.1/0.2 for BP and nightmares and insomnia in PTSD. 05/28: c/o nightmares and insomnia. increase HS clonidine dosing to 0.3 mg. otherwise continue current mgmt. 05/29/2023: Add Seroquel 100 mg at bedtime 05/30: increase Seroquel at bedtime to 200mg, also add prazosin and DC clonidine at bedtime. Will also order lithium level. 05/31: slept better, no nightmares. increase seroquel at HS to 300 mg. declines to DC thorazine. looking into CSS/sober houses. 06/01: lithium level 0.48. increase lithium dosing to 1200 mg daily. nightmare last night but otherwise slept well. looking into CSS. 06/02: very poor sleep, with nightmares. increase prazosin to 4 mg tonight, otherwise continue current mgmt. 06/03: slept well, no nightmares. check labs wednesday, including lithium level (ordered). continue current mgmt. Reason for continued inpatient stay Substantial Risk for: inability to function and rapid decompensation Time Spent With Patient Time: Total time managing care of this patient today _25___ minutes.
[2023-06-03 14:06] VITALS: BP 140/80; PULSE 97
[2023-06-03] MEDS: Rivaroxaban 10 MG TABLET PO (16:07)
[2023-06-03 19:55] VITALS: BP 141/76; PULSE 90; RESP 18; TEMP 36.3; O2SAT 97
[2023-06-03] MEDS: Lithium Carbonate ER 300 MG TABLET.ER 600 MG PO (20:30)
[2023-06-03] MEDS: Prazosin HCL 1 MG CAPSULE 4 MG PO (20:30)
[2023-06-03] MEDS: traZODone HCL 50 MG TABLET PO ×2 (21:26→21:59)
[2023-06-04] MEDS: hydrOXYzine HCL 25 MG TABLET PO (03:25)
[2023-06-04] MEDS: Dicyclomine HCl 10 MG CAPSULE PO (07:50)
[2023-06-04 07:55] VITALS: BP 126/76; PULSE 83; RESP 16; TEMP 36.2; O2SAT 100
[2023-06-04] MEDS: cloNIDine HCL 0.1 MG TABLET PO ×2 (08:09→14:04)
[2023-06-04] MEDS: QUEtiapine Fumarate 300 MG TABLET PO ×2 (08:09→20:25)
[2023-06-04] MEDS: metFORMIN HCl 500 MG TABLET PO (08:09)
[2023-06-04] MEDS: chlorproMAZINE HCl 25 MG TABLET 50 MG PO ×3 (08:09→20:25)
[2023-06-04] MEDS: Furosemide 20 MG TABLET PO (08:10)
[2023-06-04] MEDS: clonazePAM 1 MG TABLET PO ×3 (08:10→20:25)
[2023-06-04] MEDS: Lithium Carbonate 300 MG CAPSULE 600 MG PO (08:10)
[2023-06-04] MEDS: Buprenorphine/Naloxone 2/0.5mg FILM 1 FILM SUBLINGUAL (09:11)
--- NOTE | 2023-06-04 12:56 | HO.PSYCHPN ---
Subjective Subjective Date of Service: 06/04/23 Reason For Visit: Crisis Subjective Notes: Conditional Voluntary Interim History: Pt reports sleeping better but still interrupted. He asked for additional 100mg of seroquel prn. Pt denies SI/HI. He reports being very motivated to continue recovery. Visible on the unit and attends groups. No behavioral concerns. Review of Systems Review of Systems Unremarkable Yes all other systems are reviewed and are negative Constitutional: Reports as per HPI Mental Status Exam Mental Status Exam Narrative: calm, cooperative. dressed in street clothes. adequately groomed. no PMA/PMR. speech nml rate, amount, loudness, tone, latency. no SI/SIBI/HI/AVH expressed. Diagnostics Vital Signs (24Hr): Vital Signs - 24 hr 06/03/23 14:06 06/03/23 19:55 Temperature 97.3 F Pulse Rate 97 90 Respiratory Rate 18 Blood Pressure 140/80 H 141/76 H Pulse Oximetry 97 Oxygen Delivery Method Room Air BMI result Body Mass Index 38.3 Labs 05/25/23 16:29 06/03/23 08:26 Labs: Laboratory Results - last 48 hr 06/03/23 08:26 Creatinine 1.19 Estim Creat Clear Calc 101.9 Estimated GFR > 60 Medications Medications Current Medications Acetaminophen (Acetaminophen 325 Mg Tablet) 650 mg PO Q6H PRN PRN Reason: Headache/Pain Mild Scale (1-3) Last Admin: 06/03/23 10:55 Dose: 650 mg Al Hydroxide/Mg Hydroxide (Magnesium Hydrox/Alum Hydrox 30 Ml Oral.Susp) 30 ml PO Q6H PRN PRN Reason: Heartburn/Nausea Last Admin: 06/01/23 11:00 Dose: 30 ml Albuterol Sulfate (Albuterol Sulfate 90 Mcg 8 Gm Inhaler) 2 puff INHALE Q4H PRN PRN Reason: Wheezing Last Admin: 06/02/23 06:12 Dose: 2 puff Buprenorphine/Naloxone (Buprenorphine/Naloxone 2/0.5mg Film) 1 film SUBLINGUAL DAILY [facility] Last Admin: 06/04/23 09:11 Dose: 1 film Chlorpromazine HCl (Chlorpromazine Hcl 25 Mg Tablet) 50 mg PO TID [facility] Last Admin: 06/04/23 08:09 Dose: 50 mg Clonazepam (Clonazepam 1 Mg Tablet) 1 mg PO TID [facility] Last Admin: 06/04/23 08:10 Dose: 1 mg Clonidine HCl (Clonidine Hcl 0.1 Mg Tablet) 0.1 mg PO BID@0900,1500 [facility]; Protocol Last Admin: 06/04/23 08:09 Dose: 0.1 mg Dicyclomine HCl (Dicyclomine Hcl 10 Mg Capsule) 10 mg PO QIDACHS PRN PRN Reason: stomach cramping Last Admin: 06/04/23 07:50 Dose: 10 mg Furosemide (Furosemide 20 Mg Tablet) 20 mg PO DAILY [facility]; Protocol Last Admin: 06/04/23 08:10 Dose: 20 mg Hydroxyzine HCl (Hydroxyzine Hcl 25 Mg Tablet) 25 mg PO Q6H PRN PRN Reason: Anxiety Last Admin: 06/04/23 03:25 Dose: 25 mg Levothyroxine Sodium (Levothyroxine Sodium 50 Mcg Tablet) 50 mcg PO DAILY@0600 [facility] Last Admin: 06/03/23 06:21 Dose: 50 mcg [place] Carbonate ([place] Carbonate Er 300 Mg Tablet.Er) 600 mg PO BEDTIME [facility] Last Admin: 06/03/23 20:30 Dose: 600 mg [place] Carbonate ([place] Carbonate 300 Mg Capsule) 600 mg PO DAILY [facility] Last Admin: 06/04/23 08:10 Dose: 600 mg Magnesium Hydroxide (Milk Of Magnesia 30 Ml Oral.Susp) 30 ml PO DAILY PRN PRN Reason: Constipation Metformin HCl (Metformin Hcl 500 Mg Tablet) 500 mg PO DAILY [facility] Last Admin: 06/04/23 08:09 Dose: 500 mg Nicotine Polacrilex (Nicotine Polacrilex 2 Mg Gum) 4 mg BUCCAL Q2H PRN PRN Reason: Nicotine Cravings Last Admin: 06/03/23 13:49 Dose: 4 mg Omeprazole (Omeprazole 20 Mg Capsule.Dr) 20 mg PO DAILY@0630 [facility] Last Admin: 06/03/23 06:45 Dose: 20 mg Ondansetron HCl (Ondansetron Odt 4 Mg Tab.Rapdis) 4 mg TRANSLINGU Q8H PRN PRN Reason: Nausea Last Admin: 06/02/23 08:49 Dose: 4 mg Ondansetron HCl (Ondansetron Odt 4 Mg Tab.Rapdis) 4 mg TRANSLINGU Q8H PRN PRN Reason: Nausea Prazosin HCl (Prazosin Hcl 1 Mg Capsule) 4 mg PO BEDTIME [facility]; Protocol Last Admin: 06/03/23 20:30 Dose: 4 mg Quetiapine Fumarate (Quetiapine Fumarate 300 Mg Tablet) 300 mg PO DAILY [facility] Last Admin: 06/04/23 08:09 Dose: 300 mg Quetiapine Fumarate (Quetiapine Fumarate 300 Mg Tablet) 300 mg PO BEDTIME [facility] Last Admin: 06/03/23 20:30 Dose: 300 mg Rivaroxaban (Rivaroxaban 10 Mg Tablet) 10 mg PO DAILY@1700 [facility] Last Admin: 06/03/23 16:07 Dose: 10 mg Simethicone (Simethicone 80 Mg Tab.Chew) 80 mg PO QIDWMHS PRN PRN Reason: stomach pain Last Admin: 06/02/23 10:59 Dose: 80 mg Trazodone HCl (Trazodone Hcl 50 Mg Tablet) 50 mg PO BEDTIME MRX1 PRN PRN Reason: Insomnia Last Admin: 06/03/23 21:59 Dose: 50 mg Allergies Allergies Allergy/AdvReac Type Severity Reaction Status Date / Time phenytoin [From DILANTIN] Allergy Unknown UNKNOWN Verified 05/25/23 11:18 venlafaxine [From EFFEXOR] Allergy Unknown UNKNOWN Verified 05/25/23 11:18 Dilantin Allergy Unknown Unknown Uncoded 05/25/23 11:18 Effexor Allergy Unknown Unknown Uncoded 05/25/23 11:18 MEDICAL TAPE Allergy Unknown UNKNOWN Uncoded 06/06/20 15:26 Assessment & Plan Assessment & Plan (1) Bipolar I disorder with mixed features: Status: Acute Code(s): F31.9 - Bipolar disorder, unspecified (2) PTSD (post-traumatic stress disorder): Status: Acute Code(s): F43.10 - Post-traumatic stress disorder, unspecified (3) Cocaine use disorder: Status: Acute Code(s): F14.10 - Cocaine abuse, uncomplicated (4) Alcohol use disorder: Status: Acute Code(s): F10.90 - Alcohol use, unspecified, uncomplicated (5) History of seizure: Status: Acute Code(s): Z87.898 - Personal history of other specified conditions (6) Diabetes mellitus: Qualifiers: Diabetes mellitus complication status: without complication Diabetes mellitus type: type 2 Status: Acute Code(s): E11.9 - Type 2 diabetes mellitus without complications Plan 05/27: restart home medications. add clonidine 0.1/0.1/0.2 for BP and nightmares and insomnia in PTSD. 05/28: c/o nightmares and insomnia. increase HS clonidine dosing to 0.3 mg. otherwise continue current mgmt. 05/29/2023: Add Seroquel 100 mg at bedtime 05/30: increase Seroquel at bedtime to 200mg, also add prazosin and DC clonidine at bedtime. Will also order lithium level. 05/31: slept better, no nightmares. increase seroquel at HS to 300 mg. declines to DC thorazine. looking into CSS/sober houses. 06/01: lithium level 0.48. increase lithium dosing to 1200 mg daily. nightmare last night but otherwise slept well. looking into CSS. 06/02: very poor sleep, with nightmares. increase prazosin to 4 mg tonight, otherwise continue current mgmt. 06/03: slept well, no nightmares. check labs wednesday, including lithium level (ordered). continue current mgmt. 06/04 reports still broken sleep. added seroquel 100mg po prn qhs- however he is a lot of sedating meds, may benefit from sleep study if still struggling with sleep. Reason for continued inpatient stay Substantial Risk for: harm to self Time Spent With Patient Time: Total time managing care of this patient today ____ minutes.
[2023-06-04 14:15] VITALS: BP 121/71; PULSE 76
[2023-06-04] MEDS: Nicotine Polacrilex 2 MG GUM 4 MG BUCCAL (14:55)
[2023-06-04] MEDS: Rivaroxaban 10 MG TABLET PO (17:25)
[2023-06-04 20:15] VITALS: BP 144/80; PULSE 94; RESP 18; TEMP 36.3; O2SAT 97
[2023-06-04] MEDS: Prazosin HCL 1 MG CAPSULE 4 MG PO (20:25)
[2023-06-04] MEDS: Lithium Carbonate ER 300 MG TABLET.ER 600 MG PO (20:26)
[2023-06-04] MEDS: traZODone HCL 50 MG TABLET PO (21:23)
[2023-06-05] MEDS: Simethicone 80 MG TAB.CHEW PO (04:27)
[2023-06-05] MEDS: Dicyclomine HCl 10 MG CAPSULE PO (04:27)
[2023-06-05] MEDS: Acetaminophen 325 MG TABLET 650 MG PO (05:07)
[2023-06-05] MEDS: Levothyroxine Sodium 50 MCG TABLET PO (06:46)
[2023-06-05 08:00] VITALS: BP 126/72; PULSE 83; RESP 16; TEMP 36.7; O2SAT 99
[2023-06-05] MEDS: polyethylene glycoL 3350 17 GM POWD.PACK PO (08:09)
[2023-06-05] MEDS: metFORMIN HCl 500 MG TABLET PO (08:10)
[2023-06-05] MEDS: clonazePAM 1 MG TABLET PO ×2 (08:10→14:15)
[2023-06-05] MEDS: Omeprazole 20 MG CAPSULE.DR PO (08:10)
[2023-06-05] MEDS: Furosemide 20 MG TABLET PO (08:11)
[2023-06-05] MEDS: Lithium Carbonate 300 MG CAPSULE 600 MG PO (08:11)
[2023-06-05] MEDS: chlorproMAZINE HCl 25 MG TABLET 50 MG PO ×3 (08:11→20:49)
[2023-06-05] MEDS: cloNIDine HCL 0.1 MG TABLET PO ×2 (08:11→14:15)
[2023-06-05] MEDS: QUEtiapine Fumarate 300 MG TABLET PO ×2 (08:11→20:49)
[2023-06-05] MEDS: Buprenorphine/Naloxone 2/0.5mg FILM 1 FILM SUBLINGUAL (08:35)
[2023-06-05] MEDS: Albuterol Sulfate 90 MCG 8 GM INHALER 2 PUFF INHALE ×2 (09:22→18:28)
[2023-06-05] MEDS: Rivaroxaban 10 MG TABLET PO (17:43)
--- NOTE | 2023-06-05 20:06 | HO.PSYCHPN ---
Subjective Subjective Date of Service: 06/05/23 Reason For Visit: Crisis Subjective Notes: Conditional Voluntary Interim History: Pt appears very somnolent during the day, but when asked he denies. He denies SI/HI. He has been in bed, taking a nap. He is pleasant on approach. No behavioral concerns. Medication Compliance: Yes Review of Systems Review of Systems Unremarkable Yes all other systems are reviewed and are negative Constitutional: Reports as per HPI Mental Status Exam Mental Status Exam Narrative: calm, cooperative. dressed in street clothes. adequately groomed. no PMA/PMR. speech nml rate, amount, loudness, tone, latency. no SI/SIBI/HI/AVH expressed. Diagnostics Vital Signs (24Hr): Vital Signs - 24 hr 06/04/23 20:15 06/05/23 08:00 Temperature 97.4 F 98.1 F Pulse Rate 94 83 Respiratory Rate 18 16 Blood Pressure 144/80 H 126/72 Pulse Oximetry 97 99 Oxygen Delivery Method Room Air Room Air BMI result Body Mass Index 38.3 Labs 05/25/23 16:29 06/03/23 08:26 Medications Medications Current Medications Acetaminophen (Acetaminophen 325 Mg Tablet) 650 mg PO Q6H PRN PRN Reason: Headache/Pain Mild Scale (1-3) Last Admin: 06/05/23 05:07 Dose: 650 mg Al Hydroxide/Mg Hydroxide (Magnesium Hydrox/Alum Hydrox 30 Ml Oral.Susp) 30 ml PO Q6H PRN PRN Reason: Heartburn/Nausea Last Admin: 06/01/23 11:00 Dose: 30 ml Albuterol Sulfate (Albuterol Sulfate 90 Mcg 8 Gm Inhaler) 2 puff INHALE Q4H PRN PRN Reason: Wheezing Last Admin: 06/05/23 18:28 Dose: 2 puff Buprenorphine/Naloxone (Buprenorphine/Naloxone 2/0.5mg Film) 1 film SUBLINGUAL DAILY [facility] Last Admin: 06/05/23 08:35 Dose: 1 film Chlorpromazine HCl (Chlorpromazine Hcl 25 Mg Tablet) 50 mg PO TID [facility] Last Admin: 06/05/23 14:15 Dose: 50 mg Clonidine HCl (Clonidine Hcl 0.1 Mg Tablet) 0.1 mg PO BID@0900,1500 [facility]; Protocol Last Admin: 06/05/23 14:15 Dose: 0.1 mg Dicyclomine HCl (Dicyclomine Hcl 10 Mg Capsule) 10 mg PO QIDACHS PRN PRN Reason: stomach cramping Last Admin: 06/05/23 04:27 Dose: 10 mg Furosemide (Furosemide 20 Mg Tablet) 20 mg PO DAILY [facility]; Protocol Last Admin: 06/05/23 08:11 Dose: 20 mg Hydroxyzine HCl (Hydroxyzine Hcl 25 Mg Tablet) 25 mg PO Q6H PRN PRN Reason: Anxiety Last Admin: 06/04/23 03:25 Dose: 25 mg Levothyroxine Sodium (Levothyroxine Sodium 50 Mcg Tablet) 50 mcg PO DAILY@0600 [facility] Last Admin: 06/05/23 06:46 Dose: 50 mcg [place] Carbonate ([place] Carbonate Er 300 Mg Tablet.Er) 600 mg PO BEDTIME [facility] Last Admin: 06/04/23 20:26 Dose: 600 mg [place] Carbonate ([place] Carbonate 300 Mg Capsule) 600 mg PO DAILY [facility] Last Admin: 06/05/23 08:11 Dose: 600 mg Magnesium Hydroxide (Milk Of Magnesia 30 Ml Oral.Susp) 30 ml PO DAILY PRN PRN Reason: Constipation Metformin HCl (Metformin Hcl 500 Mg Tablet) 500 mg PO DAILY [facility] Last Admin: 06/05/23 08:10 Dose: 500 mg Nicotine Polacrilex (Nicotine Polacrilex 2 Mg Gum) 4 mg BUCCAL Q2H PRN PRN Reason: Nicotine Cravings Last Admin: 06/04/23 14:55 Dose: 4 mg Omeprazole (Omeprazole 20 Mg Capsule.Dr) 20 mg PO DAILY@0630 [facility] Last Admin: 06/05/23 08:10 Dose: 20 mg Ondansetron HCl (Ondansetron Odt 4 Mg Tab.Rapdis) 4 mg TRANSLINGU Q8H PRN PRN Reason: Nausea Last Admin: 06/02/23 08:49 Dose: 4 mg Ondansetron HCl (Ondansetron Odt 4 Mg Tab.Rapdis) 4 mg TRANSLINGU Q8H PRN PRN Reason: Nausea Polyethylene Glycol (Polyethylene Glycol 3350 17 Gm Powd.Pack) 17 gm PO DAILY [facility] Last Admin: 06/05/23 08:09 Dose: 17 gm Prazosin HCl (Prazosin Hcl 1 Mg Capsule) 4 mg PO BEDTIME [facility]; Protocol Last Admin: 06/04/23 20:25 Dose: 4 mg Quetiapine Fumarate (Quetiapine Fumarate 300 Mg Tablet) 300 mg PO DAILY [facility] Last Admin: 06/05/23 08:11 Dose: 300 mg Quetiapine Fumarate (Quetiapine Fumarate 300 Mg Tablet) 300 mg PO BEDTIME [facility] Last Admin: 06/04/23 20:25 Dose: 300 mg Quetiapine Fumarate (Quetiapine Fumarate 100 Mg Tablet) 100 mg PO DAILY PRN PRN Reason: sleep/anxiety Rivaroxaban (Rivaroxaban 10 Mg Tablet) 10 mg PO DAILY@1700 [facility] Last Admin: 06/05/23 17:43 Dose: 10 mg Simethicone (Simethicone 80 Mg Tab.Chew) 80 mg PO QIDWMHS PRN PRN Reason: stomach pain Last Admin: 06/05/23 04:27 Dose: 80 mg Trazodone HCl (Trazodone Hcl 50 Mg Tablet) 50 mg PO BEDTIME PRN PRN Reason: Insomnia Last Admin: 06/04/23 21:23 Dose: 50 mg Allergies Allergies Allergy/AdvReac Type Severity Reaction Status Date / Time phenytoin [From DILANTIN] Allergy Unknown UNKNOWN Verified 05/25/23 11:18 venlafaxine [From EFFEXOR] Allergy Unknown UNKNOWN Verified 05/25/23 11:18 Dilantin Allergy Unknown Unknown Uncoded 05/25/23 11:18 Effexor Allergy Unknown Unknown Uncoded 05/25/23 11:18 MEDICAL TAPE Allergy Unknown UNKNOWN Uncoded 06/06/20 15:26 Assessment & Plan Assessment & Plan (1) Bipolar I disorder with mixed features: Status: Acute Code(s): F31.9 - Bipolar disorder, unspecified (2) PTSD (post-traumatic stress disorder): Status: Acute Code(s): F43.10 - Post-traumatic stress disorder, unspecified (3) Cocaine use disorder: Status: Acute Code(s): F14.10 - Cocaine abuse, uncomplicated (4) Alcohol use disorder: Status: Acute Code(s): F10.90 - Alcohol use, unspecified, uncomplicated (5) History of seizure: Status: Acute Code(s): Z87.898 - Personal history of other specified conditions (6) Diabetes mellitus: Qualifiers: Diabetes mellitus complication status: without complication Diabetes mellitus type: type 2 Status: Acute Code(s): E11.9 - Type 2 diabetes mellitus without complications Plan 05/27: restart home medications. add clonidine 0.1/0.1/0.2 for BP and nightmares and insomnia in PTSD. 05/28: c/o nightmares and insomnia. increase HS clonidine dosing to 0.3 mg. otherwise continue current mgmt. 05/29/2023: Add Seroquel 100 mg at bedtime 05/30: increase Seroquel at bedtime to 200mg, also add prazosin and DC clonidine at bedtime. Will also order lithium level. 05/31: slept better, no nightmares. increase seroquel at HS to 300 mg. declines to DC thorazine. looking into CSS/sober houses. 06/01: lithium level 0.48. increase lithium dosing to 1200 mg daily. nightmare last night but otherwise slept well. looking into CSS. 06/02: very poor sleep, with nightmares. increase prazosin to 4 mg tonight, otherwise continue current mgmt. 06/03: slept well, no nightmares. check labs wednesday, including lithium level (ordered). continue current mgmt. 06/04 reports still broken sleep. added seroquel 100mg po prn qhs- however he is a lot of sedating meds, may benefit from sleep study if still struggling with sleep. 06/05 appears overmedicated during the day. no si/hi. Reason for continued inpatient stay Substantial Risk for: inability to function Time Spent With Patient Time: Total time managing care of this patient today ____ minutes.
[2023-06-05 20:30] VITALS: BP 118/78; PULSE 88; RESP 18; TEMP 36.4; O2SAT 98
[2023-06-05] MEDS: Lithium Carbonate ER 300 MG TABLET.ER 600 MG PO (20:49)
[2023-06-05] MEDS: Prazosin HCL 1 MG CAPSULE 4 MG PO (20:49)
[2023-06-05] MEDS: traZODone HCL 50 MG TABLET PO (21:54)
[2023-06-06] MEDS: QUEtiapine Fumarate 100 MG TABLET PO (01:20)
[2023-06-06] MEDS: Acetaminophen 325 MG TABLET 650 MG PO (06:32)
[2023-06-06] MEDS: Levothyroxine Sodium 50 MCG TABLET PO ×2 (06:32→06:35)
[2023-06-06 08:00] VITALS: BP 121/70; PULSE 80; RESP 16; TEMP 36.5; O2SAT 98
[2023-06-06] MEDS: polyethylene glycoL 3350 17 GM POWD.PACK PO (08:05)
[2023-06-06] MEDS: Lithium Carbonate 300 MG CAPSULE 600 MG PO (08:06)
[2023-06-06] MEDS: cloNIDine HCL 0.1 MG TABLET PO ×2 (08:06→15:52)
[2023-06-06] MEDS: chlorproMAZINE HCl 25 MG TABLET 50 MG PO ×3 (08:07→21:43)
[2023-06-06] MEDS: metFORMIN HCl 500 MG TABLET PO (08:07)
[2023-06-06] MEDS: QUEtiapine Fumarate 300 MG TABLET PO ×2 (08:07→21:44)
[2023-06-06] MEDS: Furosemide 20 MG TABLET PO (08:07)
[2023-06-06] MEDS: Omeprazole 20 MG CAPSULE.DR PO (08:09)
[2023-06-06] MEDS: Buprenorphine/Naloxone 2/0.5mg FILM 1 FILM SUBLINGUAL (08:39)
[2023-06-06] MEDS: Albuterol Sulfate 90 MCG 8 GM INHALER 2 PUFF INHALE (14:17)
[2023-06-06] MEDS: clonazePAM 1 MG TABLET PO ×2 (15:50→21:43)
[2023-06-06] MEDS: Rivaroxaban 10 MG TABLET PO (17:17)
[2023-06-06] MEDS: Simethicone 80 MG TAB.CHEW PO (19:56)
[2023-06-06] MEDS: Ondansetron ODT 4 MG TAB.RAPDIS TRANSLINGU (19:56)
--- NOTE | 2023-06-06 20:18 | HO.PSYCHPN ---
Subjective Subjective Date of Service: 06/06/23 Reason For Visit: Crisis Subjective Notes: Conditional Voluntary Interim History: Pt continues to appear very somnolent during the day, but when asked he denies. He denies SI/HI. He has been in bed, taking a nap. He is pleasant on approach. No behavioral concerns. Review of Systems Review of Systems Unremarkable Yes all other systems are reviewed and are negative Constitutional: Reports as per HPI Mental Status Exam Mental Status Exam Narrative: calm, cooperative. dressed in street clothes. adequately groomed. no PMA/PMR. speech nml rate, amount, loudness, tone, latency. no SI/SIBI/HI/AVH expressed. Diagnostics Vital Signs (24Hr): Vital Signs - 24 hr 06/05/23 20:30 06/06/23 08:00 Temperature 97.5 F 97.7 F Pulse Rate 88 80 Respiratory Rate 18 16 Blood Pressure 118/78 121/70 Pulse Oximetry 98 98 Oxygen Delivery Method Room Air Room Air BMI result Body Mass Index 38.3 Labs 05/25/23 16:29 06/03/23 08:26 Medications Medications Current Medications Acetaminophen (Acetaminophen 325 Mg Tablet) 650 mg PO Q6H PRN PRN Reason: Headache/Pain Mild Scale (1-3) Last Admin: 06/06/23 06:32 Dose: 650 mg Al Hydroxide/Mg Hydroxide (Magnesium Hydrox/Alum Hydrox 30 Ml Oral.Susp) 30 ml PO Q6H PRN PRN Reason: Heartburn/Nausea Last Admin: 06/01/23 11:00 Dose: 30 ml Albuterol Sulfate (Albuterol Sulfate 90 Mcg 8 Gm Inhaler) 2 puff INHALE Q4H PRN PRN Reason: Wheezing Last Admin: 06/06/23 14:17 Dose: 2 puff Buprenorphine/Naloxone (Buprenorphine/Naloxone 2/0.5mg Film) 1 film SUBLINGUAL DAILY [facility] Last Admin: 06/06/23 08:39 Dose: 1 film Chlorpromazine HCl (Chlorpromazine Hcl 25 Mg Tablet) 50 mg PO TID [facility] Last Admin: 06/06/23 15:53 Dose: 50 mg Clonazepam (Clonazepam 1 Mg Tablet) 1 mg PO TID [facility] Last Admin: 06/06/23 15:50 Dose: 1 mg Clonidine HCl (Clonidine Hcl 0.1 Mg Tablet) 0.1 mg PO BID@0900,1500 [facility]; Protocol Last Admin: 06/06/23 15:52 Dose: 0.1 mg Dicyclomine HCl (Dicyclomine Hcl 10 Mg Capsule) 10 mg PO QIDACHS PRN PRN Reason: stomach cramping Last Admin: 06/05/23 04:27 Dose: 10 mg Furosemide (Furosemide 20 Mg Tablet) 20 mg PO DAILY [facility]; Protocol Last Admin: 06/06/23 08:07 Dose: 20 mg Hydroxyzine HCl (Hydroxyzine Hcl 25 Mg Tablet) 25 mg PO Q6H PRN PRN Reason: Anxiety Last Admin: 06/04/23 03:25 Dose: 25 mg Levothyroxine Sodium (Levothyroxine Sodium 50 Mcg Tablet) 50 mcg PO DAILY@0600 [facility] Last Admin: 06/06/23 06:35 Dose: 50 mcg [place] Carbonate ([place] Carbonate Er 300 Mg Tablet.Er) 600 mg PO BEDTIME [facility] Last Admin: 06/05/23 20:49 Dose: 600 mg [place] Carbonate ([place] Carbonate 300 Mg Capsule) 600 mg PO DAILY [facility] Last Admin: 06/06/23 08:06 Dose: 600 mg Magnesium Hydroxide (Milk Of Magnesia 30 Ml Oral.Susp) 30 ml PO DAILY PRN PRN Reason: Constipation Metformin HCl (Metformin Hcl 500 Mg Tablet) 500 mg PO DAILY [facility] Last Admin: 06/06/23 08:07 Dose: 500 mg Nicotine Polacrilex (Nicotine Polacrilex 2 Mg Gum) 4 mg BUCCAL Q2H PRN PRN Reason: Nicotine Cravings Last Admin: 06/04/23 14:55 Dose: 4 mg Omeprazole (Omeprazole 20 Mg Capsule.Dr) 20 mg PO DAILY@0630 [facility] Last Admin: 06/06/23 08:09 Dose: 20 mg Ondansetron HCl (Ondansetron Odt 4 Mg Tab.Rapdis) 4 mg TRANSLINGU Q8H PRN PRN Reason: Nausea Last Admin: 06/06/23 19:56 Dose: 4 mg Ondansetron HCl (Ondansetron Odt 4 Mg Tab.Rapdis) 4 mg TRANSLINGU Q8H PRN PRN Reason: Nausea Polyethylene Glycol (Polyethylene Glycol 3350 17 Gm Powd.Pack) 17 gm PO DAILY [facility] Last Admin: 06/06/23 08:05 Dose: 17 gm Prazosin HCl (Prazosin Hcl 1 Mg Capsule) 4 mg PO BEDTIME [facility]; Protocol Last Admin: 06/05/23 20:49 Dose: 4 mg Quetiapine Fumarate (Quetiapine Fumarate 300 Mg Tablet) 300 mg PO DAILY [facility] Last Admin: 06/06/23 08:07 Dose: 300 mg Quetiapine Fumarate (Quetiapine Fumarate 300 Mg Tablet) 300 mg PO BEDTIME [facility] Last Admin: 06/05/23 20:49 Dose: 300 mg Quetiapine Fumarate (Quetiapine Fumarate 100 Mg Tablet) 100 mg PO DAILY PRN PRN Reason: sleep/anxiety Last Admin: 06/06/23 01:20 Dose: 100 mg Rivaroxaban (Rivaroxaban 10 Mg Tablet) 10 mg PO DAILY@1700 [facility] Last Admin: 06/06/23 17:17 Dose: 10 mg Simethicone (Simethicone 80 Mg Tab.Chew) 80 mg PO QIDWMHS PRN PRN Reason: stomach pain Last Admin: 06/06/23 19:56 Dose: 80 mg Trazodone HCl (Trazodone Hcl 50 Mg Tablet) 50 mg PO BEDTIME PRN PRN Reason: Insomnia Last Admin: 06/05/23 21:54 Dose: 50 mg Allergies Allergies Allergy/AdvReac Type Severity Reaction Status Date / Time phenytoin [From DILANTIN] Allergy Unknown UNKNOWN Verified 05/25/23 11:18 venlafaxine [From EFFEXOR] Allergy Unknown UNKNOWN Verified 05/25/23 11:18 Dilantin Allergy Unknown Unknown Uncoded 05/25/23 11:18 Effexor Allergy Unknown Unknown Uncoded 05/25/23 11:18 MEDICAL TAPE Allergy Unknown UNKNOWN Uncoded 06/06/20 15:26 Assessment & Plan Assessment & Plan (1) Bipolar I disorder with mixed features: Status: Acute Code(s): F31.9 - Bipolar disorder, unspecified (2) PTSD (post-traumatic stress disorder): Status: Acute Code(s): F43.10 - Post-traumatic stress disorder, unspecified (3) Cocaine use disorder: Status: Acute Code(s): F14.10 - Cocaine abuse, uncomplicated (4) Alcohol use disorder: Status: Acute Code(s): F10.90 - Alcohol use, unspecified, uncomplicated (5) History of seizure: Status: Acute Code(s): Z87.898 - Personal history of other specified conditions (6) Diabetes mellitus: Qualifiers: Diabetes mellitus complication status: without complication Diabetes mellitus type: type 2 Status: Acute Code(s): E11.9 - Type 2 diabetes mellitus without complications Plan 05/27: restart home medications. add clonidine 0.1/0.1/0.2 for BP and nightmares and insomnia in PTSD. 05/28: c/o nightmares and insomnia. increase HS clonidine dosing to 0.3 mg. otherwise continue current mgmt. 05/29/2023: Add Seroquel 100 mg at bedtime 05/30: increase Seroquel at bedtime to 200mg, also add prazosin and DC clonidine at bedtime. Will also order lithium level. 05/31: slept better, no nightmares. increase seroquel at HS to 300 mg. declines to DC thorazine. looking into [facility]/sober houses. 06/01: lithium level 0.48. increase lithium dosing to 1200 mg daily. nightmare last night but otherwise slept well. looking into [facility]. 06/02: very poor sleep, with nightmares. increase prazosin to 4 mg tonight, otherwise continue current mgmt. 06/03: slept well, no nightmares. check labs wednesday, including lithium level (ordered). continue current mgmt. 06/04 reports still broken sleep. added seroquel 100mg po prn qhs- however he is a lot of sedating meds, may benefit from sleep study if still struggling with sleep. 06/05 oversedated during the day, which pt disagrees. 06/06 continue tx. continue to present over sedated. Reason for continued inpatient stay Substantial Risk for: inability to function Time Spent With Patient Time: Total time managing care of this patient today ____ minutes.
[2023-06-06 21:35] VITALS: BP 119/60; PULSE 93; RESP 16; TEMP 36.6; O2SAT 97
[2023-06-06] MEDS: Prazosin HCL 1 MG CAPSULE 4 MG PO (21:42)
[2023-06-06] MEDS: Lithium Carbonate ER 300 MG TABLET.ER 600 MG PO (21:44)
[2023-06-06] MEDS: traZODone HCL 50 MG TABLET PO (21:44)
[2023-06-07] MEDS: Levothyroxine Sodium 50 MCG TABLET PO (06:24)
[2023-06-07 08:00] VITALS: BP 127/81; PULSE 83; TEMP 36.1; O2SAT 98
[2023-06-07] MEDS: chlorproMAZINE HCl 25 MG TABLET 50 MG PO ×3 (08:04→21:24)
[2023-06-07] MEDS: Lithium Carbonate 300 MG CAPSULE 600 MG PO (08:05)
[2023-06-07] MEDS: QUEtiapine Fumarate 300 MG TABLET PO ×2 (08:05→21:23)
[2023-06-07] MEDS: Furosemide 20 MG TABLET PO (08:05)
[2023-06-07] MEDS: metFORMIN HCl 500 MG TABLET PO (08:06)
[2023-06-07] MEDS: clonazePAM 1 MG TABLET PO ×3 (08:06→21:24)
[2023-06-07] MEDS: Omeprazole 20 MG CAPSULE.DR PO (08:06)
[2023-06-07] MEDS: cloNIDine HCL 0.1 MG TABLET PO ×2 (08:07→14:24)
[2023-06-07] MEDS: polyethylene glycoL 3350 17 GM POWD.PACK PO (08:07)
[2023-06-07] MEDS: Acetaminophen 325 MG TABLET 650 MG PO (08:16)
[2023-06-07] MEDS: Buprenorphine/Naloxone 2/0.5mg FILM 1 FILM SUBLINGUAL (08:30)
[2023-06-07 09:05] LABS: MANUAL DIFF FLAG NO
[2023-06-07 09:18] LABS: Basophils Absolute Auto 0.1 X10*3/uL (0.0-0.2); Basophils Percent Auto 0.7 % (0-2); Eosinophils Absolute Auto 0.4 X10*3/uL (0.0-0.4); Eosinophils Percent Auto 5.3 % (0-4); Hematocrit 39.4 % (42.0-52.0); Imm Gran Abs Auto 0.03 X10*3/uL (0.00-0.03); Imm Gran Pct Auto 0.4 % (0.0-0.4); Lymphocytes Absolute Auto 2.3 X10*3/uL (1.2-4.9); Lymphocytes Percent Auto 27.9 % (20-40); Mean Corpuscular Hemoglobin 28.6 pg (27.0-33.0); Mean Corpuscular Volume 86.8 fL (80.0-98.0); Mean Platelet Volume 9.9 fL (9.4-12.4); Monocytes Absolute Auto 0.7 X10*3/uL (0.1-1.2); Monocytes Percent Auto 8.5 % (2-11); Neutrophils Absolute Auto 4.8 x10*3/uL (2.0-8.3); Neutrophils Percent Auto 57.2 % (45-73); Platelet Count 274 X10*3/uL (160-400); Red Blood Count 4.54 X10*6/uL (4.60-5.80); Red Cell Distribution Width 13.2 % (11.0-16.0); White Blood Count 8.3 X10*3/uL (4.8-10.8)
[2023-06-07 09:21] LABS: Lithium 0.78 mmol/L (0.60-1.20)
[2023-06-07 09:29] LABS: Anion Gap 9 (12-20); Blood Urea Nitrogen 18 mg/dL (9-16); Calcium 9.8 mg/dL (8.4-10.2); Carbon Dioxide 27 mmol/L (22-29); Chloride 103 mmol/L (96-108); Creatinine Clr Calc Pharmacy 107.2; Estimated Glomerular Filt Rate > 60; Glucose Random 119 mg/dL (60-115); Potassium 4.4 mmol/L (3.3-5.1); Sodium 135 mmol/L (135-145)
[2023-06-07 14:19] VITALS: BP 134/79; PULSE 96
[2023-06-07] MEDS: Rivaroxaban 10 MG TABLET PO (16:27)
--- NOTE | 2023-06-07 17:30 | HO.PSYCHPN ---
Subjective Subjective Date of Service: 06/07/23 Reason For Visit: Crisis Interim History: reports doing well, sleeping well over w/e without nightmares. lithium level 0.78, about which he is pleased. states his mood has improved along with the level. discuss discharge, pt becomes upset, states he was assured he would not be thrown out of the hospital onto the street. he believes he is on the cusp of obtaining admission to some kind of sober living or residential substance use treatment program. per staff pt had a good w/e without issues. today in discussion of discharge planning with MD and SW became more agitated. Mental Status Exam Mental Status Exam Narrative: calm, cooperative. dressed in street clothes. adequately groomed. no PMA/PMR. speech nml rate, amount, loudness, tone, latency. no SI/SIBI/HI/AVH expressed. Diagnostics Vital Signs (24Hr): Vital Signs - 24 hr 06/06/23 21:35 06/07/23 08:00 06/07/23 14:19 Temperature 98 F 97 F Pulse Rate 93 83 96 Respiratory Rate 16 Blood Pressure 119/60 127/81 134/79 Pulse Oximetry 97 98 Oxygen Delivery Method Room Air Room Air BMI result Body Mass Index 38.3 Labs 06/07/23 08:49 06/07/23 08:49 Labs: Laboratory Results - last 48 hr 06/07/23 08:49 WBC 8.3 RBC 4.54 L Hgb 13.0 L Hct 39.4 L MCV 86.8 MCH 28.6 MCHC 33.0 RDW 13.2 Plt Count 274 MPV 9.9 Immature Gran % (Auto) 0.4 Neut % (Auto) 57.2 Lymph % (Auto) 27.9 [place] % (Auto) 8.5 Eos % (Auto) 5.3 H Baso % (Auto) 0.7 Lymph # (Auto) 2.3 [place] # (Auto) 0.7 Eos # (Auto) 0.4 Baso # (Auto) 0.1 Abs Immat Gran (auto) 0.03 Absolute Neuts (auto) 4.8 Absolute Nucleated RBC 0.000 Nucleated RBC % (auto) 0.0 Sodium 135 Potassium 4.4 Chloride 103 Carbon Dioxide 27 Anion Gap 9 L BUN 18 H Creatinine 1.17 Estim Creat Clear Calc 107.2 Estimated GFR > 60 Random Glucose 119 H Calcium 9.8 D [place] 0.78 Medications Medications Current Medications Acetaminophen (Acetaminophen 325 Mg Tablet) 650 mg PO Q6H PRN PRN Reason: Headache/Pain Mild Scale (1-3) Last Admin: 06/07/23 08:16 Dose: 650 mg Al Hydroxide/Mg Hydroxide (Magnesium Hydrox/Alum Hydrox 30 Ml Oral.Susp) 30 ml PO Q6H PRN PRN Reason: Heartburn/Nausea Last Admin: 06/01/23 11:00 Dose: 30 ml Albuterol Sulfate (Albuterol Sulfate 90 Mcg 8 Gm Inhaler) 2 puff INHALE Q4H PRN PRN Reason: Wheezing Last Admin: 06/06/23 14:17 Dose: 2 puff Buprenorphine/Naloxone (Buprenorphine/Naloxone 2/0.5mg Film) 1 film SUBLINGUAL DAILY [facility] Last Admin: 06/07/23 08:30 Dose: 1 film Chlorpromazine HCl (Chlorpromazine Hcl 25 Mg Tablet) 50 mg PO TID [facility] Last Admin: 06/07/23 14:23 Dose: 50 mg Clonazepam (Clonazepam 1 Mg Tablet) 1 mg PO TID [facility] Last Admin: 06/07/23 14:24 Dose: 1 mg Clonidine HCl (Clonidine Hcl 0.1 Mg Tablet) 0.1 mg PO BID@0900,1500 [facility]; Protocol Last Admin: 06/07/23 14:24 Dose: 0.1 mg Dicyclomine HCl (Dicyclomine Hcl 10 Mg Capsule) 10 mg PO QIDACHS PRN PRN Reason: stomach cramping Last Admin: 06/05/23 04:27 Dose: 10 mg Furosemide (Furosemide 20 Mg Tablet) 20 mg PO DAILY [facility]; Protocol Last Admin: 06/07/23 08:05 Dose: 20 mg Hydroxyzine HCl (Hydroxyzine Hcl 25 Mg Tablet) 25 mg PO Q6H PRN PRN Reason: Anxiety Last Admin: 06/04/23 03:25 Dose: 25 mg Levothyroxine Sodium (Levothyroxine Sodium 50 Mcg Tablet) 50 mcg PO DAILY@0600 [facility] Last Admin: 06/07/23 06:24 Dose: 50 mcg [place] Carbonate ([place] Carbonate Er 300 Mg Tablet.Er) 600 mg PO BEDTIME [facility] Last Admin: 06/06/23 21:44 Dose: 600 mg [place] Carbonate ([place] Carbonate 300 Mg Capsule) 600 mg PO DAILY [facility] Last Admin: 06/07/23 08:05 Dose: 600 mg Magnesium Hydroxide (Milk Of Magnesia 30 Ml Oral.Susp) 30 ml PO DAILY PRN PRN Reason: Constipation Metformin HCl (Metformin Hcl 500 Mg Tablet) 500 mg PO DAILY [facility] Last Admin: 06/07/23 08:06 Dose: 500 mg Nicotine Polacrilex (Nicotine Polacrilex 2 Mg Gum) 4 mg BUCCAL Q2H PRN PRN Reason: Nicotine Cravings Last Admin: 06/04/23 14:55 Dose: 4 mg Omeprazole (Omeprazole 20 Mg Capsule.Dr) 20 mg PO DAILY@0630 [facility] Last Admin: 06/07/23 08:06 Dose: 20 mg Ondansetron HCl (Ondansetron Odt 4 Mg Tab.Rapdis) 4 mg TRANSLINGU Q8H PRN PRN Reason: Nausea Last Admin: 06/06/23 19:56 Dose: 4 mg Ondansetron HCl (Ondansetron Odt 4 Mg Tab.Rapdis) 4 mg TRANSLINGU Q8H PRN PRN Reason: Nausea Polyethylene Glycol (Polyethylene Glycol 3350 17 Gm Powd.Pack) 17 gm PO DAILY [facility] Last Admin: 06/07/23 08:07 Dose: 17 gm Prazosin HCl (Prazosin Hcl 1 Mg Capsule) 4 mg PO BEDTIME [facility]; Protocol Last Admin: 06/06/23 21:42 Dose: 4 mg Quetiapine Fumarate (Quetiapine Fumarate 300 Mg Tablet) 300 mg PO DAILY [facility] Last Admin: 06/07/23 08:05 Dose: 300 mg Quetiapine Fumarate (Quetiapine Fumarate 300 Mg Tablet) 300 mg PO BEDTIME [facility] Last Admin: 06/06/23 21:44 Dose: 300 mg Quetiapine Fumarate (Quetiapine Fumarate 100 Mg Tablet) 100 mg PO DAILY PRN PRN Reason: sleep/anxiety Last Admin: 06/06/23 01:20 Dose: 100 mg Rivaroxaban (Rivaroxaban 10 Mg Tablet) 10 mg PO DAILY@1700 [facility] Last Admin: 06/07/23 16:27 Dose: 10 mg Simethicone (Simethicone 80 Mg Tab.Chew) 80 mg PO QIDWMHS PRN PRN Reason: stomach pain Last Admin: 06/06/23 19:56 Dose: 80 mg Trazodone HCl (Trazodone Hcl 50 Mg Tablet) 50 mg PO BEDTIME PRN PRN Reason: Insomnia Last Admin: 06/06/23 21:44 Dose: 50 mg Allergies Allergies Allergy/AdvReac Type Severity Reaction Status Date / Time phenytoin [From DILANTIN] Allergy Unknown UNKNOWN Verified 05/25/23 11:18 venlafaxine [From EFFEXOR] Allergy Unknown UNKNOWN Verified 05/25/23 11:18 Dilantin Allergy Unknown Unknown Uncoded 05/25/23 11:18 Effexor Allergy Unknown Unknown Uncoded 05/25/23 11:18 MEDICAL TAPE Allergy Unknown UNKNOWN Uncoded 06/06/20 15:26 Assessment & Plan Assessment & Plan (1) Bipolar I disorder with mixed features: Status: Acute Code(s): F31.9 - Bipolar disorder, unspecified (2) PTSD (post-traumatic stress disorder): Status: Acute Code(s): F43.10 - Post-traumatic stress disorder, unspecified (3) Cocaine use disorder: Status: Acute Code(s): F14.10 - Cocaine abuse, uncomplicated (4) Alcohol use disorder: Status: Acute Code(s): F10.90 - Alcohol use, unspecified, uncomplicated (5) History of seizure: Status: Acute Code(s): Z87.898 - Personal history of other specified conditions (6) Diabetes mellitus: Qualifiers: Diabetes mellitus type: type 2 Diabetes mellitus complication status: without complication Status: Acute Code(s): E11.9 - Type 2 diabetes mellitus without complications Plan 05/27: restart home medications. add clonidine 0.1/0.1/0.2 for BP and nightmares and insomnia in PTSD. 05/28: c/o nightmares and insomnia. increase HS clonidine dosing to 0.3 mg. otherwise continue current mgmt. 05/29/2023: Add Seroquel 100 mg at bedtime 05/30: increase Seroquel at bedtime to 200mg, also add prazosin and DC clonidine at bedtime. Will also order lithium level. 05/31: slept better, no nightmares. increase seroquel at HS to 300 mg. declines to DC thorazine. looking into [facility]/sober houses. 06/01: lithium level 0.48. increase lithium dosing to 1200 mg daily. nightmare last night but otherwise slept well. looking into [facility]. 06/02: very poor sleep, with nightmares. increase prazosin to 4 mg tonight, otherwise continue current mgmt. 06/03: slept well, no nightmares. check labs wednesday, including lithium level (ordered). continue current mgmt. 06/04 reports still broken sleep. added seroquel 100mg po prn qhs- however he is a lot of sedating meds, may benefit from sleep study if still struggling with sleep. 06/05 oversedated during the day, which pt disagrees. 06/06 continue tx. continue to present over sedated. 06/07: sleeping well, lithium level 0.78. some concern for renal fxn - OK at the moment, but lasix may not be tenable. continue current mgmt. became agitated when dispo discussion was attempted by SW. Reason for continued inpatient stay Substantial Risk for: inability to function and rapid decompensation Time Spent With Patient Time: Total time managing care of this patient today __25__ minutes.
[2023-06-07] MEDS: Nicotine Polacrilex 2 MG GUM 4 MG BUCCAL (18:46)
[2023-06-07 20:17] VITALS: BP 117/69; PULSE 96; RESP 16; TEMP 36.3; O2SAT 98
[2023-06-07] MEDS: Lithium Carbonate ER 300 MG TABLET.ER 600 MG PO (21:23)
[2023-06-07] MEDS: Prazosin HCL 1 MG CAPSULE 4 MG PO (21:24)
[2023-06-07] MEDS: traZODone HCL 50 MG TABLET PO (21:24)
[2023-06-07] MEDS: Albuterol Sulfate 90 MCG 8 GM INHALER 2 PUFF INHALE (21:47)
[2023-06-08] MEDS: QUEtiapine Fumarate 100 MG TABLET PO (01:32)
[2023-06-08] MEDS: Acetaminophen 325 MG TABLET 650 MG PO (06:37)
[2023-06-08] MEDS: Levothyroxine Sodium 50 MCG TABLET PO (06:37)
[2023-06-08 08:05] VITALS: BP 137/76; PULSE 96; RESP 16; TEMP 36.2; O2SAT 98
[2023-06-08] MEDS: chlorproMAZINE HCl 25 MG TABLET 50 MG PO (08:17)
[2023-06-08] MEDS: metFORMIN HCl 500 MG TABLET PO (08:18)
[2023-06-08] MEDS: Lithium Carbonate 300 MG CAPSULE 600 MG PO (08:18)
[2023-06-08] MEDS: Omeprazole 20 MG CAPSULE.DR PO (08:18)
[2023-06-08] MEDS: QUEtiapine Fumarate 300 MG TABLET PO (08:19)
[2023-06-08] MEDS: clonazePAM 1 MG TABLET PO (08:19)
[2023-06-08] MEDS: polyethylene glycoL 3350 17 GM POWD.PACK PO (08:19)
[2023-06-08] MEDS: Furosemide 20 MG TABLET PO (08:19)
[2023-06-08] MEDS: cloNIDine HCL 0.1 MG TABLET PO (08:19)
[2023-06-08] MEDS: Buprenorphine/Naloxone 2/0.5mg FILM 1 FILM SUBLINGUAL (08:33)
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
== END 2023-06-08 11:36 | disposition home or self-care (01) | DRG 885 ==
LOC: HO.ED 15:46 → HO.PADLT16 05-26 16:14
PROVIDERS: Nurse Practitioner Family; Physician Assistant; Psychiatry & Neurology Psychiatry; Admitting Provider Psychiatry & Neurology Psychiatry; Emergency Provider Emergency Medicine; Visit Provider Psychiatry & Neurology Psychiatry
DX: F31.60 Bipolar disorder, current episode mixed, unspecified (principal); R45.851 Suicidal ideations; F11.20 Opioid dependence, uncomplicated; F17.210 Nicotine dependence, cigarettes, uncomplicated; F43.10 Post-traumatic stress disorder, unspecified; F14.10 Cocaine abuse, uncomplicated; E11.9 Type 2 diabetes mellitus without complications; Z71.6 Tobacco abuse counseling; Z20.822 Contact with and (suspected) exposure to COVID-19; F10.90 Alcohol use, unspecified, uncomplicated; Y90.4 Blood alcohol level of 80-99 mg/100 ml; Z62.810 Personal history of physical and sexual abuse in childhood; Z59.02 Unsheltered homelessness; Z79.01 Long term (current) use of anticoagulants; Z79.84 Long term (current) use of oral hypoglycemic drugs; Z79.890 Hormone replacement therapy; Z79.899 Other long term (current) drug therapy
CPT/HCPCS: 36415; 80048; 80053; 80061; 80143; 80178; 80179; 80307; 81003; 82565; 82607; 82746; 83036; 83735; 84439; 84443; 85025; 87635; 93005; 99285; S9485

== ENCOUNTER → 2023-05-26 16:05 | Outpatient (BNV) | payer MEDICARE, SELFPAY | PROVIDERS: Admitting Provider Psychiatry & Neurology Psychiatry; Emergency Provider Emergency Medicine; Visit Provider Psychiatry & Neurology Psychiatry | DX: F31.9 Bipolar disorder, unspecified (principal); F43.10 Post-traumatic stress disorder, unspecified; F14.10 Cocaine abuse, uncomplicated; F10.90 Alcohol use, unspecified, uncomplicated; Z87.898 Personal history of other specified conditions; E11.9 Type 2 diabetes mellitus without complications | CPT/HCPCS: 90792; 99231; 99232; 99239 ==